=== PATIENT | male | born 1955 | race Hispanic/Latino ===

== ENCOUNTER 2021-10-13 20:46 | Inpatient (IN) | payer MEDICARE, OTHER ==
[~2021-10-13] VITALS: Ht 172.7 cm; Wt 68.5 kg
[2021-10-13 21:41] LABS: BASOPHILS % (AUTO) 1.2 % (0.0-5.0); EOSINOPHILS % (AUTO) 2.4 % (0.0-8.0); LYMPHOCYTES % (AUTO) 19.6 % (21.0-51.0); MEAN CORPUSCULAR HEMOGLOBIN 24.6 pg (27.0-33.0); MEAN CORPUSCULAR VOLUME 81.9 fL (79-99); MONOCYTES % (AUTO) 10.6 % (3.0-13.0); NEUTROPHILS % (AUTO) 65.8 % (40.0-77.0); PLATELET COUNT (AUTO) 302 K/uL (130-400); RED BLOOD CELL COUNT(AUTO) 2.48 MIL/uL (4.50-6.20); RED CELL DISTRIBUTION WIDTH 21.5 % (11.0-15.5); WHITE BLOOD COUNT (AUTO) 7.8 K/uL (4.8-10.8)
[2021-10-13 21:49] LABS: HEMATOCRIT 20.3 % (42-54)
[2021-10-13 21:50] LABS: CREATININE 1.3 mg/dL (0.5-1.5); POTASSIUM 3.5 mmol/L (3.5-5.1)
[2021-10-13 21:55] LABS: ALBUMIN 2.5 g/dL (3.5-5.0); TOTAL PROTEIN, SERUM 7.4 g/dL (6.0-8.3)
[2021-10-13 22:08] LABS: APPEARANCE,URINE CLEAR (CLEAR); BILIRUBIN,URINE NEGATIVE (NEGATIVE); COLOR,URINE YELLOW (YELLOW); GLUCOSE, URINE (UA) 100 mg/dL (NEGATIVE); KETONES,URINE NEGATIVE (NEGATIVE); LEUKOCYTE ESTERASE ,URINE NEGATIVE (NEGATIVE); NITRATE,URINE NEGATIVE (NEGATIVE); OCCULT BLOOD,URINE NEGATIVE (NEGATIVE); PROTEIN,URINE NEGATIVE (NEGATIVE); UROBILINOGEN,URINE 0.2 mg/dL (0.2-1.0)
[2021-10-13] MEDS ORDERED: ACETAMINOPHEN 325 MG TAB PO PRN (22:30)
[2021-10-13] MEDS ORDERED: PANTOPRAZOLE 40 MG/VIAL IVP ONE (22:30)
[2021-10-13] MEDS ORDERED: ZOLPIDEM TARTRATE 5 MG TAB PO PRN (22:30)
[2021-10-13] MEDS ORDERED: ONDANSETRON 4MG INJ IV PRN (22:30)
[2021-10-13 22:43] LABS: RBC,URINE 0-1 /HPF (0-1); WBC,URINE 0-1 /HPF (0-1)
[2021-10-13 22:44] LABS: BACTERIA,URINE None Seen /HPF (None Seen); SQUAMOUS EPITHELIAL CELL,UR Rare /HPF (0-2)
[2021-10-14] MEDS: LACTULOSE 20 GM/30 ML UDCUP PO SCH ×4 (02:17→21:47)
[2021-10-14] MEDS ORDERED: LACT10SO5 PO (02:23)
[2021-10-14] MEDS ORDERED: SIMV-43 PO (02:27)
[2021-10-14] MEDS ORDERED: GLIP5TAB11 PO (02:27)
[2021-10-14] MEDS ORDERED: VITA1TAB22 PO (02:27)
[2021-10-14] MEDS ORDERED: SPIR50TA5 PO (02:27)
[2021-10-14] MEDS ORDERED: LISI10TA24 PO (02:27)
[2021-10-14] MEDS ORDERED: METF-446 PO (02:27)
[2021-10-14] MEDS ORDERED: PANT40TA54 PO (02:27)
[2021-10-14] MEDS ORDERED: FURO40TA5 PO (02:27)
[2021-10-14 06:11] LABS: BASOPHILS % (AUTO) 1.7 % (0.0-5.0); EOSINOPHILS % (AUTO) 5.1 % (0.0-8.0); HEMATOCRIT 23.8 % (42-54); LYMPHOCYTES % (AUTO) 24.2 % (21.0-51.0); MEAN CORPUSCULAR HGB CONC 31.5 g/dL (32.0-36.0); MEAN CORPUSCULAR VOLUME 82.6 fL (79-99); MONOCYTES % (AUTO) 11.6 % (3.0-13.0); NEUTROPHILS % (AUTO) 57.1 % (40.0-77.0); PLATELET COUNT (AUTO) 276 K/uL (130-400); RED BLOOD CELL COUNT(AUTO) 2.88 MIL/uL (4.50-6.20); RED CELL DISTRIBUTION WIDTH 20.1 % (11.0-15.5); WHITE BLOOD COUNT (AUTO) 6.5 K/uL (4.8-10.8)
[2021-10-14 06:24] LABS: HEMOGLOBIN A1C 8.4 % (4.0-6.0)
[2021-10-14 06:25] LABS: CREATININE 1.1 mg/dL (0.5-1.5); MAGNESIUM 1.4 mg/dL (1.80-2.40); PHOSPHORUS 2.7 mg/dL (2.5-4.9); POTASSIUM 3.6 mmol/L (3.5-5.1)
[2021-10-14] MEDS: INSULIN HUMULIN R 100 UNIT/ML 3ML SQ SCH ×4 (07:30→21:51)
[2021-10-14] MEDS ORDERED: PANTOPRAZOLE 40 MG/VIAL IVP SCH (09:00)
[2021-10-14 09:57] LABS: HEMATOCRIT 26.2 % (42-54)
[2021-10-14] MEDS: MAGNESIUM 2GM PREMIX 50ML 50 ML IV SCH (10:08)
[2021-10-14 10:10] LABS: INR 1.1 (0.85-1.15); PROTHROMBIN TIME 11.9 SEC (9.6-11.6)
[2021-10-14 10:11] LABS: PARTIAL THROMBOPLASTIN TIME 26.4 SEC (26.3-35.5)
[2021-10-14] MEDS ORDERED: FOLIC ACID 5 MG/ML VIAL IV SCH (11:30)
[2021-10-14 12:00] VITALS: BP 131/67
[2021-10-14] MEDS ORDERED: COMPOUND IV REFRIGERATED 1 EACH IVSOLN MISC PRN (12:00)
[2021-10-14] MEDS ORDERED: LACTULOSE 20 GM/30 ML UDCUP PO SCH (12:30)
[2021-10-14] MEDS: CEFTRIAXONE 1G VIAL IVP SCH (13:34)
[2021-10-14] MEDS: THIAMINE HCL 100 MG/ML 2ML VIAL IVP SCH (13:34)
[2021-10-14 16:00] VITALS: BP 132/62
[2021-10-14 17:08] LABS: HEMATOCRIT 24.6 % (42-54)
[2021-10-14 20:00] VITALS: BP 136/70
[2021-10-14] MEDS: PANTOPRAZOLE 40 MG/VIAL IVP SCH (21:46)
[2021-10-14 21:51] LABS: HEMATOCRIT 25.1 % (42-54)
[2021-10-14 23:30] VITALS: BP 116/58
[2021-10-15] VITALS (12 sets, daily range): BP systolic 95–139; BP diastolic 53–80
[2021-10-15] MEDS: LACTULOSE 20 GM/30 ML UDCUP PO SCH ×4 (04:11→20:48)
[2021-10-15 05:20] LABS: BASOPHILS % (AUTO) 1.7 % (0.0-5.0); EOSINOPHILS % (AUTO) 4.3 % (0.0-8.0); HEMATOCRIT 26.3 % (42-54); LYMPHOCYTES % (AUTO) 19.2 % (21.0-51.0); MEAN CORPUSCULAR HEMOGLOBIN 25.7 pg (27.0-33.0); MEAN CORPUSCULAR HGB CONC 30.8 g/dL (32.0-36.0); MEAN CORPUSCULAR VOLUME 83.5 fL (79-99); MONOCYTES % (AUTO) 9.4 % (3.0-13.0); NEUTROPHILS % (AUTO) 65.3 % (40.0-77.0); PLATELET COUNT (AUTO) 314 K/uL (130-400); RED BLOOD CELL COUNT(AUTO) 3.15 MIL/uL (4.50-6.20); RED CELL DISTRIBUTION WIDTH 20.4 % (11.0-15.5); WHITE BLOOD COUNT (AUTO) 7.7 K/uL (4.8-10.8)
[2021-10-15 05:43] LABS: ALBUMIN 2.5 g/dL (3.5-5.0); CREATININE 1.3 mg/dL (0.5-1.5); MAGNESIUM 1.7 mg/dL (1.80-2.40); POTASSIUM 3.6 mmol/L (3.5-5.1); TOTAL PROTEIN, SERUM 7.7 g/dL (6.0-8.3)
[2021-10-15] MEDS ORDERED: KCL 20 MEQ ERTAB PO ONE (06:11)
[2021-10-15] MEDS: MAGNESIUM 2GM PREMIX 50ML 50 ML IV SCH ×2 (06:12→08:57)
[2021-10-15] MEDS: INSULIN HUMULIN R 100 UNIT/ML 3ML SQ SCH ×4 (06:22→20:48)
[2021-10-15] MEDS: PANTOPRAZOLE 40 MG/VIAL IVP SCH ×2 (08:56→20:48)
[2021-10-15] MEDS ORDERED: PROPOFOL 10 MG/ML 20ML VIAL IV ONE ×2 (11:45→11:46)
[2021-10-15] MEDS: CEFTRIAXONE 1G VIAL IVP SCH (16:00)
[2021-10-15] MEDS: THIAMINE HCL 100 MG/ML 2ML VIAL IVP SCH (16:00)
[2021-10-15] MEDS: METOCLOPRAMIDE 10 MG/2 ML VIAL IVP SCH (16:07)
[2021-10-16] VITALS (13 sets, daily range): BP systolic 104–133; BP diastolic 54–71
[2021-10-16] MEDS: LACTULOSE 20 GM/30 ML UDCUP PO SCH ×4 (01:00→16:20)
[2021-10-16] MEDS: INSULIN HUMULIN R 100 UNIT/ML 3ML SQ SCH ×4 (06:48→20:36)
[2021-10-16 06:51] LABS: EOSINOPHILS % (AUTO) 5.2 % (0.0-8.0); HEMATOCRIT 24.4 % (42-54); LYMPHOCYTES % (AUTO) 28.4 % (21.0-51.0); MEAN CORPUSCULAR HEMOGLOBIN 25.7 pg (27.0-33.0); MEAN CORPUSCULAR HGB CONC 30.7 g/dL (32.0-36.0); MEAN CORPUSCULAR VOLUME 83.6 fL (79-99); MONOCYTES % (AUTO) 9.5 % (3.0-13.0); NEUTROPHILS % (AUTO) 54.7 % (40.0-77.0); PLATELET COUNT (AUTO) 248 K/uL (130-400); RED BLOOD CELL COUNT(AUTO) 2.92 MIL/uL (4.50-6.20); RED CELL DISTRIBUTION WIDTH 20.1 % (11.0-15.5); WHITE BLOOD COUNT (AUTO) 5.9 K/uL (4.8-10.8)
[2021-10-16 07:10] LABS: ALBUMIN 2.2 g/dL (3.5-5.0); CREATININE 1.1 mg/dL (0.5-1.5); POTASSIUM 3.6 mmol/L (3.5-5.1); TOTAL PROTEIN, SERUM 6.6 g/dL (6.0-8.3)
[2021-10-16] MEDS: METOCLOPRAMIDE 10 MG/2 ML VIAL IVP SCH ×3 (08:45→18:24)
[2021-10-16] MEDS: PANTOPRAZOLE 40 MG/VIAL IVP SCH (08:46)
[2021-10-16] MEDS: THIAMINE HCL 100 MG/ML 2ML VIAL IVP SCH (11:30)
[2021-10-16] MEDS ORDERED: PROPOFOL 10 MG/ML 20ML VIAL IV ONE (11:52)
[2021-10-16] MEDS ORDERED: LIDOCAINE PF 100MG/5ML (2%) SYRINGE 5ML ONE (11:53)
[2021-10-16] MEDS: CEFTRIAXONE 1G VIAL IVP SCH (13:02)
[2021-10-16] MEDS ORDERED: OCTREOTIDE 1,250 MCG /NS 250ML (DRIP) IV SCH ×2 (18:00)
[2021-10-16] MEDS: PANTOPRAZOLE 80 MG/NS 100ML IVP SCH ×2 (19:05)
[2021-10-17] MEDS: PANTOPRAZOLE 80 MG/NS 100ML IVP SCH ×4 (03:24→14:26)
[2021-10-17 04:33] VITALS: BP 126/69
[2021-10-17] MEDS: INSULIN HUMULIN R 100 UNIT/ML 3ML SQ SCH ×4 (07:06→21:06)
[2021-10-17] MEDS: LACTULOSE 20 GM/30 ML UDCUP PO SCH ×3 (07:08→19:06)
[2021-10-17 07:35] LABS: BASOPHILS % (AUTO) 2.3 % (0.0-5.0); EOSINOPHILS % (AUTO) 4.6 % (0.0-8.0); HEMATOCRIT 23.7 % (42-54); MEAN CORPUSCULAR HEMOGLOBIN 25.6 pg (27.0-33.0); MEAN CORPUSCULAR HGB CONC 30.8 g/dL (32.0-36.0); MEAN CORPUSCULAR VOLUME 83.2 fL (79-99); MONOCYTES % (AUTO) 10.6 % (3.0-13.0); NEUTROPHILS % (AUTO) 53.1 % (40.0-77.0); PLATELET COUNT (AUTO) 264 K/uL (130-400); RED BLOOD CELL COUNT(AUTO) 2.85 MIL/uL (4.50-6.20); RED CELL DISTRIBUTION WIDTH 19.8 % (11.0-15.5); WHITE BLOOD COUNT (AUTO) 5.2 K/uL (4.8-10.8)
[2021-10-17] MEDS: METOCLOPRAMIDE 10 MG/2 ML VIAL IVP SCH ×3 (07:52→19:06)
[2021-10-17 07:57] LABS: ALBUMIN 2.2 g/dL (3.5-5.0); CREATININE 1.1 mg/dL (0.5-1.5); POTASSIUM 4.5 mmol/L (3.5-5.1); TOTAL PROTEIN, SERUM 6.9 g/dL (6.0-8.3)
[2021-10-17 08:00] VITALS: BP 149/74
[2021-10-17] MEDS: THIAMINE HCL 100 MG/ML 2ML VIAL IVP SCH (11:30)
[2021-10-17] MEDS: CEFTRIAXONE 1G VIAL IVP SCH (11:39)
[2021-10-17 13:23] VITALS: BP 135/76
[2021-10-17 15:34] LABS: HEMATOCRIT 27.1 % (42-54)
[2021-10-17 17:00] VITALS: BP 106/69
[2021-10-17] MEDS: MAGNESIUM 2GM PREMIX 50ML 50 ML IV SCH (19:07)
[2021-10-17 21:12] VITALS: BP 152/94
[2021-10-17 23:39] LABS: HEMATOCRIT 28.2 % (42-54)
[2021-10-17 23:58] VITALS: BP 130/73
[2021-10-18] MEDS: LACTULOSE 20 GM/30 ML UDCUP PO SCH ×3 (00:54→11:16)
[2021-10-18 04:45] VITALS: BP 98/42
[2021-10-18] MEDS: METOCLOPRAMIDE 10 MG/2 ML VIAL IVP SCH ×2 (06:18→11:16)
[2021-10-18] MEDS: PANTOPRAZOLE 80 MG/NS 100ML IVP SCH ×4 (06:19→10:00)
[2021-10-18] MEDS: INSULIN HUMULIN R 100 UNIT/ML 3ML SQ SCH ×2 (06:23→11:16)
[2021-10-18 06:33] LABS: HEMATOCRIT 22.8 % (42-54)
[2021-10-18 08:00] VITALS: BP 137/72
[2021-10-18] MEDS ORDERED: IRON SUCROSE COMPLEX 100 MG in 0.9%NACL 50ML 50 ML IV SCH (10:30)
[2021-10-18] MEDS ORDERED: IRON SUCROSE COMPLEX 100 MG/5 ML VIAL IVP SCH (10:45)
[2021-10-18] MEDS: THIAMINE HCL 100 MG/ML 2ML VIAL IVP SCH (10:54)
[2021-10-18] MEDS: CEFTRIAXONE 1G VIAL IVP SCH (11:15)
[2021-10-18 12:00] VITALS: BP 117/62
[2021-10-18 13:55] LABS: HEMATOCRIT 25.1 % (42-54)
[2021-10-18] MEDS ORDERED: EPOETIN ALFA-EPBX (NON-ESRD) 10,000 UNIT/ML VIAL SQ SCH (15:30)
[2021-10-18 15:45] LABS: RETICULOCYTE % (AUTO) 1.75 % (0.42-2.23)
[2021-10-18 15:51] LABS: INR 1.19 (0.85-1.15); PROTHROMBIN TIME 12.8 SEC (9.6-11.6)
[2021-10-18 15:53] LABS: PARTIAL THROMBOPLASTIN TIME 32.4 SEC (26.3-35.5)
[2021-10-18 16:09] LABS: THYROID STIMULATING HORMONE 0.13 uIU/mL (0.36-3.74)
[2021-10-18 16:33] LABS: % IRON SATURATION 73.6 % (30-44)
[2021-10-18] MEDS ORDERED: LACTULOSE 20 GM/30 ML UDCUP PO SCH (21:00)
[2021-10-19] MEDS ORDERED: FUROSEMIDE 40 MG TABLET PO SCH (09:00)
[2021-10-19] MEDS ORDERED: SPIRONOLACTONE 25 MG TAB PO SCH (09:00)
== END 2021-10-18 18:30 | disposition left against medical advice (07) | DRG 432 ==
LOC: EDH 20:46 → EDHIP 22:12 → 3DH 10-14 10:43
PROVIDERS: ADMIT Hospitalist; ATTEND Hospitalist
PROC: 30233N1 Transfusion of Nonautologous Red Blood Cells into Peripheral Vein, Percutaneous Approach (ICD-10-PCS; 2021-10-13)
PROC: 0DJ08ZZ Inspection of Upper Intestinal Tract, Via Natural or Artificial Opening Endoscopic (ICD-10-PCS; 2021-10-15)
PROC: 0W3P8ZZ Control Bleeding in Gastrointestinal Tract, Via Natural or Artificial Opening Endoscopic (ICD-10-PCS; principal; 2021-10-16)
DX: K70.30 Alcoholic cirrhosis of liver without ascites (principal); K31.811 Angiodysplasia of stomach and duodenum with bleeding; D62 Acute posthemorrhagic anemia; E87.1 Hypo-osmolality and hyponatremia; K76.6 Portal hypertension; I85.00 Esophageal varices without bleeding; K70.40 Alcoholic hepatic failure without coma; E11.65 Type 2 diabetes mellitus with hyperglycemia; Z53.29 Procedure and treatment not carried out because of patient's decision for other reasons; Z20.822 Contact with and (suspected) exposure to COVID-19; E78.00 Pure hypercholesterolemia, unspecified; E78.5 Hyperlipidemia, unspecified; F17.210 Nicotine dependence, cigarettes, uncomplicated; I10 Essential (primary) hypertension; J44.9 Chronic obstructive pulmonary disease, unspecified; K21.9 Gastro-esophageal reflux disease without esophagitis; M19.90 Unspecified osteoarthritis, unspecified site; E87.8 Other disorders of electrolyte and fluid balance, not elsewhere classified; K31.89 Other diseases of stomach and duodenum
CPT/HCPCS: 36415; 43255; 76700; 80048; 80053; 81001; 82140; 82270; 82728; 82746; 82948; 83036; 83540; 83550; 83735; 84100; 84443; 85014; 85018; 85025; 85045; 85610; 85730; 86850; 86900; 86901; 86923; 87635; C9113; G0378; J0696; J1756; J1815; J2001; J2354; J2405; J2704; J2765; J3411; J3475; J3490; J7050; P9016

== ENCOUNTER → 2023-10-11 | Outpatient (CLI) | payer OTHER ==
[~2023-10-11] MED LIST: ALBUMIN (HUMAN) 25% 200 ML IV ONE; FURO40TA5 PO; GLIP5TAB15 PO; LACT10SO5 PO; LISI10TA24 PO; METF-446 PO; PANT40TA54 PO; SIMV-43 PO; SPIR50TA5 PO; VITA-427 PO
[2023-10-11 08:40] LABS: INR 1.16 (0.85-1.15); PROTHROMBIN TIME 12.4 SEC (9.6-11.6)
[2023-10-11 08:42] LABS: PARTIAL THROMBOPLASTIN TIME 30.3 SEC (26.3-35.5)
[2023-10-11 13:29] LABS: BF EOSINOPHIL 1 %; BF LYMPHOCYTE 16 %; BF MACROPHAGE 15; BF MESOTHELIAL 56 %; BF MONOCYTE 7 %; BF TOTAL CELLS COUNTED 100
[2023-10-11 13:35] LABS: APPEARANCE BODY FLUID SLIGHTLY CLOUDY (CLEAR); COLOR,BODY FLUID YELLOW (LT YELLOW); SPECIMENTYPE,BODY FLUID ASCITES; TOTAL VOLUME,BODY FLUID 6900 mL
[2023-10-11 13:40] LABS: BODY FLUID RBC 904 /cu. mm.; BODY FLUID WBC 556 /cu. mm.
== END | disposition home or self-care (01) ==
LOC: RAH 07:52
PROVIDERS: ATTEND Family Medicine
DX: K70.31 Alcoholic cirrhosis of liver with ascites (principal); R94.5 Abnormal results of liver function studies; D64.9 Anemia, unspecified; H04.123 Dry eye syndrome of bilateral lacrimal glands; E11.3299 Type 2 diabetes mellitus with mild nonproliferative diabetic retinopathy without macular edema, unspecified eye; H35.033 Hypertensive retinopathy, bilateral; H40.013 Open angle with borderline findings, low risk, bilateral; H52.4 Presbyopia; H90.3 Sensorineural hearing loss, bilateral; E11.65 Type 2 diabetes mellitus with hyperglycemia; R60.9 Edema, unspecified; D72.829 Elevated white blood cell count, unspecified; I85.00 Esophageal varices without bleeding; I10 Essential (primary) hypertension; K21.9 Gastro-esophageal reflux disease without esophagitis; K76.82 Hepatic encephalopathy; E78.5 Hyperlipidemia, unspecified; D50.9 Iron deficiency anemia, unspecified; K63.5 Polyp of colon; K76.6 Portal hypertension; I81 Portal vein thrombosis; R76.0 Raised antibody titer; B35.6 Tinea cruris; B35.1 Tinea unguium; Z60.2 Problems related to living alone; Z79.899 Other long term (current) drug therapy
CPT/HCPCS: 49083; 89051; 85610; 85730; 87071; 87205; 36415; P9046; C1729; 96365

== ENCOUNTER → 2023-10-28 | Outpatient (CLI) | payer OTHER ==
[~2023-10-28] MED LIST changes: -ALBUMIN (HUMAN) 25% 200 ML IV ONE
== END | disposition home or self-care (01) ==
LOC: RAH 09:48
PROVIDERS: ATTEND Family Medicine
DX: K70.31 Alcoholic cirrhosis of liver with ascites (principal)
CPT/HCPCS: 49083; C1729

== ENCOUNTER → 2023-11-11 | Outpatient (CLI) | payer OTHER ==
[2023-11-11 14:12] LABS: APPEARANCE BODY FLUID TURBID (CLEAR); SPECIMENTYPE,BODY FLUID ASCITES
[2023-11-11 14:13] LABS: COLOR,BODY FLUID OTHER (LT YELLOW); TOTAL VOLUME,BODY FLUID 3800 mL
[2023-11-11 14:42] LABS: BODY FLUID RBC 772 /cu. mm.; BODY FLUID WBC 87 /cu. mm.
[2023-11-11 19:49] LABS: BF LYMPHOCYTE 28 %; BF MACROPHAGE 61; BF MESOTHELIAL 9 %; BF TOTAL CELLS COUNTED 100
== END | disposition home or self-care (01) ==
LOC: RAH 09:06
PROVIDERS: ATTEND Family Medicine
DX: K70.31 Alcoholic cirrhosis of liver with ascites (principal)
CPT/HCPCS: 49083; 89051; 87086; 87186; 87205; 87071; C1729

== ENCOUNTER → 2023-12-09 | Outpatient (CLI) | payer OTHER ==
[~2023-12-09] MED LIST changes: +ALBUMIN (HUMAN) 25% 200 ML IV ONE
== END | disposition home or self-care (01) ==
LOC: RAH 08:52
PROVIDERS: ATTEND Family Medicine
DX: K70.31 Alcoholic cirrhosis of liver with ascites (principal); K76.6 Portal hypertension; R63.5 Abnormal weight gain; K21.9 Gastro-esophageal reflux disease without esophagitis; I10 Essential (primary) hypertension; E11.9 Type 2 diabetes mellitus without complications; E78.5 Hyperlipidemia, unspecified; Z79.4 Long term (current) use of insulin; Z79.899 Other long term (current) drug therapy
CPT/HCPCS: 49083; P9046; C1729

== ENCOUNTER → 2023-12-23 | Outpatient (CLI) | payer OTHER | END | disposition home or self-care (01) | LOC: RAH 09:06 | PROVIDERS: ATTEND Family Medicine | DX: K70.31 Alcoholic cirrhosis of liver with ascites (principal); I10 Essential (primary) hypertension; E11.9 Type 2 diabetes mellitus without complications; R63.5 Abnormal weight gain; E78.5 Hyperlipidemia, unspecified; K21.9 Gastro-esophageal reflux disease without esophagitis; K76.6 Portal hypertension; Z79.899 Other long term (current) drug therapy | CPT/HCPCS: 49083; P9046; C1729 ==

== ENCOUNTER 2024-01-11 12:20 | Emergency (ER) | payer OTHER ==
[~2024-01-11] VITALS: Ht 167.6 cm; Wt 86.2 kg
[~2024-01-11 12:20] MED LIST changes: -ALBUMIN (HUMAN) 25% 200 ML IV ONE
[2024-01-11 13:28] LABS: BASOPHILS # (AUTO) 0.14 K/uL (0.00-0.20); BASOPHILS % (AUTO) 1.6 % (0.0-5.0); EOSINOPHILS # (AUTO) 0.34 K/uL (0.00-0.70); EOSINOPHILS % (AUTO) 3.9 % (0.0-8.0); LYMPHOCYTES # (AUTO) 1.1 K/uL (1.0-4.8); LYMPHOCYTES % (AUTO) 12.9 % (21.0-51.0); MEAN CORPUSCULAR HEMOGLOBIN 34.1 pg (27.0-33.0); MEAN CORPUSCULAR HGB CONC 32.9 g/dL (32.0-36.0); MEAN CORPUSCULAR VOLUME 103.5 fL (79-99); MONOCYTES # (AUTO) 0.8 K/uL (0.1-1.0); NEUTROPHILS # (AUTO) 6.3 K/uL (1.8-7.7); NEUTROPHILS % (AUTO) 71.5 % (40.0-77.0); PLATELET COUNT (AUTO) 198 K/uL (130-400); RED BLOOD CELL COUNT(AUTO) 3.67 MIL/uL (4.50-6.20); RED CELL DISTRIBUTION WIDTH 15.9 % (11.0-15.5); WHITE BLOOD COUNT (AUTO) 8.8 K/uL (4.8-10.8)
[2024-01-11 13:37] LABS: CREATININE 1.5 mg/dL (0.5-1.3); POTASSIUM 3.6 mmol/L (3.5-5.1)
[2024-01-11 15:06] LABS: INR 1.13 (0.85-1.15); PROTHROMBIN TIME 12.1 SEC (9.6-11.6)
[2024-01-11 15:08] LABS: PARTIAL THROMBOPLASTIN TIME 25.7 SEC (26.3-35.5)
[2024-01-11 15:13] VITALS: BP 107/56; PULSE 56; RESP 18; TEMP 98.4; O2SAT 100
== END 2024-01-11 15:28 | disposition home or self-care (01) ==
LOC: EDH 12:20
DX: R18.8 Other ascites (principal); R06.02 Shortness of breath; E11.9 Type 2 diabetes mellitus without complications; E78.00 Pure hypercholesterolemia, unspecified; I10 Essential (primary) hypertension; Z79.84 Long term (current) use of oral hypoglycemic drugs; Z79.899 Other long term (current) drug therapy
CPT/HCPCS: 36415; 76705; 80048; 85025; 85610; 85730

== ENCOUNTER → 2024-01-17 | Outpatient (CLI) | payer OTHER | END | disposition home or self-care (01) | LOC: RAH 07:41 | PROVIDERS: ATTEND Family Medicine | DX: K70.31 Alcoholic cirrhosis of liver with ascites (principal); I10 Essential (primary) hypertension; E11.319 Type 2 diabetes mellitus with unspecified diabetic retinopathy without macular edema; E78.5 Hyperlipidemia, unspecified; K21.9 Gastro-esophageal reflux disease without esophagitis; R63.5 Abnormal weight gain; K76.6 Portal hypertension; Z79.899 Other long term (current) drug therapy | CPT/HCPCS: 49083; C1729 ==

== ENCOUNTER → 2024-02-16 | Outpatient (CLI) | payer OTHER ==
[~2024-02-16] MED LIST changes: +ALBUMIN HUMAN 25% 200 ML IV ONE; +LACT-441 PO; -LACT10SO5 PO
--- NOTE | 2024-02-16 09:15 | NUR ---
U/S GUIDED PARACENTESIS PROCEDURE PERFORMED BY DR. Ashley SIM. PUNCTURE SITE RLQ AND PATIENT TOLERATED PROCEDURE WELL. TOTAL REMOVED 9.5 LITERS OF CLOUDY, MILO FLUID. ALBUMIN 25% 50 GRAMS IV GIVEN DURING PROCEDURE. END OF PROCEDURE AT 0850. CATHETER REMOVED AND DRESSING APPLIED- NO BLEEDING NOTED. PATIENT DISCHARGED VIA AMBULATORY IN STABLE CONDITION WITH NO C/O PAIN.
--- NOTE | 2024-02-16 10:47 | HMCIMG ---
US ABDOMINAL PARACENTESIS IR HISTORY: Ascites COMPARISON: None TECHNIQUE: Informed consent was obtained. Risks and benefits were explained to the patient. A timeout was performed. Patient was prepped and draped in a sterile fashion. Local anesthetics was given as required. Under ultrasound guidance, ascites fluid was localized. Paracentesis was performed. FINDINGS: 9.5 L of yellowish fluid was aspirated. Less than 2 cc blood loss is noted. Patient tolerated procedure without complication. Patient left the department in good condition. IMPRESSION: 1. Uncomplicated ultrasound guidance paracentesis.
== END | disposition home or self-care (01) ==
LOC: RAH 08:04
PROVIDERS: ATTEND Family Medicine
DX: K70.31 Alcoholic cirrhosis of liver with ascites (principal)
CPT/HCPCS: 49083; P9046; C1729

== ENCOUNTER → 2024-03-02 | Outpatient (CLI) | payer OTHER ==
[2024-03-02 10:12] LABS: INR 1.12 (0.85-1.15)
[2024-03-02 10:13] LABS: PARTIAL THROMBOPLASTIN TIME 26.2 SEC (26.3-35.5)
--- NOTE | 2024-03-02 10:30 | NUR ---
U/S GD PARACENTESIS PROCEDURE PERFORMED BY DR Janet SIM. PUNCTURE SITE RLQ AND PATIENT TOLERATED PROCEDURE WELL. TOTAL REMOVED 9.2 LITERS OF CLOUDY YELLOW FLUID. ALBUMIN 25% 50 GRAMS IV GIVEN DURING PROCEDURE. SPECIMEN SENT TO LAB. END OF PROCEDURE AT 0950. CATHETER REMOVED AND DRESSING APPLIED. NO BLEEDING NOTED. DISCHARGE INSTRUCTIONS GIVEN TO PATIENT AND VERBALIZED UNDERSTANDING. DISCHARGED VIA AMBULATION AT 1030. AAO X3 WITH NO C/O PAIN.
--- NOTE | 2024-03-02 11:07 | HMCIMG ---
US ABDOMINAL PARACENTESIS IR HISTORY: Ascites COMPARISON: None TECHNIQUE: Informed consent was obtained. Risks and benefits were explained to the patient. A timeout was performed. Patient was prepped and draped in a sterile fashion. Local anesthetics was given as required. Under ultrasound guidance, ascites fluid was localized. Paracentesis was performed. FINDINGS: 7 L of yellowish fluid was aspirated. Less than 2 cc blood loss is noted. Patient tolerated procedure without complication. Patient left the department in good condition. IMPRESSION: 1. Uncomplicated ultrasound guidance paracentesis.
== END | disposition home or self-care (01) ==
LOC: RAH 08:40
PROVIDERS: ATTEND Family Medicine
DX: K70.31 Alcoholic cirrhosis of liver with ascites (principal); E78.5 Hyperlipidemia, unspecified; K21.9 Gastro-esophageal reflux disease without esophagitis; I10 Essential (primary) hypertension; D64.9 Anemia, unspecified; L85.3 Xerosis cutis; E11.3299 Type 2 diabetes mellitus with mild nonproliferative diabetic retinopathy without macular edema, unspecified eye; Z79.4 Long term (current) use of insulin; Z79.899 Other long term (current) drug therapy
CPT/HCPCS: 49083; 85610; 85730; 36415; P9046; C1729

== ENCOUNTER → 2024-03-16 | Outpatient (CLI) | payer OTHER ==
--- NOTE | 2024-03-16 11:10 | NUR ---
U/S GD PARACENTESIS TOLERATED PROCEDURE. PERFORMED BY DR Janet SIM. 6.0 LITERS OF YELLOW CLOUDY FLUID REMOVED. PUNCTURE SITE TO LLQ. ALBUMIN 25% 50 GRAMS GIVEN IV. END OF PROCEDURE AT 1000. DRESSING DRY AND INTACT. NO BLEEDING NOTED. DISCHARGE INSTRUCTIONS GIVEN. VERBALIZED UNDERSTANDING. VIKAS PAIN. DISCHARGE VIA AMBULATORY. DENIES PAIN. A&O.
--- NOTE | 2024-03-16 11:40 | HMCIMG ---
US ABDOMINAL PARACENTESIS IR HISTORY: No additional history given. COMPARISON: None TECHNIQUE: Informed consent was obtained. Risks and benefits were explained to the patient. A timeout was performed. Patient was prepped and draped in a sterile fashion. Local anesthetics was given as required. Under ultrasound guidance, ascites fluid was localized. Paracentesis was performed. FINDINGS: 6 L of yellowish fluid was aspirated. Less than 2 cc blood loss is noted. Patient tolerated procedure without complication. Patient left the department in good condition. IMPRESSION: 1. Uncomplicated ultrasound guidance paracentesis.
== END | disposition home or self-care (01) ==
LOC: RAH 08:46
PROVIDERS: ATTEND Family Medicine
DX: K70.31 Alcoholic cirrhosis of liver with ascites (principal); K76.6 Portal hypertension; L85.3 Xerosis cutis; D50.9 Iron deficiency anemia, unspecified; I10 Essential (primary) hypertension; E11.9 Type 2 diabetes mellitus without complications; E78.5 Hyperlipidemia, unspecified; K21.9 Gastro-esophageal reflux disease without esophagitis; Z79.899 Other long term (current) drug therapy
CPT/HCPCS: 49083; P9046; C1729; 96365

== ENCOUNTER → 2024-03-27 | Outpatient (CLI) | payer OTHER ==
[~2024-03-27] MED LIST changes: -ALBUMIN HUMAN 25% 200 ML IV ONE
--- NOTE | 2024-03-27 10:45 | NUR ---
ULTRASOUND GUIDED PARACENTESIS PROCEDURE PERFORMED BY DR. Diallo HOUGH. PUNCTURE SITE LLQ AND PATIENT TOLERATED PROCEDURE WELL. TOTAL REMOVED 3.0 LITERS OF CLOUDY, MILKY YELLOW. END OF PROCEDURE AT 1025. CATHETER REMOVED AND DRESSING APPLIED- NO BLEEDING NOTED. DISCHARGE INSTRUCTIONS GIVEN TO PT. VERBALIZED UNDERSTANDING. DISCHARGE VIA AMBULATORY. ALERT AND ORIENTED WITH NO C/O PAIN.
--- NOTE | 2024-03-27 11:06 | HMCIMG ---
US ABDOMINAL PARACENTESIS IR REASON: ASCITES TECHNIQUE: Paracentesis was performed with ultrasound guidance. The puncture site was selected in the Left lower quadrant and overlying skin prepped and draped in a sterile fashion. 1% Xylocaine infiltration was performed. Catheter was placed in the fluid using trocar technique. 3 L were removed. Fluid sample was submitted for laboratory evaluation. The patient showed no evidence of complication during the procedure. IMPRESSION: 1. Ultrasound-guided paracentesis.
== END ==
LOC: RAH 08:49
PROVIDERS: ATTEND Family Medicine
DX: K70.31 Alcoholic cirrhosis of liver with ascites (principal); I10 Essential (primary) hypertension; E78.5 Hyperlipidemia, unspecified; E11.9 Type 2 diabetes mellitus without complications; Z86.2 Personal history of diseases of the blood and blood-forming organs and certain disorders involving the immune mechanism; Z87.891 Personal history of nicotine dependence; Z79.899 Other long term (current) drug therapy
CPT/HCPCS: 49083; C1729

== ENCOUNTER → 2024-04-13 | Outpatient (CLI) | payer OTHER ==
--- NOTE | 2024-04-13 10:53 | HMCIMG ---
US ABDOMINAL PARACENTESIS IR REASON: ASCITES TECHNIQUE: Paracentesis was performed with ultrasound guidance. The puncture site was selected in the Left lower quadrant and overlying skin prepped and draped in a sterile fashion. 1% Xylocaine infiltration was performed. Catheter was placed in the fluid using trocar technique. 3.7 L were removed. Fluid sample was submitted for laboratory evaluation. The patient showed no evidence of complication during the procedure. IMPRESSION: 1. Ultrasound-guided paracentesis.
--- NOTE | 2024-04-13 11:00 | NUR ---
U/S GD PARACENTESIS PROCEDURE PERFORMED BY DR Diallo HOUGH. PUNCTURE SITE LLQ AND PATIENT TOLERATED PROCEDURE WELL. TOTAL REMOVED 3.7 LITERS OF MILKY CLOUDY YELLOW FLUID. END OF PROCEDURE AT 1030. CATHETER REMOVED AND DRESSING APPLIED. NO BLEEDING NOTED. DISCHARGE INSTRUCTIONS GIVEN TO PATIENT AND VERBALIZED UNDERSTANDING. DISCHARGED VIA AMBULATION AT 1100. AAO X3 WITH NO C/O PAIN.
[2024-04-13 11:06] LABS: INR 1.1 (0.85-1.15); PROTHROMBIN TIME 12.2 SEC (9.6-11.6)
[2024-04-13 11:07] LABS: PARTIAL THROMBOPLASTIN TIME 29.2 SEC (26.3-35.5)
== END ==
LOC: RAH 08:37
PROVIDERS: ATTEND Family Medicine
DX: K70.31 Alcoholic cirrhosis of liver with ascites (principal); R94.5 Abnormal results of liver function studies; K21.9 Gastro-esophageal reflux disease without esophagitis; K76.82 Hepatic encephalopathy; K76.6 Portal hypertension; K72.10 Chronic hepatic failure without coma; E11.9 Type 2 diabetes mellitus without complications; E87.6 Hypokalemia; E78.5 Hyperlipidemia, unspecified; D64.9 Anemia, unspecified; Z79.4 Long term (current) use of insulin; Z79.899 Other long term (current) drug therapy
CPT/HCPCS: 49083; 85610; 85730; 36415; C1729

== ENCOUNTER → 2024-04-27 | Outpatient (CLI) | payer OTHER ==
--- NOTE | 2024-04-27 10:25 | NUR ---
U/S GD PARACENTESIS TOLERATED PROCEDURE. PERFORMED BY DR Diallo HOUGH. 3.8 LITERS OF MILKY YELLOW FLUID REMOVED FROM RLQ. END OF PROCEDURE AT 1005. DRESSING DRY AND INTACT. NO BLEEDING NOTED. DISCHARGE INSTRUCTIONS GIVEN. VERBALIZED UNDERSTANDING. DISCHARGED VIA AMBULATORY. DENIES PAIN. A&O.
--- NOTE | 2024-04-27 10:56 | HMCIMG ---
US ABDOMINAL PARACENTESIS IR REASON: ASCITES TECHNIQUE: Paracentesis was performed with ultrasound guidance. The puncture site was selected in the Right lower quadrant and overlying skin prepped and draped in a sterile fashion. 1% Xylocaine infiltration was performed. Catheter was placed in the fluid using trocar technique. 3.8 L were removed. Fluid sample was submitted for laboratory evaluation. The patient showed no evidence of complication during the procedure. IMPRESSION: 1. Ultrasound-guided paracentesis.
== END | disposition home or self-care (01) ==
LOC: RAH 09:02
PROVIDERS: ATTEND Family Medicine
DX: K70.31 Alcoholic cirrhosis of liver with ascites (principal); I12.0 Hypertensive chronic kidney disease with stage 5 chronic kidney disease or end stage renal disease; E11.22 Type 2 diabetes mellitus with diabetic chronic kidney disease; N18.6 End stage renal disease; E78.5 Hyperlipidemia, unspecified; K21.9 Gastro-esophageal reflux disease without esophagitis; Z86.2 Personal history of diseases of the blood and blood-forming organs and certain disorders involving the immune mechanism
CPT/HCPCS: 49083; C1729

== ENCOUNTER → 2024-05-10 | Outpatient (CLI) | payer OTHER ==
--- NOTE | 2024-05-10 08:20 | NUR ---
U/S GD PARACENTESIS NOT DONE U/S PERFORMED BY Diallo VILLASENOR RDMS. IMAGES REVIEWED BY DR Janet SIM. NOT ENOUGH FLUID TO SAFELY PERFORM PARACENTESIS. PT VERBALIZED UNDERSTANDING. DISCHARGE VIA AMBULATORY. DENIES PAIN. A&O.
--- NOTE | 2024-05-10 09:52 | HMCIMG ---
US ABD LIMITED/ABD WALL REASON: ASCITES. COMPARISON: None TECHNIQUE: Limited abdominal ultrasound images were obtained for paracentesis. FINDINGS: Only trace ascites is seen. Paracentesis was not performed. IMPRESSION: Trace ascites.
== END | disposition home or self-care (01) ==
LOC: RAH 07:50
PROVIDERS: ATTEND Family Medicine
DX: K70.31 Alcoholic cirrhosis of liver with ascites (principal)
CPT/HCPCS: 76705

== ENCOUNTER → 2024-06-08 | Outpatient (CLI) | payer OTHER ==
--- NOTE | 2024-06-08 09:10 | NUR ---
U/S GD PARACENTESIS NOT DONE U/S PERFORM BY Diallo VILLASENOR RDMS. IMAGES REVIEWED BY DR Baldev HARO. NOT ENOUGH FLUID TO PERFORM PROCEDURE SAFELY. PT INFORMED. VERBALIZED UNDERSTANDING. DISCHARGE VIA AMBULATORY. DENIES PAIN. A&O.
--- NOTE | 2024-06-08 12:26 | HMCIMG ---
Ascites SCAN History: Abdominal distention FINDINGS: There is a minimal amount of ascitic fluid. It is not enough for ultrasound-guided paracentesis. IMPRESSION: Minimal ascites, not enough for ultrasound-guided paracentesis.
== END | disposition home or self-care (01) ==
LOC: RAH 08:49
PROVIDERS: ATTEND Family Medicine
DX: R18.8 Other ascites (principal)
CPT/HCPCS: 76705

== ENCOUNTER → 2024-06-22 | Outpatient (CLI) | payer OTHER ==
--- NOTE | 2024-06-22 10:30 | NUR ---
RE: PARACENTESIS IMAGES TAKEN AND REVIEWED BY DR Bryant MENJIVAR. NO FLUID SEEN AND PROCEDURE CANCELLED. PATIENT MADE AWARE OF PROCEDURE OUTCOME AND VERBALIZED UNDERSTANDING. DISCHARGED WITH AMBULATION AT 1030.
--- NOTE | 2024-06-22 11:14 | HMCIMG ---
US ABDOMINAL PARACENTESIS IR REASON: ASCITES. COMPARISON: None TECHNIQUE: Limited abdominal ultrasound study was performed for paracentesis purpose. FINDINGS: No ascites fluid is seen. Therefore, paracentesis was not performed. IMPRESSION: No ascites fluid.
== END | disposition home or self-care (01) ==
LOC: RAH 10:01
PROVIDERS: ATTEND Family Medicine
DX: R18.8 Other ascites (principal); Z53.8 Procedure and treatment not carried out for other reasons
CPT/HCPCS: 49083; C1729

== ENCOUNTER → 2024-08-10 | Outpatient (CLI) | payer OTHER ==
--- NOTE | 2024-08-10 11:00 | NUR ---
U/S GD PARACENTESIS PROCEDURE PERFORMED BY DR Baldev HARO. PUNCTURE SITE LLQ AND PATIENT TOLERATED PROCEDURE WELL. TOTAL REMOVED 3.5 LITERS OF CLOUDY YELLOW FLUID. END OF PROCEDURE AT 1025. CATHETER REMOVED AND DRESSING APPLIED. NO BLEEDING NOTED. DISCHARGE INSTRUCTIONS GIVEN TO PATIENT AND VERBALIZED UNDERSTANDING. DISCHARGED VIA AMBULATION AT 1100. AAO X3 WITH NO C/O PAIN.
[2024-08-10 11:06] LABS: INR 1.09 (0.85-1.15); PROTHROMBIN TIME 11.5 SEC (9.6-11.6)
[2024-08-10 11:08] LABS: PARTIAL THROMBOPLASTIN TIME 27.8 SEC (26.3-35.5)
--- NOTE | 2024-08-10 13:40 | HMCIMG ---
ULTRASOUND GUIDED PARACENTESIS: INDICATION: Ascites TECHNIQUE: Informed consent was obtained. Timeout performed. All elements of maximal sterile barrier technique, including hand hygiene and cutaneous antisepsis were used. Patient was placed supine. Left lower quadrant was prepped and draped in sterile fashion. Local anesthesia was applied. Then, under ultrasound guidance, a 5F centesis needle was advanced through the abdominal wall and into a pocket of fluid in the peritoneum. It yielded 3.5 L of fluid. The catheter was removed and sterile dressing applied. Blood pressure monitoring was performed during the procedure. Complications: None Blood loss: <5 mL. IMPRESSION: Successful ultrasound guided paracentesis.
== END ==
LOC: RAH 09:14
PROVIDERS: ATTEND Family Medicine
DX: K70.31 Alcoholic cirrhosis of liver with ascites (principal); K21.9 Gastro-esophageal reflux disease without esophagitis; E11.9 Type 2 diabetes mellitus without complications; I10 Essential (primary) hypertension; E78.5 Hyperlipidemia, unspecified; Z79.899 Other long term (current) drug therapy; Z87.898 Personal history of other specified conditions; Z86.0100 Personal history of colon polyps, unspecified; Z86.2 Personal history of diseases of the blood and blood-forming organs and certain disorders involving the immune mechanism
CPT/HCPCS: 49083; 85610; 85730; 36415; C1729

== ENCOUNTER 2025-01-01 12:07 | Inpatient (IN) | payer OTHER, MEDICARE ==
[~2025-01-01] VITALS: Ht 172.7 cm; Wt 77.6 kg
[2025-01-01] VITALS (7 sets, daily range): BP systolic 119–130; BP diastolic 61–76; PULSE 69–90; RESP 16–24; TEMP 97.6–98.4; O2SAT 97–100
--- NOTE | 2025-01-01 12:19 | ERN ---
ED Note History of Present Illness Stated Complaint: LT LOWER EXTREMITY REDNESS,SWELLING,AND PAIN Chief Complaint: Lower Extremity Pain/Injury Time Seen by MD: 12:11 Dictation: PATIENT IS A 69-YEAR-OLD MALE COMING IN FROM THE [facility] LOCALLY WITH COMPLAINTS OF ERYTHEMA PAIN SWELLING TO THE LEFT CALF AND LEG FROM THE KNEE DOWN HE HAS HAD FOR 4-5 DAYS. LOW-GRADE FEVER NO CHILLS. STATES HE HAS BEEN ON SOME ANTIBIOTICS HOWEVER CAN NOT RECALL THE NAME. HE WAS SENT HERE BY THE [facility] FOR US TO EVALUATE. Allergies: Coded Allergies: No Known Allergies (Unverified Allergy, Unknown, 10/13/21) Home Meds Reported Medications Vitamin B Complex (Vitamin B Complex) 1 Each Tablet, 1 EACH PO DAILY, TAB 10/14/21 Lisinopril (Lisinopril) 10 Mg Tablet, 10 MG PO DAILY, TAB 10/14/21 Furosemide (Furosemide) 40 Mg Tablet, 40 MG PO DAILY, TAB 10/14/21 Pantoprazole Sodium (Pantoprazole Sodium) 40 Mg Tablet.dr, 40 MG PO DAILY, TAB 10/14/21 Metformin HCl (Metformin HCl) 1,000 Mg Tablet, 1000 MG PO DAILY, TAB 10/14/21 Simvastatin (Simvastatin) 20 Mg Tablet, 20 MG PO HS, TAB 10/14/21 Spironolactone (Spironolactone) 50 Mg Tablet, 50 MG PO DAILY, TAB 10/14/21 Glipizide (Glipizide) 5 Mg Tablet, 5 MG PO DAILY, TAB 10/14/21 Lactulose (Lactulose) 10 Gm/15 Ml Solution, 10 GM PO BID, ML 10/14/21 Past Medical History Past Medical History: Diabetes-Type II, Hypertension, Renal Failure, Other Additional Past Medical Hx: CIRRHOSIS OF LIVER Surgical History: Unknown Family History: Negative RN Note Reviewed/Agreed w/PFSH: Yes Review of System Dictation CONSTITUTIONAL: NEGATIVE EXCEPT FOR HPI HEAD/FACE: NEGATIVE EXCEPT FOR HPI EENT: NEGATIVE EXCEPT FOR HPI RESPIRATORY: NEGATIVE EXCEPT FOR HPI GASTROINTESTINAL/ABDOMINAL: NEGATIVE EXCEPT FOR HPI GENITOURINARY: NEGATIVE EXCEPT FOR HPI MUSCULOSKELETAL: NEGATIVE EXCEPT FOR HPI LEFT LOWER EXTREMITY ERYTHEMA PAIN SWELLING FROM KNEE DOWN INTEGUMENTARY: NEGATIVE EXCEPT FOR HPI NEUROLOGICAL/PSYCH: NEGATIVE EXCEPT FOR HPI HEMATOLOGIC/LYMPHATIC: NEGATIVE EXCEPT FOR HPI ALL SYSTEMS NEGATIVE, EXCEPT NOTED ABOVE. 13 POINT REVIEW OF SYSTEMS ASSESSED AND ALL NEGATIVE EXCEPT FOR ABOVE. Initial Vital Sign VS Vital Signs Date Time Temp Pulse Resp B/P (MAP) Pulse Ox O2 Delivery O2 Flow Rate FiO2 01/01/25 12:10 97.5 72 20 113/60 100 Room Air 01/01/25 13:52 0 21 Physical Exam Dictation VITAL SIGNS REVIEWED GENERAL APPEARANCE: ALERT, ORIENTED X 3, MILD ACUTE DISTRESS, WELL DEVELOPED, NOURISHED. HEAD AND FACE: NON-TRAUMATIC. EYES: PERRL, PINK CONJUNCTIVAS, EYELID NO TRAUMA, ANTERIOR CHAMBER WITH ARCUS SENILIS. EARS: PINNAS INTACT AND NO SIGNS OF TRAUMA OR ERYTHEMA EAR CANALS CLEAR AND NO DISCHARGE TM NO ERYTHEMA NOSE: NO DISCHARGE, NO BLEEDING. OROPHARYNX: MOUTH NORMAL, TONGUE PINK, PHARYNX CLEAR,NO ERYTHEMA, TONSILS NO EXUDATES, NO ABSCESSES NOTED, MUCOUS MEMBRANE MOIST NECK: SUPPLE, NON-TENDER, NO THYROMEGALY, NO MASSES, NO JVD, NO BRUITS BREAST:DEFERRED CHEST:NO TENDERNESS, NO CREPITUS, NO PARADOXICAL MOVEMENT, NO RETRACTIONS LUNGS:CLEAR, WELL-VENTILATED, SYMMETRIC, NO RALES, NO WHEEZING, NO RHONCHI, NO STRIDOR, GOOD BREATH SOUNDS BILATERALLY HEART: REGULAR RATE, REGULAR RHYTHM, NO MURMUR, NO GALLOPS VASCULAR: NO PERIPHERAL EDEMA, ABDOMEN: SOFT, POSITIVE BOWEL SOUNDS, NONDISTENDED, NO GUARDING, NONTENDER, NO REBOUND, NO MASSES NO HEPATOMEGALY, NO SPLENOMEGALY, NO MARCIAL'S SIGN, NO HERNIAS. RECTAL: DEFERRED GENITAL: DEFERRED NEUROLOGICAL: NORMAL SPEECH, MOTOR FUNCTION INTACT, SENSORY FUNCTION INTACT MUSCULOSKELETAL: NECK NONTENDER, FULL RANGE OF MOTION, BACK NONTENDER, FULL RANGE OF MOTION, EXTREMITIES: LEFT LEG WITH THE PAIN SWELLING ERYTHEMA FROM THE KNEE DOWN TO THE FOOT. PULSES ARE PALPABLE. TENDERNESS. SKIN: COLOR PINK, DRY, NO TURGOR, NO RASH, NO LACERATIONS, NO ABRASIONS, NO CONTUSIONS. LYMPHATIC: DEFERRED Results (Laboratory/Radiology) Laboratory/Radiology Laboratory Tests Test 01/01/25 12:00 01/01/25 12:35 Urine Color YELLOW (YELLOW) Urine Appearance CLEAR (CLEAR) Urine pH 5.5 (5.0-8.0) Urine Specific [place] 1.012 (1.001-1.031) Urine Protein NEGATIVE mg/dL (NEGATIVE) Urine Glucose (UA) NEGATIVE mg/dL (NEGATIVE) Urine Ketones NEGATIVE mg/dL (NEGATIVE) Urine Occult Blood NEGATIVE (NEGATIVE) Urine Nitrate NEGATIVE (NEGATIVE) Urine Bilirubin NEGATIVE mg/dL (NEGATIVE) Urine Urobilinogen 0.2 mg/dL (0.2-1.0) Urine Leukocyte Esterase 75 [place]/uL (NEGATIVE) H Urine RBC 0-1 /HPF (0-1) Urine WBC 2-5 /HPF (0-1) H Urine Squamous Epithelial Cells RARE /HPF (0-2) Urine Bacteria None /HPF (None Seen) Urine Hyaline Casts 11-25 /LPF (0-1 /LPF) H White Blood Count 11.9 K/uL (4.8-10.8) H Red Blood Count 3.35 MIL/uL (4.50-6.20) L Hemoglobin 11.4 g/dL (14.0-18.0) L Hematocrit 34.5 % (42-54) L Mean Corpuscular Volume 103.0 fL (79-99) H Mean Corpuscular Hemoglobin 34.0 pg (27.0-33.0) H Mean Corpuscular Hemoglobin Concent 33.0 g/dL (32.0-36.0) Red Cell Distribution Width 17.1 % (11.0-15.5) H Platelet Count 166 K/uL (130-400) Mean Platelet Volume 10.1 fL (7.5-10.5) Immature Granulocyte % (Auto) 0.4 % (0-1) Neutrophils (%) (Auto) 93.7 % (40.0-77.0) H Lymphocytes (%) (Auto) 3.3 % (21.0-51.0) L Monocytes (%) (Auto) 2.3 % (3.0-13.0) L Eosinophils (%) (Auto) 0.1 % (0.0-8.0) Basophils (%) (Auto) 0.2 % (0.0-5.0) Neutrophils # (Auto) 11.2 K/uL (1.8-7.7) H Lymphocytes # (Auto) 0.4 K/uL (1.0-4.8) L Monocytes # (Auto) 0.3 K/uL (0.1-1.0) Eosinophils # (Auto) 0.01 K/uL (0.00-0.70) Basophils # (Auto) 0.02 K/uL (0.00-0.20) Absolute Immature Granulocyte (auto 0.05 K/uL (0-1) Nucleated Red Blood Cells 0.0 % (0.0-0.19) White Cell Morphology Comment See comments Sodium Level 140 mmol/L (136-145) Potassium Level 3.2 mmol/L (3.5-5.1) L Chloride Level 102 mmol/L (101-111) Carbon Dioxide Level 30 mmol/L (21-32) Blood Urea Nitrogen 35 mg/dL (7-18) H Creatinine 1.4 mg/dL (0.5-1.3) H Glomerular Filtration Rate Calc 54 mL/min (>90) Random Glucose 169 mg/dL (70-105) H Lactic Acid Level 2.1 mmol/L (0.8-2.5) Total Calcium 8.6 mg/dL (8.5-10.1) Troponin I High Sensitivity 6 ng/L (4-75) 1325/DVT LEFT LEG DOPPLER STUDY NEGATIVE Labs Reviewed?: Yes EKG: (+) NSR EKG Comment: EKG NORMAL SINUS RHYTHM/HEART RATE 64/AXIS NORMAL/NO ECTOPY ED Course ED Course Orders Procedure Category Date Status Time Cbc With Differential LAB 01/01/25 Complete 12:13 Blood Cult DELORES 01/01/25 In Process 12:13 Urinalysis Profile LAB 01/01/25 Complete 12:13 Troponin I High LAB 01/01/25 Complete Sensitivity 12:13 Lactic Acid LAB 01/01/25 Complete 12:13 Basic Metabolic Panel LAB 01/01/25 Complete 12:13 12 Lead Ekg Tracing- EKG 01/01/25 Complete Technical 12:13 Us Venous Doppler US 01/01/25 Taken Unilateral 12:13 Clindamycin Ivpb PHA 01/01/25 Complete 600mg/50ml (Cleocin 12:13 0.9%Nacl 1000ml (Ns PHA 01/01/25 Complete 1000ml) 12:30 Culture Urine DELORES 01/01/25 In Process 12:38 Potassium Bicarb/Cit PHA 01/01/25 Complete Ac 25meq (K-Lyte Ta 13:00 Edm Admit Bridge Order ADM 01/01/25 Verified 14:02 Current Medications Medications (Trade) Dose Ordered Sig/Azael Route PRN Reason Start Time Stop Time Status Last Admin Dose Admin Clindamycin HCl/ Dextrose 50 ml @ 100 mls/hr ONCE STAT IV 01/01/25 12:13 01/01/25 12:42 DC 01/01/25 12:57 Potassium Bicarbonate (K-Lyte Tablet Eff 25 Meq Tablet.eff) 25 meq ONCE ONCE PO 01/01/25 13:00 01/01/25 13:01 DC 01/01/25 12:57 Sodium Chloride 1,000 ml @ 0 mls/hr ONCE ONCE IV 01/01/25 12:30 01/01/25 12:31 DC 01/01/25 12:57 Vital Signs Date Time Temp Pulse Resp B/P (MAP) Pulse Ox O2 Delivery O2 Flow Rate FiO2 01/01/25 13:52 97.9 70 20 119/76 100 Room Air* 0 21 01/01/25 12:10 97.5 72 20 113/60 100 Room Air 1400/spoke with , reviewed Doppler study labs and interventions for sepsis to include fluids and clindamycin. He agreed to admit patient. HEART Score Response (Comments) Value History: Low suspicion (0) 0 Age: > 65yrs (+2) 2 Risk Factors: 1-2 risk factors (+1) 1 Initial Troponin: Normal limit (0) 0 Total 3 Medical Decision Making MDM MDM: DIFFERENTIAL DIAGNOSIS: DVT/CELLULITIS/OUTPATIENT TREATMENT FAILURE/ELECTROLYTE IMBALANCE/DEHYDRATION/SEPSIS/UNCONTROLLED DIABETES/ACS RATIONALE: TESTS CONSIDERED AND ORDERED SECONDARY TO SHARED DECISION MAKING INCLUDE: LABS, ECG AND RADIOLOGY PREVIOUS OUTSIDE RECORDS REVIEWED: OLD ER VISITS. RISK OF COMPLICATION AND/OR MORBIDITY OR MORTALITY OF PATIENT MANAGEMENT: NONE MEDICATIONS-PER MEDICATION RECONCILIATION NEED FOR HOSPITALIZATION: PATIENT DOES MEET CRITERIA FOR HOSPITALIZATION. ADMITTED FOR SEPSIS MANAGEMENT FLUID RESUSCITATION ANTIBIOTICS AND POSSIBLE ID CONSULTATION PATIENT TREATMENT FAILURE NEED FOR EMERGENCY MAJOR/MINOR SURGERY: NO THERE ARE NO SOCIAL CONCERNS WITH THIS PATIENT. PRESCRIPTION DRUG MANAGEMENT PRESCRIPTIONS WILL INCLUDE SYMPTOMATIC CARE PATIENT'S PRIOR EXTERNAL MEDICAL RECORDS FROM OTHER ER VISITS WERE REVIEWED BY ME INDICATED. PRIOR TESTING AND RESULTS FROM PREVIOUS VISITS WERE REVIEWED. PRIOR TESTS WERE TAKEN INTO ACCOUNT WITH MEDICAL DECISION MAKING AND RESOURCE UTILIZATION, INDEPENDENT HISTORIAN/HISTORIANS WERE USED TO OBTAIN COMPLETE MEDICAL HISTORY. I INDEPENDENTLY INTERPRETED THE TEST THAT WERE PERFORMED, RESULTS WERE REVIEWED BY ME AND CONSIDERED FINDINGS ON RADIOLOGY IF ORDERED. MEDICAL MANAGEMENT AND EXAMINATION INTERPRETATION DISCUSSIONS WERE HAD BY ME WITH OTHER QUALIFIED HEALTHCARE PROFESSIONALS INDICATED FOR THE PATIENT'S CARE. DX & DISP Disposition: Inpatient Decision to Admit Time: 13:13 Departure Impression: Primary Impression: Cellulitis of left lower extremity from knee to ankle Additional Impressions: Stage 3 chronic kidney disease, Uncontrolled diabetes mellitus, Failure of outpatient treatment, Anemia of chronic renal failure, stage 3a, Sepsis Condition: Stable Referrals: ZOHRA REDDY MD (PCP) I have reviewed the case, and I agree with, Diagnosis and Plan ARPAN BELLAMY NP Jan 01, 2025 12:19
[2025-01-01 12:35] LABS: APPEARANCE,URINE CLEAR (CLEAR); GLUCOSE, URINE (UA) NEGATIVE (NEGATIVE); LEUKOCYTE ESTERASE ,URINE 75 Leu/uL (NEGATIVE); NITRATE,URINE NEGATIVE (NEGATIVE); OCCULT BLOOD,URINE NEGATIVE (NEGATIVE)
[2025-01-01 12:38] LABS: ADD UA MICROSCOPIC YES
[2025-01-01 12:42] LABS: SQUAMOUS EPITHELIAL CELL,UR RARE /HPF (0-2)
[2025-01-01 12:44] LABS: IMMATURE GRANULOCYTE ABSOLUTE 0.05 K/uL (0-1); NUCLEATED RED BLOOD CELLS 0.0 % (0.0-0.19); PLATELET COUNT (AUTO) 166 K/uL (130-400); RED BLOOD CELL COUNT(AUTO) 3.35 MIL/uL (4.50-6.20); RED CELL DISTRIBUTION WIDTH 17.1 % (11.0-15.5); WHITE BLOOD COUNT (AUTO) 11.9 K/uL (4.8-10.8)
[2025-01-01 12:49] LABS: CREATININE 1.4 mg/dL (0.5-1.3); GLOMERULAR FILTR. RATE CALC 54.0 mL/min (>90); GLUCOSE,RANDOM 169.0 mg/dL (70-105); SODIUM SERUM 140.0 mmol/L (136-145); UREA NITROGEN, BLOOD 35.0 mg/dL (7-18)
[2025-01-01] MEDS: CLINDAMYCIN IVPB 600MG/50ML 50 ML IV STA (12:57)
[2025-01-01] MEDS: 0.9%NACL 1000ML 1,000 ML IV ONE (12:57)
--- NOTE | 2025-01-01 13:23 | EKG ---
[facility] Test Date: 2025-01-01 Test Time: 12:41:07 Pat Name: EDWAR LOPEZ Department: [facility] Room: 317 Gender: M Line Service Technician: [id number] : 1955 Requested By: ARPAN BELLAMY Order Number: [id number] Reading MD: Sarai Amin Measurements Intervals [place] Rate: 64 P: 11 MT: 156 QRS: 37 QRSD: 92 T: 34 QT: 422 QTc: 435 Interpretive Statements Sinus rhythm No previous ECG available for comparison Electronically Signed On 01-01-2025 16:11:44 CDT by Sarai Amin Please click the below link to view image of tracing.
--- NOTE | 2025-01-01 14:08 | HMCIMG ---
EXAM: US for Deep Venous Thrombosis, left Lower Extremity. CLINICAL HISTORY: Leg Pain and Swelling TECHNIQUE: Real-time ultrasound scan of the veins of the left lower extremity with color Doppler flow, spectral waveform analysis and compression. COMPARISON: None provided. FINDINGS: DEEP VEINS: The common femoral, superficial femoral, and popliteal veins are echolucent and compressible. There is normal color Doppler flow throughout. The visualized calf veins appear patent. SOFT TISSUES: No popliteal fossa cyst or other abnormalities. IMPRESSION: 1. No evidence of deep venous thrombosis in the left lower extremity. /Carlos
[2025-01-01] MEDS ORDERED: VANCOMYCIN PROTOCOL PER PHARMACY IV SCH (14:30)
[2025-01-01] MEDS ORDERED: PHARMACY COMMUNICATION MISC SCH (14:30)
[2025-01-01 14:58] LABS: INR 1.15 (0.85-1.15)
[2025-01-01 15:07] LABS: ASPARTATE AMINOTRANSFERASE 43 U/L (10-37); LACTATE DEHYDROGENASE 366 U/L (81-234); TOTAL PROTEIN, SERUM 6.9 g/dL (6.0-8.3)
--- NOTE | 2025-01-01 15:52 | HMCIMG ---
EXAM: CR right Tibia and fibula, 2 View. CLINICAL HISTORY: non reoslving cellulitis of the LLE, hx of cirrhosis COMPARISON: None provided. FINDINGS: BONES: No acute fracture or aggressive appearing osseous lesion. JOINTS: No dislocation. The joint spaces are normal. SOFT TISSUES: Diffuse soft tissue swelling IMPRESSION: 1. No acute osseous injury. 2. Diffuse soft tissue swelling. /[place]
[2025-01-01] MEDS: VANCOMYCIN 2GM/500 ML BAG 500 ML IV ONE (16:02)
--- NOTE | 2025-01-01 16:36 | NUR ---
DCP: HOME Pt lives alone in his home. Pt uses Food bank when needed, states his children assist him as needed. Is A [place] and gets medical care at local [place] with Dr Dias. Pt states he remains able o complete ADLS, cook and clean on his own. Has a walker, hospital and shower chair at home. No provider or HH. Pt reports last paracentesis was a little over 6 weeks ago, but is here for infection on left leg that has not improved with oral ABX. Discussed possible need for SNF or LTAC, pt denied need and wants to return home at [place]. ER contact is son Torsten Dickinson [phone], who is a derrek at [employer] in [place]. Addendum: 01/01/25 at 1652 by LUCI FRIED Amended: Links added.
[2025-01-01] MEDS ORDERED: INSU3INS3 SQ (16:49)
[2025-01-01] MEDS ORDERED: PROP10TA10 PO (16:49)
[2025-01-01] MEDS ORDERED: HYDR-3421 PO (16:49)
[2025-01-01] MEDS ORDERED: LACT10SO85 PO (16:49)
[2025-01-01] MEDS ORDERED: FURO20TA4 PO (16:49)
--- NOTE | 2025-01-01 16:50 | NUR ---
INFECTIOUS CONSULT DONE
--- NOTE | 2025-01-01 16:52 | NUR ---
NEPHRO CONSULT DR BERG AWARE AND WILL SEE PATIENT
--- NOTE | 2025-01-01 16:53 | HP ---
[facility] HISTORY AND PHYSICAL Date of Service: Jan 01, 2025 Time of Service: 16:46 HISTORY OF PRESENT ILLNESS: Date of service: 01/01/2025, patient was seen in ER 2 PCP: Dr. Dias 69-year-old male with. underlying history of two diabetes mellitus, chronic kidn ey disease stage 3, history of alcoholic liver cirrhosis, history of recurrent ascites requiring paracentesis as outpatient, frailty, who presented to the ER for further evaluation of redness and swelling involving the left lower extremity. States that symptoms have been ongoing for about one week and he has noticed progressive pain and redness involving the left leg. Patient reports having subjective fevers, chills and malaise as outpatient. He was prescribed a course of oral antibiotics with Augmentin and doxycycline which he has been taking for several days with no significant improvement of the redness and swelling. He denies any antibiotic allergy. Patient reports having long-term history of alcoholic liver cirrhosis. he has a history of fluid retention, including tense ascites requiring paracentesis as outpatient. He has been maintained on outpatient diuretic regimen with Lasix and Aldactone. He reports having more abdominal distention recently. Patient is followed by Nephrology at [place] and reports that his baseline creatinine usually runs between 1.4-1.6. On presentation to the hospital, patient was noted to be afebrile with T-max of 97.9 F, heart rate of 71, blood pressure 139/68. [place] [address], hemoglobin of 11.4, MCV of 103, platelet count of [id number]. CMP showed sodium of 140, potassium 3.2, chloride of 102, BUN of 35, creatinine 1.4, blood glucose of 169, lactic acid of 2.1, procalcitonin 1.31, CRP of 135. Venous Doppler of the left lower extremity was negative for DVT. Patient will be admitted for further management of nonresolving progressive left lower extremity cellulitis. Patient will receive broad-spectrum antibiotics, consultation with Infectious Disease will be requested. Patient will be resumed on his diuretic regimen and we will see how patient progresses in the next 48-72 hours. REVIEW OF SYSTEMS CONSTITUTIONAL: subjective fever, chills and malaise NEUROLOGICAL: Denies headache, amaurosis fugax, motor weakness, sensory deficit, vertigo/spinning sensation, gait abnormalities, or tremors. ENT: No hearing loss, otalgia, otorrhea, rhinitis, rhinorrhea, hoarseness, or sore throat. CARDIOVASCULAR: Denies any exertional angina, dyspnea on exertion, orthopnea, paroxysmal nocturnal dyspnea, palpitations, life-threatening arrhythmias, claudication. PULMONARY: Denies any shortness of breath, cough, phlegm/sputum, hemoptysis, pleuritic chest pain. SLEEP: Denies morning headaches, daytime somnolence or napping. Denies difficulty falling asleep, staying asleep, waking from sleep. Denies knowledge of snoring. GASTROINTESTINAL: Denies any type of dysphagia to either liquids or solids. Denies nausea, vomiting, pyrosis, early satiety, abdominal pain, diarrhea, constipation, or changes in stool consistency or caliber. Denies coffee-ground emesis, hematemesis, hematochezia, or melanotic stools. GENITOURINARY: Denies frequency, urgency, nocturia, hematuria or incontinence (Storage/Irritative symptoms.) Low urinary stream, straining to void, urinary intermittency or hesitancy, splitting of the voiding stream, terminal dribbling. ENDOCRINOLOGIC: Denies polyuria, polydipsia, polyphagia or heat/cold intolerances. HEMATOLOGIC: Denies thrombophilia/previous clots, or coagulopathy/bleeding diso rders. ONCOLOGIC: Denies personal history of malignancy. DERMATOLOGIC: progressive swelling of the leg with redness and pain PSYCHIATRIC: Denies any suicidal or homicidal ideation. Denies hallucinations. PAST MEDICAL HISTORY: Type 2 diabetes mellitus, alcoholic liver cirrhosis, chronic kidney disease stage, history of ascites, history of ecchymosis secondary to underlying cirrhosis, hx of umbilical hernia PAST SURGICAL HISTORY: Reports having history of frequent paracentesis previously PAST SOCIAL HISTORY: Denies having history of active smoking or alcohol consumption, used to drink heavily and quit about five years ago, previous smoker as well, denies any illicit drug use FAMILY HISTORY: Denies pertinent family history Allergies: No known drug allergies Home medications: Patient has been taking amoxicillin clavulanic acid for outp atient antibiotic therapy, doxycycline 100 mg twice daily, furosemide 20 mg twice daily, [id number] mg at bedtime, [id number] units every day, lactulose 30 mL3 times a day, miconazole nitrate twice a day Protonix 40 mg daily, propranolol 10 mg 3 times a day, rifaximin 550 mg twice daily, semaglutide once a week, spironolactone 50 mg daily, Coded Allergies: No Known Allergies (Unverified Allergy, Unknown, 10/13/21) PHYSICAL EXAM GENERAL APPEARANCE: The patient is awake, alert, and oriented, in no acute cardiopulmonary distress. NEUROLOGICAL: Cranial nerves II-XII grossly intact. Motor is 5/5 in bilateral upper and lower extremities proximal to distal. No sensory deficits. HEENT: Face is symmetric. Pupils are equal and reactive. Extraocular movements are intact. NECK: Supple. No JVD. No thyromegaly. No submental, submandibular, pre- /postauricular, occipital or supraclavicular lymphadenopathy. CHEST: Normal chest expansion. No Telemetry. LUNGS: Absence of any rales, rhonchi or any wheezing. CARDIOVASCULAR: Regular. S1 and S2 normal. No appreciable rubs, murmurs or gallops. ABDOMEN: Soft, distended, reducible umbilical hernia noted : Deferred. No Rayo. EXTREMITIES: 2 + pitting edema noted of the bilateral lower extremities, left leg and foot noted to have significant erythema SKIN: No skin breakdown. Vital Sign (Last 24 Hours) 01/01/25 16:14 Temp 97.9 Pulse 71 Resp 18 B/P (MAP) 139/68 Pulse Ox 100 O2 Delivery Room Air* O2 Flow Rate 0 FiO2 21 LABS: Laboratory: Test 01/01/25 16:00 01/01/25 14:45 01/01/25 12:37 01/01/25 12:35 Range/Units Lactic Acid Level 2.2 0.8-2.5 mmol/L Total Bilirubin 2.3 H 0.2-1.0 mg/dL Direct Bilirubin 0.9 H 0.0-0.3 mg/dL Aspartate Amino Transf (AST/SGOT) 43 H 10-37 U/L Alanine Aminotransferase (ALT/SGPT) 41 12-78 U/L Alkaline Phosphatase 127 50-136 U/L Ammonia < 10 L 11-32 umol/L Lactate Dehydrogenase 366 H 81-234 U/L C-Reactive Protein, Quantitative 135.60 H 0.5-3.0 mg/L Total Protein 6.9 6.0-8.3 g/dL Albumin 2.0 L 3.5-5.0 g/dL Erythrocyte Sedimentation Rate 42 H 0-20 MM/HR Prothrombin Time 12.0 H 9.6-11.6 SEC Prothromb Time International Ratio 1.15 0.85-1.15 Activated Partial Thromboplast Time 31.0 26.3-35.5 SEC Procalcitonin 1.31 H 0.05-0.5 ng/mL White Blood Count 11.9 H 4.8-10.8 K/uL Red Blood Count 3.35 L 4.50-6.20 MIL/uL Hemoglobin 11.4 L 14.0-18.0 g/dL Hematocrit 34.5 L 42-54 % Mean Corpuscular Volume 103.0 H 79-99 fL Mean Corpuscular Hemoglobin 34.0 H 27.0-33.0 pg Mean Corpuscular Hemoglobin Concent 33.0 32.0-36.0 g/dL Red Cell Distribution Width 17.1 H 11.0-15.5 % Platelet Count 166 130-400 K/uL Mean Platelet Volume 10.1 7.5-10.5 fL Immature Granulocyte % (Auto) 0.4 0-1 % Neutrophils (%) (Auto) 93.7 H 40.0-77.0 % Lymphocytes (%) (Auto) 3.3 L 21.0-51.0 % Monocytes (%) (Auto) 2.3 L 3.0-13.0 % Eosinophils (%) (Auto) 0.1 0.0-8.0 % Basophils (%) (Auto) 0.2 0.0-5.0 % Neutrophils # (Auto) 11.2 H 1.8-7.7 K/uL Lymphocytes # (Auto) 0.4 L 1.0-4.8 K/uL Monocytes # (Auto) 0.3 0.1-1.0 K/uL Eosinophils # (Auto) 0.01 0.00-0.70 K/uL Basophils # (Auto) 0.02 0.00-0.20 K/uL Absolute Immature Granulocyte (auto 0.05 0-1 K/uL Nucleated Red Blood Cells 0.0 0.0-0.19 % White Cell Morphology Comment See comments Sodium Level 140 136-145 mmol/L Potassium Level 3.2 L 3.5-5.1 mmol/L Chloride Level 102 101-111 mmol/L Carbon Dioxide Level 30 21-32 mmol/L Blood Urea Nitrogen 35 H 7-18 mg/dL Creatinine 1.4 H 0.5-1.3 mg/dL Glomerular Filtration Rate Calc 54 >90 mL/min Random Glucose 169 H 70-105 mg/dL Total Calcium 8.6 8.5-10.1 mg/dL Troponin I High Sensitivity 6 4-75 ng/L Test 01/01/25 12:00 Range/Units Urine Color YELLOW YELLOW Urine Appearance CLEAR CLEAR Urine pH 5.5 5.0-8.0 Urine Specific [place] 1.012 1.001-1.031 Urine Protein NEGATIVE NEGATIVE mg/dL Urine Glucose (UA) NEGATIVE NEGATIVE mg/dL Urine Ketones NEGATIVE NEGATIVE mg/dL Urine Occult Blood NEGATIVE NEGATIVE Urine Nitrate NEGATIVE NEGATIVE Urine Bilirubin NEGATIVE NEGATIVE mg/dL Urine Urobilinogen 0.2 0.2-1.0 mg/dL Urine Leukocyte Esterase 75 H NEGATIVE [place]/uL Urine RBC 0-1 0-1 /HPF Urine WBC 2-5 H 0-1 /HPF Urine Squamous Epithelial Cells RARE 0-2 /HPF Urine Bacteria None None Seen /HPF Urine Hyaline Casts 11-25 H 0-1 /LPF /LPF Current Medications Medications (Trade) Dose Ordered Sig/Azael Route PRN Reason Start Time Stop Time Status Last Admin Dose Admin Acetaminophen (TYLenol 325MG TAB) 650 mg Q6H PRN PO MILD PAIN (1-3) 01/01/25 15:00 01/31/25 14:59 Albuterol (DUOneb) 1 udvial Q6H PRN IH SHORTNESS OF BREATH 01/01/25 15:00 01/31/25 14:59 Cefepime HCl (MAXipime 2 gm vial) 2 gm Q24H IVPB 01/01/25 14:30 01/11/25 14:29 01/01/25 15:31 2 GM Clindamycin HCl/ Dextrose 50 ml @ 100 mls/hr ONCE STAT IV 01/01/25 12:13 01/01/25 12:42 DC 01/01/25 12:57 100 MLS/HR Dextrose (D50w) 50 ml AD PRN IV HYPOGLYCEMIA PROTOCOL 01/01/25 17:00 01/31/25 16:59 Famotidine (Pepcid 20mg Tab) 20 mg Q24H PO 01/01/25 21:00 01/31/25 20:59 Furosemide (LASix 20MG TAB) 20 mg BID@09,17 PO 01/01/25 17:00 01/31/25 16:59 Glucagon (Glucagon 1mg Kit) 1 mg AD PRN IM HYPOGLYCEMIA PROTOCOL 01/01/25 17:00 01/31/25 16:59 Insulin Human Regular (humuLIN R 100 UNIT/ML 3ML) INSULIN SLIDING SCAL... ACHS SQ 01/01/25 21:00 01/31/25 20:59 Lactulose (Constulose 20gm/ 30ml Udcup) 20 gm BID PO 01/01/25 21:00 01/31/25 20:59 Ondansetron HCl (zoFRAN 4MG INJ) 4 mg Q6H PRN IVP NAUSEA/VOMITING 01/01/25 15:00 01/31/25 14:59 Pharmacy Profile Note (Pharmacy Communication) 1 each ONCE MISC 01/01/25 14:30 01/01/25 14:30 DC Spironolactone (Aldactone 25mg) 50 mg DAILY PO 01/02/25 09:00 02/01/25 08:59 Vancomycin HCl 250 ml @ 125 mls/hr Q24H IV 01/02/25 15:00 01/12/25 14:59 Vancomycin HCl (Vancomycin Protocol) 1 each AD IV 01/01/25 14:30 01/15/25 14:29 Vitamin B Complex/ Vit C/Folic Acid (Nephrovite Tablet) 1 cap DAILY PO 01/02/25 09:00 02/01/25 08:59 DIAGNOSTICS / RADIOLOGY: SERVICE 1213 REASON: LEFT LOWER CALF PAIN SWELLING ERYTHEMA. ORDERING PHYSICIAN: ARPAN BELLAMY PROCEDURE: VENOUS UNI - US VENOUS DOPPLER UNILATERAL EXAM: US for Deep Venous Thrombosis, left Lower Extremity. CLINICAL HISTORY: Leg Pain and Swelling TECHNIQUE: Real-time ultrasound scan of the veins of the left lower extremity with color Doppler flow, spectral waveform analysis and compression. COMPARISON: None provided. FINDINGS: DEEP VEINS: The common femoral, superficial femoral, and popliteal veins are echolucent and compressible. There is normal color Doppler flow throughout. The visualized calf veins appear patent. SOFT TISSUES: No popliteal fossa cyst or other abnormalities. IMPRESSION: 1. No evidence of deep venous thrombosis in the left lower extremity. /[place] DICTATED BY: NICOLE ZEPEDA MD DATE: 01/01/251506 ELECTRONICALLY SIGNED BY: NICOLE ZEPEDA MD DATE: 01/01/251506 ASSESSMENT: Progressive left lower extremity cellulitis with failure of outpatient oral antibiotics, POA Leukocytosis, POA History of underlying alcoholic liver cirrhosis, meld Na score of 14, POA Hypokalemia, POA Tense ascites, POA Upper extremity ecchymosis and purpura secondary to underlying liver cirrhosis and coagulopathy, POA History of CKD stage 3, POA Hypertension, POA Type 2 diabetes mellitus, POA Debility/frailty, POA PLAN: Patient will be admitted to medical-surgical floor under telemetry monitoring We will start patient on broad-spectrum antibiotics with IV vancomycin/cefepime, LRINEC Score currently at 1, no soft tissue gas noted on X ray of LLE Consultation with Infectious Disease will be requested We will trend lactic acid closely Avoid any IV fluids due to tense ascites and volume overload Renal function will be monitored closely while patient repeats on IV antibiotics We will have Nephrology follow this patient Consultation with IR will be requested for diagnostic and therapeutic paracentesis tomorrow Continue with home dose of Lasix 20 mg b.i.d. and spironolactone 50 mg daily Continue with scheduled dose of lactulose and rifaximin We will Monitor closely for worsening signs of hepatic decompensation and any organ failure, patient with active cellulitis with failure of outpatient antibiotic therapy, will monitor closely for signs of worsening sepsis All labs will be repeated in the morning, potassium will be repleted per protocol Home medications will be updated once available Date of service: 01/01/2025 Prognosis: Guarded Plan of care was discussed with patient bedside, Souleymane Nielsen MD Advanced Care Planning: Which of the following were discussed: Hospice care: Yes __ No _X_ Therapeutic options: Yes _X_ No __ Advance directives: Yes __X No __ Other discussions: Discussed with who?: Patient Voluntary nature of this service was explained to the patient? Yes _x_ No __ Amount of time spent: 20 minutes SOULEYMANE NIELSEN MD Jan 01, 2025 16:53
[2025-01-01] MEDS ORDERED: DEXTROSE 50%-WATER 50 ML DISP.SYRIN IV PRN (17:00)
[2025-01-01] MEDS ORDERED: GLUCAGON 1MG KIT 1 MG ML IM PRN (17:00)
--- NOTE | 2025-01-01 17:45 | NUR ---
RECEIVED FROM ER. ALERT/ORIENTED. LEFT LEG CELLULITIS NOTED, PHOTO TAKEN. LARGE EXTENDED ABDOMEN (ASCITES) NOTED WITH PROTRUDING UMBILICAL HERNIA. DECLINING TO CHANGE OUT OF STREET CLOTHES AND INTO GOWN AT THIS TIME
--- NOTE | 2025-01-01 18:10 | HMCIMG ---
EXAM: US for Deep Venous Thrombosis, right Lower Extremity. CLINICAL HISTORY: Leg Pain and Swelling TECHNIQUE: Real-time ultrasound scan of the veins of the right lower extremity with color Doppler flow, spectral waveform analysis and compression. COMPARISON: None provided. FINDINGS: DEEP VEINS: The common femoral, superficial femoral, and popliteal veins are echolucent and compressible. There is normal color Doppler flow throughout. The visualized calf veins appear patent. SOFT TISSUES: No popliteal fossa cyst or other abnormalities. IMPRESSION: 1. No evidence of deep venous thrombosis in the right lower extremity. /[place]
--- NOTE | 2025-01-01 19:51 | NUR ---
INFORMED CONSENT RECEIVED FOR PARACENTESIS BY IR TOMORROW. PT/INR SCHEDULED FOR AM. ORDER FAXED TO [facility] TO SCHEDULE PROCEDURE
[2025-01-01 20:25] LABS: CREATININE 1.4 mg/dL (0.5-1.3); GLOMERULAR FILTR. RATE CALC 54.0 mL/min (>90); GLUCOSE,RANDOM 217.0 mg/dL (70-105); SODIUM SERUM 141.0 mmol/L (136-145); UREA NITROGEN, BLOOD 34.0 mg/dL (7-18)
[2025-01-01] MEDS ORDERED: LACTULOSE 20 GM/30 ML UDCUP PO SCH (21:00)
[2025-01-01] MEDS: FAMOTIDINE 20MG TAB PO SCH (21:04)
[2025-01-01] MEDS: LACTULOSE 20 GM/30 ML UDCUP PO SCH (21:04)
[2025-01-01] MEDS: RIFAXIMIN 550 MG TABLET PO SCH (21:04)
[2025-01-01] MEDS ORDERED: ALBUMIN HUMAN 25% 100 ML IV SCH (22:00)
[2025-01-01] MEDS: PoTASSium chloRIDE 20MEQ ER 20 MEQ ERTAB PO ONE (22:58)
[2025-01-01] MEDS: ALBUMIN HUMAN 25% 100 ML IV SCH (23:58)
[2025-01-02] VITALS (17 sets, daily range): BP systolic 107–140; BP diastolic 38–91; PULSE 71–95; RESP 15–18; TEMP 97.9–99.1; O2SAT 99–100
[2025-01-02 05:26] LABS: IMMATURE GRANULOCYTE ABSOLUTE 0.07 K/uL (0-1); NUCLEATED RED BLOOD CELLS 0.0 % (0.0-0.19); PLATELET COUNT (AUTO) 131 K/uL (130-400); RED BLOOD CELL COUNT(AUTO) 2.88 MIL/uL (4.50-6.20); RED CELL DISTRIBUTION WIDTH 17.1 % (11.0-15.5); WHITE BLOOD COUNT (AUTO) 10.7 K/uL (4.8-10.8)
[2025-01-02 05:38] LABS: INR 1.23 (0.85-1.15)
[2025-01-02 05:51] LABS: ASPARTATE AMINOTRANSFERASE 19.0 U/L (10-37); CREATININE 1.2 mg/dL (0.5-1.3); GLOMERULAR FILTR. RATE CALC 65.0 mL/min (>90); GLUCOSE,RANDOM 159.0 mg/dL (70-105); SODIUM SERUM 143.0 mmol/L (136-145); TOTAL PROTEIN, SERUM 6.6 g/dL (6.0-8.3); UREA NITROGEN, BLOOD 29.0 mg/dL (7-18)
--- NOTE | 2025-01-02 07:16 | HMCIMG ---
EXAMINATION: ULTRASOUND OF THE ABDOMEN (LIMITED). CLINICAL HISTORY: Ascites survey. COMPARISON: Ascites survey ultrasound dated 07/05/2024. TECHNIQUE: Real-time grayscale ultrasound images of the abdomen. FINDINGS: There is moderate free fluid in all the four quadrants. IMPRESSION: Moderate ascites. /[place]
--- NOTE | 2025-01-02 08:46 | NUR ---
CALL LIGHT ANSWERED CALL LIGHT. BED ALARM ON. NOTED PT IN FLOOR KNEELING DOWN. PT STATES HIS URINAL FELL AND HE GOT UP TO PICK IT UP. PT DENIES FALL. BP: 148/60. A&OX4. NON LABORED BREATHING. DENIES PAIN. ASSISTED PT BACK TO BED. CALL LIGHT TO REACH. BED LOWERED AND LOCKED. BED ALARM ON.
--- NOTE | 2025-01-02 11:00 | NUR ---
post op pt arrived via wheelchair. a&ox4. denies pain. dressing dry and intact.
--- NOTE | 2025-01-02 11:05 | NUR ---
ULTRASOUND GUIDED PARACENTESIS PROCEDURE PERFORMED BY DR. LAYTON SOLORZANO. PUNCTURE SITE RLQ AND PATIENT TOLERATED PROCEDURE WELL. TOTAL REMOVED 4.5 LITERS OF CLOUDY ASCITES FLUID. END OF PROCEDURE AT 1050. CATHETER REMOVED AND DRESSING APPLIED- NO BLEEDING NOTED. REPORT GIVEN TO MINERVA BEE LVN AND PATIENT TRANSPORTED BACK TO ROOM 317 VIA WHEELCHAIR. PATIENT IS AWAKE AND ALERT WITH NO C/O PAIN. SPECIMEN SENT TO LAB.
[2025-01-02] MEDS ORDERED: ALBUMIN HUMAN 25% 100 ML IV ONE (11:30)
[2025-01-02] MEDS: SPIRONOLACTONE 25 MG TAB PO SCH (12:03)
[2025-01-02] MEDS: Vitamin B Complex/Vit C/Folic Acid PO SCH (12:03)
--- NOTE | 2025-01-02 12:53 | HMCIMG ---
US ABDOMINAL PARACENTESIS IR REASON: diagnostic and therapeutic parcentesis, hx of alcoholic liver cirrhosis TECHNIQUE: Paracentesis was performed with ultrasound guidance. The puncture site was selected in the Right lower quadrant and overlying skin prepped and draped in a sterile fashion. 1% Xylocaine infiltration was performed. Catheter was placed in the fluid using trocar technique. 4.5 L were removed. Fluid sample was submitted for laboratory evaluation. The patient showed no evidence of complication during the procedure. Patient tolerated procedure well. IMPRESSION: 1. Ultrasound-guided paracentesis.
[2025-01-02 13:36] LABS: ALBUMIN,BODY FLUID < 0.6 g/dL
--- NOTE | 2025-01-02 13:46 | CONS ---
INFECTIOUS DISEASE CONSULTATION NOTE Date of Service: Jan 02, 2025 Reason for Consultation: Progressive Left leg cellulitis Requesting Physician: Madisyn Nielsen HISTORY OF PRESENT ILLNESS: A 69 year male with past medical history of Type 2 Diabetes, CKD stage 3, Alcoholic liver cirrhosis requiring paracentesis presented to ED for worsening left leg swelling, redness, and pain. Patient had these symptoms for about one week and have progressively worsened. Patient had similar redness and swelling in the right lower extremity which is much improved now. Patient denies fevers and chills. Patient used Augmentin and Doxycycline from his PCP but states his symptoms have not improved. Patient reports working in his yard a couple of weeks ago but doesn't recall any trauma and insect bites. Patient had tense ascites and gets outpatient paracentesis every 6 weeks. Patient also has umbilical hernia and Inguinal-scrotal hernia. REVIEW OF SYSTEMS CONSTITUTIONAL: Denies fever, chills, or fatigue. HEAD/FACE: No signs of trauma. EENT: Denies eye pain, blurred vision, double vision, or light sensitivity. RESPIRATORY: Denies shortness of breath, cough, wheezing CARDIOVASCULAR: Denies chest pain, palpitation, syncope GASTROINTESTINAL/ABDOMINAL: Denies abdominal pain, constipation, diarrhea, nausea or vomiting. Abdominal distension with periumbilical swelling. GENITOURINARY: Denies dysuria or hematuria. MUSCULOSKELETAL: Denies joint pain, tenderness, or trauma. INTEGUMENTARY: Redness and swelling of left leg. Scaling and sloughing of bilateral toe nails. Multiple bruises on bilateral upper extremities NEUROLOGICAL/PSYCH: Denies anxiety, depression, heat or cold intolerance. PAST MEDICAL HISTORY: [ ] Type 2 diabetes mellitus, alcoholic liver cirrhosis, chronic kidney disease stage, history of ascites, history of ecchymosis secondary to underlying cirrho sis, hx of umbilical hernia PAST SURGICAL HISTORY: [ ] Frequent paracentesis previously PAST SOCIAL HISTORY: [ ] Denies having history of active smoking or alcohol consumption, used to drink heavily and quit about five years ago, previous smoker as well, denies any illicit drug use FAMILY HISTORY: [ ] Diabetes mellitus in several family members. Denies other pertinent family history. Coded Allergies: No Known Allergies (Unverified Allergy, Unknown, 10/13/21) PHYSICAL EXAM EYES: Anicteric. Pupils equal and reactive. HENT: No oral thrush seen, moist Oral mucosa NECK: Supple, no JVD or thyromegaly. LUNGS: Good air entry. No rales, no rhonchi. CARDIOVASCULAR: S1, S2 regular. No murmur heard. ABDOMEN: Tense abdominal distension. Reducible umbilical hernia noted. Non tender, bowel sounds present CENTRAL NERVOUS SYSTEM: Awake, alert, oriented x 3. No focal deficits. SKIN: Redness and swelling of left leg. Improving right leg cellulitis. Multiple non blanching ecchymoses and purpura in bilateral upper extremities. LYMPHATICS: No peripheral lymphadenopathy MUSCULOSKELETAL: No joint swelling. EXTREMITIES: No cyanosis or clubbing. 2+ edema of bilateral lower extremities, with significant erythema and tenderness to left leg. Onychomycosis noted in bilateral toe nails. BACK: No deformity, no pressure ulcer. GENITOURINARY: Inguinoscrotal swelling, non reducible. No dysuria or hematuria Vital Sign (Last 24 Hours) 01/01/25 01/02/25 20:06 06:45 O2 Flow Rate 0 FiO2 21 Intake & Output (last 24hrs) 0 01/01/25 01/01/25 01/02/25 15:00 23:00 07:00 Intake Total 400.0 ml Output Total 90 ml Balance 400.0 ml -90 ml LABS: Laboratory: Test 01/02/25 11:41 01/02/25 10:00 01/02/25 05:20 01/01/25 20:00 Range/Units Whole Blood Glucose 185 H 70-110 MG/DL Body Fluid Albumin < 0.6 g/dL White Blood Count 10.7 4.8-10.8 K/uL Red Blood Count 2.88 L 4.50-6.20 MIL/uL Hemoglobin 9.8 L 14.0-18.0 g/dL Hematocrit 29.7 L 42-54 % Mean Corpuscular Volume 103.1 H 79-99 fL Mean Corpuscular Hemoglobin 34.0 H 27.0-33.0 pg Mean Corpuscular Hemoglobin Concent 33.0 32.0-36.0 g/dL Red Cell Distribution Width 17.1 H 11.0-15.5 % Platelet Count 131 130-400 K/uL Mean Platelet Volume 9.2 7.5-10.5 fL Immature Granulocyte % (Auto) 0.7 0-1 % Neutrophils (%) (Auto) 87.7 H 40.0-77.0 % Lymphocytes (%) (Auto) 5.0 L 21.0-51.0 % Monocytes (%) (Auto) 5.8 3.0-13.0 % Eosinophils (%) (Auto) 0.6 0.0-8.0 % Basophils (%) (Auto) 0.2 0.0-5.0 % Neutrophils # (Auto) 9.4 H 1.8-7.7 K/uL Lymphocytes # (Auto) 0.5 L 1.0-4.8 K/uL Monocytes # (Auto) 0.6 0.1-1.0 K/uL Eosinophils # (Auto) 0.06 0.00-0.70 K/uL Basophils # (Auto) 0.02 0.00-0.20 K/uL Absolute Immature Granulocyte (auto 0.07 0-1 K/uL Nucleated Red Blood Cells 0.0 0.0-0.19 % Prothrombin Time 12.8 H 9.6-11.6 SEC Prothromb Time International Ratio 1.23 H 0.85-1.15 Activated Partial Thromboplast Time 31.6 26.3-35.5 SEC Sodium Level 143 136-145 mmol/L Potassium Level 3.7 3.5-5.1 mmol/L Chloride Level 106 101-111 mmol/L Carbon Dioxide Level 29 21-32 mmol/L Blood Urea Nitrogen 29 H 7-18 mg/dL Creatinine 1.2 0.5-1.3 mg/dL Glomerular Filtration Rate Calc 65 >90 mL/min Random Glucose 159 H 70-105 mg/dL Lactic Acid Level 1.4 0.8-2.5 mmol/L Total Calcium 8.6 8.5-10.1 mg/dL Total Bilirubin 2.1 H 0.2-1.0 mg/dL Aspartate Amino Transf (AST/SGOT) 19 10-37 U/L Alanine Aminotransferase (ALT/SGPT) 33 12-78 U/L Alkaline Phosphatase 112 50-136 U/L Total Protein 6.6 6.0-8.3 g/dL Albumin 2.2 L 3.5-5.0 g/dL Total Creatine Kinase 33 21-232 U/L Test 01/01/25 16:00 01/01/25 14:45 01/01/25 12:37 01/01/25 12:35 Range/Units Thyroid Stimulating Hormone (TSH) 0.25 #L 0.36-3.74 uIU/mL Hemoglobin A1c 7.2 H 4.0-6.0 % Estimated Average Glucose (eAG) 160 H 70-126 mg/dL Direct Bilirubin 0.9 H 0.0-0.3 mg/dL Ammonia < 10 L 11-32 umol/L Lactate Dehydrogenase 366 H 81-234 U/L C-Reactive Protein, Quantitative 135.60 H 0.5-3.0 mg/L Erythrocyte Sedimentation Rate 42 H 0-20 MM/HR Procalcitonin 1.31 H 0.05-0.5 ng/mL White Cell Morphology Comment See comments Troponin I High Sensitivity 6 4-75 ng/L Test 01/01/25 12:00 Range/Units Urine Color YELLOW YELLOW Urine Appearance CLEAR CLEAR Urine pH 5.5 5.0-8.0 Urine Specific [place] 1.012 1.001-1.031 Urine Protein NEGATIVE NEGATIVE mg/dL Urine Glucose (UA) NEGATIVE NEGATIVE mg/dL Urine Ketones NEGATIVE NEGATIVE mg/dL Urine Occult Blood NEGATIVE NEGATIVE Urine Nitrate NEGATIVE NEGATIVE Urine Bilirubin NEGATIVE NEGATIVE mg/dL Urine Urobilinogen 0.2 0.2-1.0 mg/dL Urine Leukocyte Esterase 75 H NEGATIVE [place]/uL Urine RBC 0-1 0-1 /HPF Urine WBC 2-5 H 0-1 /HPF Urine Squamous Epithelial Cells RARE 0-2 /HPF Urine Bacteria None None Seen /HPF Urine Hyaline Casts 11-25 H 0-1 /LPF /LPF DIAGNOSTICS / RADIOLOGY: [ ] PATIENT: EDWAR LOPEZ JR MR#: [id number] : 1955 SEX: M AGE: 69 LOCATION: [facility] ORDER 16 STATUS: [facility] REPORT#: [id number] SERVICE 1213 REASON: LEFT LOWER CALF PAIN SWELLING ERYTHEMA. ORDERING PHYSICIAN: ARPAN BELLAMY PROCEDURE: VENOUS UNI - US VENOUS DOPPLER UNILATERAL EXAM: US for Deep Venous Thrombosis, left Lower Extremity. CLINICAL HISTORY: Leg Pain and Swelling TECHNIQUE: Real-time ultrasound scan of the veins of the left lower extremity with color Doppler flow, spectral waveform analysis and compression. COMPARISON: None provided. FINDINGS: DEEP VEINS: The common femoral, superficial femoral, and popliteal veins are echolucent and compressible. There is normal color Doppler flow throughout. The visualized calf veins appear patent. SOFT TISSUES: No popliteal fossa cyst or other abnormalities. IMPRESSION: 1. No evidence of deep venous thrombosis in the left lower extremity. /[place] DICTATED BY: NICOLE ZEPEDA MD DATE: 01/01/251506 ELECTRONICALLY SIGNED BY: NICOLE ZEPEDA MD DATE: 01/01/251506 PATIENT: EDWAR LOPEZ JR MR#: [id number] : 1955 SEX: M AGE: 69 [facility]ATION[facility] ORDER 32 STATUS: ADM IN REPORT#: [id number] SERVICE 29 REASON: non reoslving cellulitis of the LLE, hx of cirrhosis ORDERING PHYSICIAN: MADISYN NIELSEN MD PROCEDURE: TIBFIB LT - TIBIA/FIBULA 2VWS LT EXAM: CR right Tibia and fibula, 2 View. CLINICAL HISTORY: non reoslving cellulitis of the LLE, hx of cirrhosis COMPARISON: None provided. FINDINGS: BONES: No acute fracture or aggressive appearing osseous lesion. JOINTS: No dislocation. The joint spaces are normal. SOFT TISSUES: Diffuse soft tissue swelling IMPRESSION: 1. No acute osseous injury. 2. Diffuse soft tissue swelling. /[place] DICTATED BY: REBECCA WYNN MD DATE: 01/01/251650 ELECTRONICALLY SIGNED BY: REBECCA WYNN MD DATE: 01/01/251650 PATIENT: DEWAR LOPEZ JR MR#: [id number] : 1955 SEX: M AGE: 69 LOCATION: [facility] ORDER 34 [facility]US: [facility] REPORT#: [id number] SERVICE 32 REASON: assess if patient has large volume ascites for paracentesis ORDERING PHYSICIAN: MADISYN NIELSEN MD PROCEDURE: ABD WALL - US ABD LIMITED/ABD WALL EXAMINATION: ULTRASOUND OF THE ABDOMEN (LIMITED). CLINICAL HISTORY: Ascites survey. COMPARISON: Ascites survey ultrasound dated 07/05/2024. TECHNIQUE: Real-time grayscale ultrasound images of the abdomen. FINDINGS: There is moderate free fluid in all the four quadrants. IMPRESSION: Moderate ascites. /[place] DICTATED BY: JEREMY RODRIGUEZ MD DATE: 01/02/25814 ELECTRONICALLY SIGNED BY: JEREMY RODRIGUEZ MD DATE: 01/02/25814 PATIENT: EDWAR LOPEZ JR MR#: [id number] : 1955 SEX: M AGE: 69 LOCATION: [facility] ORDER 41 STATUS: ADM IN REPORT#: [id number] SERVICE 40 REASON: RLE EDEMA, R/O ANY DVT ORDERING PHYSICIAN: MADISYN NIELSEN MD PROCEDURE: VENOUS UNI - US VENOUS DOPPLER UNILATERAL EXAM: US for Deep Venous Thrombosis, right Lower Extremity. CLINICAL HISTORY: Leg Pain and Swelling TECHNIQUE: Real-time ultrasound scan of the veins of the right lower extremity with color Doppler flow, spectral waveform analysis and compression. COMPARISON: None provided. FINDINGS: DEEP VEINS: The common femoral, superficial femoral, and popliteal veins are echolucent and compressible. There is normal color Doppler flow throughout. The visualized calf veins appear patent. SOFT TISSUES: No popliteal fossa cyst or other abnormalities. IMPRESSION: 1. No evidence of deep venous thrombosis in the right lower extremity. /[place] DICTATED BY: REBECCA WYNN MD DATE: 01/01/251908 ELECTRONICALLY SIGNED BY: REBECCA WYNN MD DATE: 01/01/251908 PATIENT: EDWAR LOPEZ JR MR#: [id number] : 1955 SEX: M AGE: 69 LOCATION: [facility] ORDER 99 STATUS: ADM IN REPORT#: [id number] SERVICE 08 REASON: diagnostic and therapeutic parcentesis, hx of alcoholic liver cirrhosis ORDERING PHYSICIAN: MADISYN NIELSEN MD PROCEDURE: PARA ABD - US ABDOMINAL PARACENTESIS IR US ABDOMINAL PARACENTESIS IR REASON: diagnostic and therapeutic parcentesis, hx of alcoholic liver cirrhosis TECHNIQUE: Paracentesis was performed with ultrasound guidance. The puncture site was selected in the Right lower quadrant and overlying skin prepped and draped in a sterile fashion. 1% Xylocaine infiltration was performed. Catheter was placed in the fluid using trocar technique. 4.5 L were removed. Fluid sample was submitted for laboratory evaluation. The patient showed no evidence of complication during the procedure. Patient tolerated procedure well. IMPRESSION: 1. Ultrasound-guided paracentesis. DICTATED BY: LAYTON SOLORZANO MD DATE: 01/02/251249 ELECTRONICALLY SIGNED BY: LAYTON SOLORZANO MD DATE: 01/02/251252 ASSESSMENT: [ ] Progressive left lower extremity cellulitis with failure of outpatient oral antibiotics, POA Leukocytosis, resolving Onychomycosis of bilateral toe nails, POA Alcoholic liver cirrhosis, requiring paracentesis POA Tense ascites, POA Reducible umbilical hernia, POA Inguinoscrotal hernia, POA Upper extremity ecchymosis and purpura secondary to underlying liver cirrhosis and coagulopathy, POA History of CKD stage 3, POA Hypertension, POA Type 2 diabetes mellitus, POA Debility/frailty, POA PLAN: - Continue Vancomycin and Cefepime - Start fluconazole 200 mg PO BID - Continue Rifaximin - Continue Lasix - Continue Albumin, Lactulose, Aldactone - Continue Insulin Lantus and Humulin - Continue PRN pain medication - Continue GI prophylaxis with Famotidine This case was reviewed and discussed with my supervising physician Dr. Wesley and the above assessment and plan was formulated and agreed upon. AMANDA JOYNER MD Jan 02, 2025 13:46
[2025-01-02 14:02] LABS: BODY FLUID WBC 16324 /cu. mm.
[2025-01-02 14:03] LABS: APPEARANCE BODY FLUID TURBID (CLEAR); BODY FLUID RBC 235 /cu. mm.; COLOR,BODY FLUID LT YELLOW (LT YELLOW); SPECIMENTYPE,BODY FLUID ASCITES; TOTAL VOLUME,BODY FLUID 4500 mL
[2025-01-02 14:14] LABS: BF LYMPHOCYTE 4 %; BF MACROPHAGE 4; BF MONOCYTE 6 %; BF NEUTROPHIL 86.0 %; BF TOTAL CELLS COUNTED 100
[2025-01-02] MEDS: VANCOMYCIN 1.25 GM/250 ML BAG 250 ML IV SCH (15:19)
--- NOTE | 2025-01-02 17:41 | CONS ---
INFECTIOUS DISEASE CONSULTATION NOTE Date of Service: Jan 02, 2025 Reason for Consultation: Left lower extremity cellulitis. Requesting Physician: Dr. Nielsen HISTORY OF PRESENT ILLNESS: This is a 69-year-old male patient with medical history of diabetes, hypertension, dyslipidemia and alcoholic liver cirrhosis who presented to the emergency room for evaluation of swelling, redness and pain to the left lower extremity which did not resolved with oral antibiotics. Reported that about 2 to 3 weeks ago he was doing yard work where the grass and weed was very high and he sprained his right ankle for which she was Hospitalized. He does not recall being bitten. A left lower extremity tibia-fibula x-ray was negative for fracture and a venous Doppler was negative for DVT. On examination the left lower extremity is very tender on palpation, swollen and with erythema. The right lower extremity has minimal redness. The WBC on admission was 11.9 but no reports of recent fever. Patient has been started on vancomycin and cefepime. We will add fluconazole 200 mg p.o. daily for onychomycosis to toe nails on bilateral feet. On admission patient was found with a large abdomen and an ultrasound was obtained which showed moderate ascites. Patient underwent a p aracentesis today with 4.5 L removed. We will follow up on the culture results. REVIEW OF SYSTEMS CONSTITUTIONAL: Denies fever, chills, or fatigue. HEAD/FACE: No signs of trauma. EENT: Denies eye pain, blurred vision, double vision, or light sensitivity. RESPIRATORY: Denies shortness of breath, cough, wheezing CARDIOVASCULAR: Denies chest pain, palpitation, syncope GASTROINTESTINAL/ABDOMINAL: Denies abdominal pain, constipation, diarrhea, nausea or vomiting. Abdominal distension. GENITOURINARY: Denies dysuria or hematuria. MUSCULOSKELETAL: Denies joint pain, tenderness, or trauma. INTEGUMENTARY: Pain, redness and swelling to the left leg. NEUROLOGICAL/PSYCH: Denies anxiety, depression, heat or cold intolerance. PAST MEDICAL HISTORY: Diabetes mellitus. Dyslipidemia. Hypertension. Alcoholic liver cirrhosis. Hearing impaired on the left ear. Ascites. PAST SURGICAL HISTORY: Paracentesis. PAST SOCIAL HISTORY: Patient reported he quit smoking and drinking over four years ago. Denied the use of any illicit drug. FAMILY HISTORY: Parents and siblings positive for diabetes mellitus. Coded Allergies: No Known Allergies (Unverified Allergy, Unknown, 10/13/21) PHYSICAL EXAM EYES: Anicteric. Pupils equal and reactive. HENT: No oral thrush seen, moist Oral mucosa. NECK: Supple, no JVD or thyromegaly. LUNGS: Good air entry. No rales, no rhonchi. CARDIOVASCULAR: S1, S2 regular. No murmur heard. ABDOMEN: Large abdomen. Reducible umbilical hernia noted. CENTRAL NERVOUS SYSTEM: Awake, alert, oriented x 3. No focal deficits. SKIN: Redness and swelling of left lower extremity. Erythema to the right lower extremity. LYMPHATICS: No peripheral lymphadenopathy MUSCULOSKELETAL: No joint swelling. EXTREMITIES: No cyanosis or clubbing. 2+ edema, tenderness and erythema of left lower extremity. Onychomycosis to toe nails on bilateral feet. BACK: No deformity, no pressure ulcer. GENITOURINARY: Inguinoscrotal swelling, non reducible. No dysuria or hematuria. Vital Sign (Last 24 Hours) 01/01/25 01/02/25 20:06 06:45 O2 Flow Rate 0 FiO2 21 Intake & Output (last 24hrs) 01/01/25 01/01/25 01/02/25 15:00 23:00 07:00 Intake Total 400.0 ml Output Total 90 ml Balance 400.0 ml -90 ml LABS: Laboratory: Test 01/02/25 15:18 01/02/25 10:00 01/02/25 05:20 01/01/25 20:00 Range/Units Whole Blood Glucose 198 H 70-110 MG/DL Body Fluid Source ASCITES Body Fluid Volume 4500 mL Body Fluid Color LT YELLOW LT YELLOW Body Fluid Supernatant Appearance TURBID H CLEAR Body Fluid WBC 69996 /cu. mm. Body Fluid RBC 235 /cu. mm. Body Fluid Neutrophils 86.0 % Body Fluid Lymphocytes 4 % Body Fluid Monocytes % 6 % Body Fluid Macrophages (%) 4 Body Fluid Albumin < 0.6 g/dL White Blood Count 10.7 4.8-10.8 K/uL Red Blood Count 2.88 L 4.50-6.20 MIL/uL Hemoglobin 9.8 L 14.0-18.0 g/dL Hematocrit 29.7 L 42-54 % Mean Corpuscular Volume 103.1 H 79-99 fL Mean Corpuscular Hemoglobin 34.0 H 27.0-33.0 pg Mean Corpuscular Hemoglobin Concent 33.0 32.0-36.0 g/dL Red Cell Distribution Width 17.1 H 11.0-15.5 % Platelet Count 131 130-400 K/uL Mean Platelet Volume 9.2 7.5-10.5 fL Immature Granulocyte % (Auto) 0.7 0-1 % Neutrophils (%) (Auto) 87.7 H 40.0-77.0 % Lymphocytes (%) (Auto) 5.0 L 21.0-51.0 % Monocytes (%) (Auto) 5.8 3.0-13.0 % Eosinophils (%) (Auto) 0.6 0.0-8.0 % Basophils (%) (Auto) 0.2 0.0-5.0 % Neutrophils # (Auto) 9.4 H 1.8-7.7 K/uL Lymphocytes # (Auto) 0.5 L 1.0-4.8 K/uL Monocytes # (Auto) 0.6 0.1-1.0 K/uL Eosinophils # (Auto) 0.06 0.00-0.70 K/uL Basophils # (Auto) 0.02 0.00-0.20 K/uL Absolute Immature Granulocyte (auto 0.07 0-1 K/uL Nucleated Red Blood Cells 0.0 0.0-0.19 % Prothrombin Time 12.8 H 9.6-11.6 SEC Prothromb Time International Ratio 1.23 H 0.85-1.15 Activated Partial Thromboplast Time 31.6 26.3-35.5 SEC Sodium Level 143 136-145 mmol/L Potassium Level 3.7 3.5-5.1 mmol/L Chloride Level 106 101-111 mmol/L Carbon Dioxide Level 29 21-32 mmol/L Blood Urea Nitrogen 29 H 7-18 mg/dL Creatinine 1.2 0.5-1.3 mg/dL Glomerular Filtration Rate Calc 65 >90 mL/min Random Glucose 159 H 70-105 mg/dL Lactic Acid Level 1.4 0.8-2.5 mmol/L Total Calcium 8.6 8.5-10.1 mg/dL Total Bilirubin 2.1 H 0.2-1.0 mg/dL Aspartate Amino Transf (AST/SGOT) 19 10-37 U/L Alanine Aminotransferase (ALT/SGPT) 33 12-78 U/L Alkaline Phosphatase 112 50-136 U/L Total Protein 6.6 6.0-8.3 g/dL Albumin 2.2 L 3.5-5.0 g/dL Total Creatine Kinase 33 21-232 U/L Test 01/01/25 16:00 01/01/25 14:45 01/01/25 12:37 01/01/25 12:35 Range/Units Thyroid Stimulating Hormone (TSH) 0.25 #L 0.36-3.74 uIU/mL Hemoglobin A1c 7.2 H 4.0-6.0 % Estimated Average Glucose (eAG) 160 H 70-126 mg/dL Direct Bilirubin 0.9 H 0.0-0.3 mg/dL Ammonia < 10 L 11-32 umol/L Lactate Dehydrogenase 366 H 81-234 U/L C-Reactive Protein, Quantitative 135.60 H 0.5-3.0 mg/L Erythrocyte Sedimentation Rate 42 H 0-20 MM/HR Procalcitonin 1.31 H 0.05-0.5 ng/mL White Cell Morphology Comment See comments Troponin I High Sensitivity 6 4-75 ng/L Test 01/01/25 12:00 Range/Units Urine Color YELLOW YELLOW Urine Appearance CLEAR CLEAR Urine pH 5.5 5.0-8.0 Urine Specific [place] 1.012 1.001-1.031 Urine Protein NEGATIVE NEGATIVE mg/dL Urine Glucose (UA) NEGATIVE NEGATIVE mg/dL Urine Ketones NEGATIVE NEGATIVE mg/dL Urine Occult Blood NEGATIVE NEGATIVE Urine Nitrate NEGATIVE NEGATIVE Urine Bilirubin NEGATIVE NEGATIVE mg/dL Urine Urobilinogen 0.2 0.2-1.0 mg/dL Urine Leukocyte Esterase 75 H NEGATIVE [place]/uL Urine RBC 0-1 0-1 /HPF Urine WBC 2-5 H 0-1 /HPF Urine Squamous Epithelial Cells RARE 0-2 /HPF Urine Bacteria None None Seen /HPF Urine Hyaline Casts 11-25 H 0-1 /LPF /LPF DIAGNOSTICS / RADIOLOGY: PATIENT: EDWAR LOPEZ JR MR#: [id number] : 1955 SEX: M AGE: 69 LOCATION: [facility] ORDER 41 STATUS: ADM IN REPORT#: [id number] SERVICE 40 REASON: RLE EDEMA, R/O ANY DVT ORDERING PHYSICIAN: MADISYN NIELSEN MD PROCEDURE: VENOUS UNI - US VENOUS DOPPLER UNILATERAL EXAM: US for Deep Venous Thrombosis, right Lower Extremity. CLINICAL HISTORY: Leg Pain and Swelling TECHNIQUE: Real-time ultrasound scan of the veins of the right lower extremity with color Doppler flow, spectral waveform analysis and compression. COMPARISON: None provided. FINDINGS: DEEP VEINS: The common femoral, superficial femoral, and popliteal veins are echolucent and compressible. There is normal color Doppler flow throughout. The visualized calf veins appear patent. SOFT TISSUES: No popliteal fossa cyst or other abnormalities. IMPRESSION: 1. No evidence of deep venous thrombosis in the right lower extremity. /[place] DICTATED BY: REBECCA WYNN MD DATE: 01/01/251908 ASSESSMENT: Bilateral lower extremities cellulitis. Leukocytosis, resolving. Onychomycosis to toe nails on bilateral feet. Alcoholic liver cirrhosis. Ascites status post paracentesis with 4.5 L removed. Inguinoscrotal hernia, POA Acute on chronic renal failure. Diabetes mellitus. PLAN:S Start fluconazole 200 mg po daily. Continue Vancomycin Continue Cefepime Continue GI prophylaxis. Continue pain management. Continue diuretics diuretics. Continue antidiabetics. Continue Rifaximin Thank you for allowing ID to participate in the care of this patient. This case was reviewed and discussed with my supervising physician Dr. Milton and the above assessment and plan was formulated and agreed upon. ATTESTATION BY PHYSICIAN I have seen and examined the patient. I reviewed the documentation, medical deci ita making, and treatment plan as noted by the mid-level provider above. I agree with the findings and plan of care. REINIER MILTON MD, [facility] Jan 02, 2025 17:41
--- NOTE | 2025-01-02 21:55 | CONS ---
REFERRING PHYSICIAN: Dr. Nielsen REASON FOR CONSULTATION: Renal failure. HISTORY OF PRESENT ILLNESS: A 69-year-old male with a history of known cirrhosis. The patient did have paracentesis as an outpatient. The patient initially presented with pain to the left lower extremity. The patient was noted to have significant cellulitis and started on IV antibiotics. The patient's laboratory values revealed significant renal dysfunction with an elevated BUN and creatinine and he is being seen in consultation for all of the above. PAST MEDICAL HISTORY: Cirrhosis, diabetes mellitus. PAST SURGICAL HISTORY: Paracentesis. SOCIAL HISTORY: He has a previous history of alcohol use. No tobacco use. FAMILY HISTORY: There is no renal disease in the family. ALLERGIES: There are no allergies. MEDICATIONS: All noted. REVIEW OF SYSTEMS: GENERAL: He is feeling weak and tired. HEENT: No change in vision. No change in hearing. CARDIOVASCULAR: No current chest pains or palpitations. PULMONARY: He has chronic shortness of breath. GASTROINTESTINAL: As described above. MUSCULOSKELETAL: As described above. NEUROLOGIC: No history of seizure or focal deficit. PSYCHIATRIC: No history of hallucinations or psychosis. ENDOCRINE: Diabetes mellitus. No history of thyroid disease. PHYSICAL EXAMINATION: VITAL SIGNS: Blood pressure is 123/81, pulse is 98, he is afebrile. GENERAL: Chronically old male, elderly, lying in bed on the medical floor. HEENT: Head is atraumatic. Pupils are equal, round and reactive to light. Oropharynx is without exudate. Nares clear. NECK: There is no JVP. There is no thyromegaly. No mass. CARDIOVASCULAR: Regular. There is no S3 or S4 gallop. LUNGS: Coarse with equal thoracic movement. ABDOMEN: Soft, nondistended, nontender. EXTREMITIES: Reveal no clubbing, no cyanosis. NEUROLOGICAL: He is awake. He is alert. He is oriented. SKIN: The patient has cellulitis of the left lower extremity. LABORATORY DATA: Sodium 143, potassium 3.7, BUN 29, creatinine 1.2, bilirubin 2, hemoglobin 9.8, hematocrit 29. Urinalysis is noted. IMPRESSION: [id number] renal failure. Cellulitis. Cirrhosis. Anemia. PLAN: The patient has been started on the broad-spectrum IV antibiotics. Culture results are pending. The patient does have significant ascites and is scheduled for paracentesis later today. The patient's creatinine is noted. We will continue to monitor his chemistries closely. Blood pressure is under adequate control. The patient does have significant anemia. We will check iron levels for completeness and will follow the patient closely. He remains on the diuretics for volume overload. All labs will be repeated in the morning. The patient with multiple questions, all of which were answered. TID: [id number] RECEIPT: [id number]
--- NOTE | 2025-01-02 22:44 | HMCSR ---
APPROVED REPORT EXAM: Two-dimensional and M-mode echocardiogram with Doppler and color Doppler. INDICATION ICD: Rule out heart failure 2D Dimensions RVDd4.1 cmLVEF(%)59.4 (>50%)LVED Vol(simp.)124.0 mL IVSd0.9 (0.7-1.1cm)FS(%)31 %LVES Vol(simp.)41.0 mL LVDd3.5 (3.8-5.6cm)LA (2D)4.3 (1.6-4.0cm)LVEF(%, simp.)67 % PWd1.0 (0.7-1.1cm)Ao Root(2D)2.9 (2.0-3.7cm)LA ESV INDEX (BP)31.54 mL/m2 LVDs2.4 (2.5-4.0cm)LVOT diam2.5 (1.8-2.4cm) IVC diam1.6 cm Deformation Strain Apical 4-23.7 % Apical 2-21.2 % Apical 3-23.4 % Global Strain-22.8 % M-Mode Dimensions EPSS0.6 cm LA (MM)3.1 (1.6-4.0cm) Ao Root(MM)2.9 (2.0-3.7cm) Aortic Valve AoV Vmax1.5 m/Mateo Peak GR8.9 mmHgLVOT Vmax1.2 m/s AoV VTI0.4 mAo Mean GR5.2 mmHgLVOT VTI0.28 m JUANCHO (VMAX)3.71 cm2AVA (VTI) 3.7 cm2 Mitral Valve MV E Chap035.5 cm/sDECEL Jxcv719 ms MV A Vmax87.1 cm/sP 1/2 T56 ms E/A ratio1.2MVA (PHT)3.9 cm2 TDI E/E' Quvbhf47.1E/E' Snsygif40.4 Medial E' Peak V9.25 cm/sLateral E' Peak V8.97 cm/s Pulmonary Valve PV Vmax1.0 m/sPV VTI0.24 mPV Mean GR2.4 mmHg PV Peak GR3.8 mmHg Tricuspid Valve RAP (EST) 3 mmHgRVSP3.0 mmHg Left Ventricle The left ventricle is normal size. GLS -23.0% There is normal LV segmental wall motion. There is norm al left ventricular wall thickness. The LVEF is > 65%. Indeterminate diastolic dysfunction. Right Ventricle The right ventricle is normal size. The right ventricular systolic function is normal. Atria The left atrium size is normal. The right atrium size is normal. Aortic Valve The aortic valve is normal in structure. No aortic regurgitation is present. There is no aortic valvu lar stenosis. Mitral Valve The mitral valve is normal in structure. There is trace of evidence of significant mitral regurgitati on. There is no mitral valve stenosis. Tricuspid Valve The tricuspid valve is normal in structure. There is no tricuspid valve regurgitation noted. Pulmonic Valve The pulmonary valve is normal in structure. There is no pulmonic valvular regurgitation. Great Vessels The aortic root is normal in size. The IVC is normal in size and collapses >50% with inspiration. Pericardium There is no pericardial effusion. Other Information Quality : Technically difficult study due to body habitus Conclusion The LVEF is > 65%.
[2025-01-03] VITALS (9 sets, daily range): BP systolic 115–132; BP diastolic 61–65; PULSE 71–99; RESP 16–20; TEMP 97.8–98.7; O2SAT 98–100
[2025-01-03 05:29] LABS: % IRON SATURATION 15.7 % (30-44); IRON, SERUM 23.0 mcg/dL (65-175)
[2025-01-03 08:25] LABS: IMMATURE GRANULOCYTE ABSOLUTE 0.05 K/uL (0-1); NUCLEATED RED BLOOD CELLS 0.0 % (0.0-0.19); PLATELET COUNT (AUTO) 108 K/uL (130-400); RED BLOOD CELL COUNT(AUTO) 2.68 MIL/uL (4.50-6.20); RED CELL DISTRIBUTION WIDTH 17.0 % (11.0-15.5); WHITE BLOOD COUNT (AUTO) 7.9 K/uL (4.8-10.8)
[2025-01-03 08:45] LABS: ASPARTATE AMINOTRANSFERASE 25.0 U/L (10-37); CREATININE 1.2 mg/dL (0.5-1.3); GLOMERULAR FILTR. RATE CALC 65.0 mL/min (>90); GLUCOSE,RANDOM 224.0 mg/dL (70-105); SODIUM SERUM 144.0 mmol/L (136-145); TOTAL PROTEIN, SERUM 6.6 g/dL (6.0-8.3); UREA NITROGEN, BLOOD 17.0 mg/dL (7-18)
--- NOTE | 2025-01-03 08:45 | NUR ---
round dr. cortez at bedside. reports pt cleared to go from his standpoint.
--- NOTE | 2025-01-03 11:53 | DS ---
Discharge Summary Hospital Course Summary: The patient is a 69-year-old male with past medical history of type 2 diabetes mellitus, alcoholic liver cirrhosis with recurrent ascites, chronic kidney disease with baseline creatinine of 1.4-1.6, frailty who presented with left lower extremity redness, swelling pain associated with subjective fevers and m alaise for 1 week. Outpatient treatment with Augmentin and doxycycline was ineffective. Bilateral lower extremity venous Doppler was negative for DVT. Initial labs WBC elevated 11.9, anemia with hemoglobin 11.4, hypokalemia potassium 3.2, creatinine 1.4, total bilirubin 2.3, CRP 135, procalcitonin 1.31 and iron studies consistent with iron deficiency/anemia of chronic disease. Pa racentesis was performed, removing 4.5 L [place] [address], neutrophils 83% indicating spontaneous bacterial peritonitis. Six doses of 25% albumin were administered per protocol. Blood cultures were negative, urine culture resulted in mixed skin tessy contamination. The patient remained hemodynamically stable, ambulating independently, tolerating diet. Today the patient is seen and examined at the bedside. Hemodynamically stable. Ambulating independently, tolerating diet. He denies fever, chills, nausea, vomiting, chest pain, palpitations, abdominal pain, burning sensation when urination, numbness/tingling sensations/weakness in upper and lower extremities. He mentions that his left lower extremity pain and swelling has significantly improved. Labs prior to discharge showed WBC 7.9, hemoglobin 9.2, potassium 3.3 [replaced according to the protocol], iron studies consistent with iron deficiency/anemia of chronic disease,1 dose of IV Venofer was ordered per Nephrology recommendations. 2D echo showed preserved LV function with EF 65%. Patient is being discharged home today with prescription of Ceftin 500 mg p.o. b.i.d. for 14 days, fluconazole for onychomycosis 200 mg p.o. daily by ID consult. The patient will be discharged with follow up appointments with Infectious Disease, Nephrology, hepatology, PCP for ongoing ascites management, monitoring for recurrent SBP and iron supplementation. He was instructed to continue low-sodium diet monitor for fever worsening leg swelling or redness, abdominal pain or other concerning symptoms and to seek immediate medical attention if these occur. [employer] Products(s): ID Consult ASSESSMENT: Bilateral lower extremities cellulitis, improved. Spontaneous bacterial peritonitis. Leukocytosis, resolved. Onychomycosis to toe nails on bilateral feet. Alcoholic liver cirrhosis. Ascites status post paracentesis with 4.5 L removed. Inguinoscrotal hernia, POA Acute on chronic renal failure, improved. Diabetes mellitus. PLAN: Continue Vancomycin Continue Cefepime Continue fluconazole p.o. Patient can be discharged on cefepime and fluconazole when ready to discharge. Prescription was written. Nephrology consult IMPRESSION: [id number] renal failure. Cellulitis. Cirrhosis. Anemia. PLAN: The patient has been started on the broad-spectrum IV antibiotics. Culture results are pending. The patient does have significant ascites and is scheduled for paracentesis later today. The patient's creatinine is noted. We will continue to monitor his chemistries closely. Blood pressure is under adequate control. The patient does have significant anemia. We will check iron levels for completeness and will follow the patient closely. He remains on the diuretics for volume overload. All labs will be repeated in the morning. The patient with multiple questions, all of which were answered. Procedure(s): PATIENT: EDAWR LOPEZ JR MR#: [id number] : 1955 SEX: M AGE: 69 LOCATION: [facility] ORDER 2300 STATUS: ADM IN REPORT#: [id number] SERVICE 0800 REASON: diagnostic and therapeutic parcentesis, hx of alcoholic liver cirrhosis ORDERING PHYSICIAN: MADISYN BRUNER MD PROCEDURE: PARA ABD - US ABDOMINAL PARACENTESIS IR US ABDOMINAL PARACENTESIS IR REASON: diagnostic and therapeutic parcentesis, hx of alcoholic liver cirrhosis TECHNIQUE: Paracentesis was performed with ultrasound guidance. The puncture site was selected in the Right lower quadrant and overlying skin prepped and draped in a sterile fashion. 1% Xylocaine infiltration was performed. Catheter was placed in the fluid using trocar technique. 4.5 L were removed. Fluid sample was submitted for laboratory evaluation. The patient showed no evidence of complication during the procedure. Patient tolerated procedure well. IMPRESSION: 1. Ultrasound-guided paracentesis. DICTATED BY: LAYTON SOLORZANO MD DATE: 01/02/25 125 ELECTRONICALLY SIGNED BY: LAYTON SOLORZANO MD DATE: 01/02/25 125 PATIENT: EDWAR LOPEZ JR MR#: [id number] : 1955 SEX: M AGE: 69 LOCATION: [facility] ORDER STATUS: ADM IN REPORT#: [id number] SERVICE 0000 REASON: r/o heart failure, heart clinic to read ORDERING PHYSICIAN: MADISYN BRUNER MD PROCEDURE: ECHO CMP - ECHO 2-D COMPLETE APPROVED REPORT EXAM: Two-dimensional and M-mode echocardiogram with Doppler and color Doppler. INDICATION ICD: Rule out heart failure 2D Dimensions RVDd 4.1 cm LVEF(%) 59.4 (>50%) LVED Vol(simp.) 124.0 mL IVSd 0.9 (0.7-1.1cm) FS(%) 31 % LVES Vol(simp.) 41.0 mL LVDd 3.5 (3.8-5.6cm) LA (2D) 4.3 (1.6-4.0cm) LVEF(%, simp.) 67 % PWd 1.0 (0.7-1.1cm) Ao Root(2D) 2.9 (2.0-3.7cm) LA ESV INDEX (BP) 31.54 mL/m2 LVDs 2.4 (2.5-4.0cm) LVOT diam 2.5 (1.8-2.4cm) IVC diam 1.6 cm Deformation Strain Apical 4 -23.7 % Apical 2 -21.2 % Apical 3 -23.4 % Global Strain -22.8 % M-Mode Dimensions EPSS 0.6 cm LA (MM) 3.1 (1.6-4.0cm) Ao Root(MM) 2.9 (2.0-3.7cm) Aortic Valve AoV Vmax 1.5 m/s Ao Peak GR 8.9 mmHg LVOT Vmax 1.2 m/s AoV VTI 0.4 m Ao Mean GR 5.2 mmHg LVOT VTI 0.28 m JUANCHO (VMAX) 3.71 cm2 JUANCHO (VTI) 3.7 cm2 Mitral Valve MV E Vmax 102.5 cm/s DECEL Time 280 ms MV A Vmax 87.1 cm/s P 1/2 T 56 ms E/A ratio 1.2 MVA (PHT) 3.9 cm2 TDI E/E' Medial 11.1 E/E' Lateral 11.4 Medial E' Peak V 9.25 cm/s Lateral E' Peak V 8.97 cm/s Pulmonary Valve PV Vmax 1.0 m/s PV VTI 0.24 m PV Mean GR 2.4 mmHg PV Peak GR 3.8 mmHg Tricuspid Valve RAP (EST) 3 mmHg RVSP 3.0 mmHg Left Ventricle The left ventricle is normal size. GLS -23.0% There is normal LV segmental wall motion. There is normal left ventricular wall thickness. The LVEF is > 65%. Indeterminate diastolic dysfunction. Right Ventricle The right ventricle is normal size. The right ventricular systolic function is normal. Atria The left atrium size is normal. The right atrium size is normal. Aortic Valve The aortic valve is normal in structure. No aortic regurgitation is present. There is no aortic valvular stenosis. Mitral Valve The mitral valve is normal in structure. There is trace of evidence of significant mitral regurgitation. There is no mitral valve stenosis. Tricuspid Valve The tricuspid valve is normal in structure. There is no tricuspid valve regurgitation noted. Pulmonic Valve The pulmonary valve is normal in structure. There is no pulmonic valvular regurgitation. Great Vessels The aortic root is normal in size. The IVC is normal in size and collapses >50% with inspiration. Pericardium There is no pericardial effusion. Other Information Quality : Technically difficult study due to body habitus Conclusion The LVEF is > 65%. DICTATED BY: CHAPIN VALIENTE MD DATE: 01/02/25 1119 ELECTRONICALLY SIGNED BY: CHAPIN VALIENTE MD DATE: 01/02/25 2993 PATIENT: EDWAR LOPEZ JR MR#: [id number] : 1955 SEX: M AGE: 69 LOCATION: 3C ORDER 164 STATUS: ADM IN REPORT#: [id number] SERVICE 1641 REASON: RLE EDEMA, R/O ANY DVT ORDERING PHYSICIAN: MADISYN BRUNER MD PROCEDURE: VENOUS UNI - US VENOUS DOPPLER UNILATERAL EXAM: US for Deep Venous Thrombosis, right Lower Extremity. CLINICAL HISTORY: Leg Pain and Swelling TECHNIQUE: Real-time ultrasound scan of the veins of the right lower extremity with color Doppler flow, spectral waveform analysis and compression. COMPARISON: None provided. FINDINGS: DEEP VEINS: The common femoral, superficial femoral, and popliteal veins are echolucent and compressible. There is normal color Doppler flow throughout. The visualized calf veins appear patent. SOFT TISSUES: No popliteal fossa cyst or other abnormalities. IMPRESSION: 1. No evidence of deep venous thrombosis in the right lower extremity. /[place] DICTATED BY: REBECCA WYNN MD DATE: 01/01/251908 ELECTRONICALLY SIGNED BY: REBECCA WYNN MD DATE: 01/01/251908 PATIENT: EDWAR LOPEZ JR MR#: [id number] : 1955 SEX: M AGE: 69 LOCATION: [facility] ORDER 34 STATUS: ADM IN [facility] REPORT#: [id number] SERVICE 32 REASON: assess if patient has large volume ascites for paracentesis ORDERING PHYSICIAN: MADISYN BRUNER MD PROCEDURE: ABD WALL - US ABD LIMITED/ABD WALL EXAMINATION: ULTRASOUND OF THE ABDOMEN (LIMITED). CLINICAL HISTORY: Ascites survey. COMPARISON: Ascites survey ultrasound dated 07/05/2024. TECHNIQUE: Real-time grayscale ultrasound images of the abdomen. FINDINGS: There is moderate free fluid in all the four quadrants. IMPRESSION: Moderate ascites. /[place] DICTATED BY: JEREMY RODRIGUEZ MD DATE: 01/02/25814 ELECTRONICALLY SIGNED BY: JEREMY RODRIGUEZ MD DATE: 01/02/25814 PATIENT: EDWAR LOPEZ JR MR#: [id number] : 1955 SEX: M AGE: 69 [facility] STATUS: ADM IN REPORT#: [id number] SERVICE 1430 REASON: non reoslving cellulitis of the LLE, hx of cirrhosis ORDERING PHYSICIAN: MADISYN BRUNER MD PROCEDURE: TIBFIB LT - TIBIA/FIBULA 2VWS LT EXAM: CR right Tibia and fibula, 2 View. CLINICAL HISTORY: non reoslving cellulitis of the LLE, hx of cirrhosis COMPARISON: None provided. FINDINGS: BONES: No acute fracture or aggressive appearing osseous lesion. JOINTS: No dislocation. The joint spaces are normal. SOFT TISSUES: Diffuse soft tissue swelling IMPRESSION: 1. No acute osseous injury. 2. Diffuse soft tissue swelling. /[place] DICTATED BY: REBECCA WYNN MD DATE: 01/01/251650 ELECTRONICALLY SIGNED BY: REBECCA WYNN MD DATE: 01/01/251650 PATIENT: EDWAR LOPEZ JR MR#: [id number] : 1955 SEX: M AGE: 69 LOCATION: [facility] ORDER STATUS: REG ER REPORT#: [id number] SERVICE 1213 REASON: LEFT LOWER CALF PAIN SWELLING ERYTHEMA. ORDERING PHYSICIAN: ARPAN BELLAMY PROCEDURE: VENOUS UNI - US VENOUS DOPPLER UNILATERAL EXAM: US for Deep Venous Thrombosis, left Lower Extremity. CLINICAL HISTORY: Leg Pain and Swelling TECHNIQUE: Real-time ultrasound scan of the veins of the left lower extremity with color Doppler flow, spectral waveform analysis and compression. COMPARISON: None provided. FINDINGS: DEEP VEINS: The common femoral, superficial femoral, and popliteal veins are echolucent and compressible. There is normal color Doppler flow throughout. The visualized calf veins appear patent. SOFT TISSUES: No popliteal fossa cyst or other abnormalities. IMPRESSION: 1. No evidence of deep venous thrombosis in the left lower extremity. /[place] DICTATED BY: NICOLE ZEPEDA MD DATE: 01/01/251506 ELECTRONICALLY SIGNED BY: NICOLE ZEPEDA MD DATE: 01/01/251506 Assessment/Plan: ASSESSMENT: Progressive left lower extremity cellulitis with failure of outpatient oral antibiotics, POA, resolving Leukocytosis, POA , resolved Spontaneous bacterial peritonitis, POA History of underlying alcoholic liver cirrhosis, meld Na score of 14, POA Hypokalemia, POA, resolving Tense ascites, POA s/p paracentesis [4.5L] on 01/02 Upper extremity ecchymosis and purpura secondary to underlying liver cirrhosis a nd coagulopathy, POA Acute on chronic kidney disease, POA resolved History of CKD stage 3, POA Hypertension, POA Type 2 diabetes mellitus, POA Debility/frailty, POA PLAN: ADMISSION DATE : 01/01/2025 DISCHARGE DATE : 01/03/2025 DISPOSITION : Home CONDITION : Stable Inspector Paper Products(s) : , ID consult, Nephrology consult FOLLOW UP APPOINTMENTS : Follow up with PCP within 2-3 days, GI doctor, within 2-3 weeks, Infectious disease consult, within 2 weeks, Nephrology consult, Dr. Cline outpatient PROCEDURES : Paracentesis on 01/02 IMAGING (s) : MICROBIOLOGY : BC- Neg, UC- Contamination, Ascitic fluid gram stain -no organisms ACTIVITY : [place] HOME MEDICATIONS : Continued NEW MEDICATIONS : Ceftin 500mg PO BID FOR 14 Days, Fluconazole 200mg PO, 12 days prescription given by ID consult TEACHING : The patient was instructed to present to the nearest Emergency Department or call 911 should their symptoms return or worsen. Discharge Instructions: Follow up with PCP within 2-3 days Follow up with your GI doctor, within 2-3 weeks Follow up with infectious disease consult, within 2 weeks Follow up with Nephrology consult, Dr. Cline outpatient Take antibiotics Ceftin and fluconazole as prescribed by ID consult Repeat thyroid panel and iron panel outpatient, please coordinate with PCP on this Follow low-sodium diet Avoid alcohol completely Elevate left lower extremity if swelling persists Continue diuretics, lactulose/rifaximin Monitor for symptoms like abdominal pain, distention or tenderness, fever or chills, shortness of breath, confusion excessive sleepiness or bleeding and seek immediate medical attention in such scenario Home Medications: Reported Medications Propranolol HCl (Propranolol HCl) 10 Mg Tablet, 1 TAB PO TID for 30 Days, #60 TAB 0 Refills 01/01/25 Lactulose (Lactulose) 10 Gram/15 Ml Solution, 30 ML PO TID for constipation, #500 ML 0 Refills 01/01/25 Insulin Glargine,Hum.rec.anlog (Lantus Solostar) 100 Unit/Ml (3 Ml) Insuln.pen, 35 UNIT SQ DAILY for 30 Days, #15 ML 0 Refills 01/01/25 Hydroxyzine HCl (Hydroxyzine HCl) 25 Mg Tablet, 25 MG PO HS, TAB 01/01/25 Furosemide (Furosemide) 20 Mg Tablet, 20 MG PO BID, TAB 01/01/25 Pantoprazole Sodium (Pantoprazole Sodium) 40 Mg Tablet.dr, 40 MG PO DAILY, TAB 10/14/21 Spironolactone (Spironolactone) 50 Mg Tablet, 50 MG PO DAILY, TAB 10/14/21 Discontinued Reported Medications Vitamin B Complex (Vitamin B Complex) 1 Each Tablet, 1 EACH PO DAILY, TAB 10/14/21 Lisinopril (Lisinopril) 10 Mg Tablet, 10 MG PO DAILY, TAB 10/14/21 Furosemide (Furosemide) 40 Mg Tablet, 40 MG PO DAILY, TAB 10/14/21 Metformin HCl (Metformin HCl) 1,000 Mg Tablet, 1000 MG PO DAILY, TAB 10/14/21 Simvastatin (Simvastatin) 20 Mg Tablet, 20 MG PO HS, TAB 10/14/21 Glipizide (Glipizide) 5 Mg Tablet, 5 MG PO DAILY, TAB 10/14/21 Lactulose (Lactulose) 10 Gm/15 Ml Solution, 10 GM PO BID, ML 10/14/21 Time spent arranging discharge: 31-60 minutes ATTESTATION BY PHYSICIAN I have seen and examined the patient. I reviewed the documentation, medical decision making, and treatment plan as noted by the resident provider above. I agree with the findings and plan of care. KATHY KING MD, PRIYANKA MD Jan 03, 2025 11:53
[2025-01-03] MEDS ORDERED: PoTASSium chl 10% ELIXIR 20MEQ 20 MEQ/15 ML UDCUP PO PRN (12:00)
[2025-01-03] MEDS ORDERED: COMPOUND IV MISC 1 EACH IVSOLN MISC PRN (12:30)
--- NOTE | 2025-01-03 12:37 | PN ---
INFECTIOUS DISEASE PROGRESS NOTE Date of Service: Jan 03, 2025 SUBJECTIVE: This is a 69-year-old male patient who was seen and examined at bedside in room 317. The cellulitis to bilateral lower extremity has improved. Patient is afebrile this morning, temperature is 98.8 and a WBC of 7.9. The Ascites fluid is positive for Spontaneous bacterial peritonitis. Patient can be discharged on cefepime and fluconazole when ready to discharge. Prescription was written. PHYSICAL EXAM EYES: Anicteric. Pupils equal and reactive. HENT: No oral thrush seen, moist Oral mucosa. NECK: Supple, no JVD or thyromegaly. LUNGS: Good air entry. No rales, no rhonchi. CARDIOVASCULAR: S1, S2 regular. No murmur heard. ABDOMEN: Large abdomen. Reducible umbilical hernia noted. CENTRAL NERVOUS SYSTEM: Awake, alert, oriented x 3. No focal deficits. SKIN: Redness and swelling of left lower extremity. Erythema to the right lower extremity. LYMPHATICS: No peripheral lymphadenopathy MUSCULOSKELETAL: No joint swelling. EXTREMITIES: No cyanosis or clubbing. 1+ edema, tenderness and erythema of left lower extremity. Onychomycosis to toe nails on bilateral feet. BACK: No deformity, no pressure ulcer. GENITOURINARY: Inguinoscrotal swelling, non reducible. No dysuria or hematuria. Vital Sign (Last 12 Hours) 01/03/25 01/03/25 01/03/25 01/03/25 00:52 02:16 04:00 04:19 Temp 98.2 97.9 97.9 Pulse 99 99 92 92 Resp 18 18 20 20 B/P (MAP) 115/61 123/65 123/65 Pulse Ox 98 97 97 O2 Delivery Room Air N/A Room Air Room Air Room Air FiO2 21 01/03/25 01/03/25 01/03/25 01/03/25 06:58 08:00 08:00 08:50 Temp 98.8 98.8 Pulse 94 71 71 Resp 18 16 16 B/P (MAP) 132/61 132/61 Pulse Ox 100 100 100 O2 Delivery N/A Room Air Room Air Room Air Room Air* O2 Flow Rate 0 FiO2 21 21 01/03/25 12:00 Temp 98.4 Pulse 74 Resp 18 B/P (MAP) 128/65 Pulse Ox 98 O2 Delivery Room Air Intake & Output (last 24hrs) 01/02/25 01/02/25 01/03/25 15:00 23:00 07:00 Intake Total 1090.0 ml 240 ml Output Total 900 ml 700 ml Balance 190.0 ml -460 ml LABS: Laboratory: Test 01/03/25 10:58 01/03/25 04:36 01/02/25 10:00 01/02/25 05:20 Range/Units Whole Blood Glucose 154 H 70-110 MG/DL White Blood Count 7.9 # 4.8-10.8 K/uL Red Blood Count 2.68 L 4.50-6.20 MIL/uL Hemoglobin 9.2 L 14.0-18.0 g/dL Hematocrit 28.2 L 42-54 % Mean Corpuscular Volume 105.2 H 79-99 fL Mean Corpuscular Hemoglobin 34.3 H 27.0-33.0 pg Mean Corpuscular Hemoglobin Concent 32.6 32.0-36.0 g/dL Red Cell Distribution Width 17.0 H 11.0-15.5 % Platelet Count 108 L 130-400 K/uL Mean Platelet Volume 10.5 7.5-10.5 fL Immature Granulocyte % (Auto) 0.6 0-1 % Neutrophils (%) (Auto) 80.0 H 40.0-77.0 % Lymphocytes (%) (Auto) 8.9 L 21.0-51.0 % Monocytes (%) (Auto) 7.0 3.0-13.0 % Eosinophils (%) (Auto) 3.2 0.0-8.0 % Basophils (%) (Auto) 0.3 0.0-5.0 % Neutrophils # (Auto) 6.3 1.8-7.7 K/uL Lymphocytes # (Auto) 0.7 L 1.0-4.8 K/uL Monocytes # (Auto) 0.6 0.1-1.0 K/uL Eosinophils # (Auto) 0.25 0.00-0.70 K/uL Basophils # (Auto) 0.02 0.00-0.20 K/uL Absolute Immature Granulocyte (auto 0.05 0-1 K/uL Nucleated Red Blood Cells 0.0 0.0-0.19 % Red Blood Cell Morphology See comments Sodium Level 144 136-145 mmol/L Potassium Level 3.3 L 3.5-5.1 mmol/L Chloride Level 107 101-111 mmol/L Carbon Dioxide Level 31 21-32 mmol/L Blood Urea Nitrogen 17 7-18 mg/dL Creatinine 1.2 0.5-1.3 mg/dL Glomerular Filtration Rate Calc 65 >90 mL/min Random Glucose 224 H 70-105 mg/dL Total Calcium 9.0 8.5-10.1 mg/dL Iron Level 23 #L 65-175 mcg/dL Total Iron Binding Capacity 146 L 250-450 mcg/dL Percent Iron Saturation 15.7 L 30-44 % Total Bilirubin 1.9 H 0.2-1.0 mg/dL Aspartate Amino Transf (AST/SGOT) 25 10-37 U/L Alanine Aminotransferase (ALT/SGPT) 31 12-78 U/L Alkaline Phosphatase 101 50-136 U/L Total Protein 6.6 6.0-8.3 g/dL Albumin 3.1 #L 3.5-5.0 g/dL Free Thyroxine (T4) Direct 0.84 0.76-1.46 ng/dL Free Triiodothyronine (T3) pg/mL 1.74 L 2.18-3.98 pg/mL Body Fluid Source ASCITES Body Fluid Volume 4500 mL Body Fluid Color LT YELLOW LT YELLOW Body Fluid Supernatant Appearance TURBID H CLEAR Body Fluid WBC 70034 /cu. mm. Body Fluid RBC 235 /cu. mm. Body Fluid Neutrophils 86.0 % Body Fluid Lymphocytes 4 % Body Fluid Monocytes % 6 % Body Fluid Macrophages (%) 4 Body Fluid Albumin < 0.6 g/dL Prothrombin Time 12.8 H 9.6-11.6 SEC Prothromb Time International Ratio 1.23 H 0.85-1.15 Activated Partial Thromboplast Time 31.6 26.3-35.5 SEC Lactic Acid Level 1.4 0.8-2.5 mmol/L Test 01/01/25 20:00 01/01/25 16:00 01/01/25 14:45 01/01/25 12:37 Range/Units Total Creatine Kinase 33 21-232 U/L Thyroid Stimulating Hormone (TSH) 0.25 #L 0.36-3.74 uIU/mL Hemoglobin A1c 7.2 H 4.0-6.0 % Estimated Average Glucose (eAG) 160 H 70-126 mg/dL Direct Bilirubin 0.9 H 0.0-0.3 mg/dL Ammonia < 10 L 11-32 umol/L Lactate Dehydrogenase 366 H 81-234 U/L C-Reactive Protein, Quantitative 135.60 H 0.5-3.0 mg/L Erythrocyte Sedimentation Rate 42 H 0-20 MM/HR Procalcitonin 1.31 H 0.05-0.5 ng/mL Test 01/01/25 12:35 Range/Units White Cell Morphology Comment See comments Troponin I High Sensitivity 6 4-75 ng/L ASSESSMENT: Bilateral lower extremities cellulitis, improved. Spontaneous bacterial peritonitis. Leukocytosis, resolved. Onychomycosis to toe nails on bilateral feet. Alcoholic liver cirrhosis. Ascites status post paracentesis with 4.5 L removed. Inguinoscrotal hernia, POA Acute on chronic renal failure, improved. Diabetes mellitus. PLAN:S Continue Vancomycin Continue Cefepime Continue fluconazole p.o. Patient can be discharged on cefepime and fluconazole when ready to discharge. Prescription was written. This case was reviewed and discussed with my supervising physician Dr. Milton and the above assessment and plan was formulated and agreed upon. ATTESTATION BY PHYSICIAN I have seen and examined the patient. I reviewed the documentation, medical decision making, and treatment plan as noted by the mid-level provider above. I agree with the findings and plan of care. REINIER MILTON MD, [facility] Jan 03, 2025 12:37
--- NOTE | 2025-01-03 13:10 | NUR ---
DISCHARGE DC'D IV. NO COMPLICATIONS. PT AWARE TO FOLLOW UP WITH DR. MILTON AT [facility] OFFICE ON 02/21/25 AT 12:00PM. PHONE NUMBER PROVIDED. PT AWARE TO FOLLOW UP WITH DR. BREG AND PCP. NO QUESTIONS AT THIS TIME. PT DENIES PAIN. PT WAITING FOR RIDE HOME.
[2025-01-03] MEDS: PoTASSium chloRIDE 20MEQ ER 20 MEQ ERTAB PO PRN (13:22)
--- NOTE | 2025-01-03 23:19 | PN ---
SUBJECTIVE: A 69-year-old male with a history of cirrhosis, patient with a history of diabetes mellitus, hypertension. Initially presented with nonhealing wound to the leg. The patient started on antibiotics. Workup does reveal significant renal dysfunction with an elevated BUN and creatinine and the patient is being seen as a followup visit for all of the above. The patient did undergo paracentesis yesterday. REVIEW OF SYSTEMS: CONSTITUTIONAL: He is feeling somewhat improved. HEENT: No change in vision. No change in hearing. CARDIOVASCULAR: There is no current chest pain or palpitations. PULMONARY: There is no shortness of breath. GASTROINTESTINAL: He is tolerating a diet. MUSCULOSKELETAL: Described above. PHYSICAL EXAMINATION: VITAL SIGNS: Blood pressure 132/61, pulse 70. He is afebrile. GENERAL: Chronically ill male, older than appearing. HEENT: Atraumatic. Pupils are equal, round and reactive to light. Oropharynx is without exudate. Nares are clear. NECK: There is no JVP. There is no thyromegaly, no mass. CARDIOVASCULAR: Regular. There is no S3 or S4 gallop. LUNGS: Coarse with equal thoracic movement. ABDOMEN: Soft, nondistended, nontender. EXTREMITIES: There is no clubbing, no cyanosis. NEUROLOGICAL: He is awake. He is alert. LABORATORY DATA: Sodium 144, potassium 3.4, BUN 17, creatinine 1.2. Iron levels are noted. Hemoglobin 9.2, hematocrit 28. IMPRESSION: Acute on chronic renal failure. Cellulitis. Cirrhosis. Anemia. PLAN: The patient's creatinine has much improved overnight. The patient remains on the antibiotics as prescribed. The patient does have significant anemia. The patient will be given a dose of Venofer while in the hospital. We will follow closely. The patient's electrolytes have all been aggressively repleted. He is status post paracentesis. Once the patient is discharged, the patient will follow up in the renal clinic. TID: [id number] RECEIPT: [id number]
[2025-01-12] MEDS ORDERED: PROP10TA10 PO (15:02)
== END 2025-01-03 14:00 | disposition home or self-care (01) | DRG 602 ==
LOC: EDH 12:07 → EDHIP 14:26 → 3CH 15:57
PROVIDERS: ADMIT Internal Medicine; ATTEND Internal Medicine
PROC: 0W9G3ZZ Drainage of Peritoneal Cavity, Percutaneous Approach (ICD-10-PCS; principal; 2025-01-02)
DX: L03.116 Cellulitis of left lower limb (principal); K65.2 Spontaneous bacterial peritonitis; N17.9 Acute kidney failure, unspecified; D68.9 Coagulation defect, unspecified; K70.31 Alcoholic cirrhosis of liver with ascites; L03.115 Cellulitis of right lower limb; E87.6 Hypokalemia; I12.9 Hypertensive chronic kidney disease with stage 1 through stage 4 chronic kidney disease, or unspecified chronic kidney disease; N18.31 Chronic kidney disease, stage 3a; E11.65 Type 2 diabetes mellitus with hyperglycemia; K40.90 Unilateral inguinal hernia, without obstruction or gangrene, not specified as recurrent; K42.9 Umbilical hernia without obstruction or gangrene; B35.1 Tinea unguium; D63.1 Anemia in chronic kidney disease; D50.9 Iron deficiency anemia, unspecified; D69.2 Other nonthrombocytopenic purpura; E11.22 Type 2 diabetes mellitus with diabetic chronic kidney disease; E78.5 Hyperlipidemia, unspecified; E87.70 Fluid overload, unspecified; Z79.899 Other long term (current) drug therapy; Z83.3 Family history of diabetes mellitus; Z87.891 Personal history of nicotine dependence
CPT/HCPCS: 36415; 49083; 73590; 76705; 80048; 80053; 80076; 81001; 82042; 82140; 82550; 82948; 83036; 83540; 83550; 83605; 83615; 84145; 84439; 84443; 84481; 84484; 85025; 85610; 85651; 85730; 86140; 87040; 87071; 87086; 87205; 89051; 93005; 93306; 93356; 93971; 96365; 99285; C1729; G0378; J0692; J1756; J1815; J3490; J7030; J7050; P9046; J3373; J3375

== ENCOUNTER 2025-01-10 15:37 | Inpatient (IN) | payer OTHER, MEDICARE ==
[~2025-01-10] VITALS: Ht 172.7 cm; Wt 72.5 kg
[~2025-01-10 15:37] MED LIST changes: +FURO20TA4 PO; -FURO40TA5 PO; -GLIP5TAB15 PO; +HYDR-3421 PO; +INSU3INS3 SQ; -LACT-441 PO; +LACT10SO85 PO; -LISI10TA24 PO; -METF-446 PO; +PROP10TA10 PO; -SIMV-43 PO; -VITA-427 PO
[2025-01-10 17:58] LABS: IMMATURE GRANULOCYTE ABSOLUTE 0.65 K/uL (0-1); NUCLEATED RED BLOOD CELLS 0.0 % (0.0-0.19); PLATELET COUNT (AUTO) 298 K/uL (130-400); RED BLOOD CELL COUNT(AUTO) 2.48 MIL/uL (4.50-6.20); RED CELL DISTRIBUTION WIDTH 16.5 % (11.0-15.5); WHITE BLOOD COUNT (AUTO) 24.5 K/uL (4.8-10.8)
--- NOTE | 2025-01-10 18:01 | ERN ---
General Chief Complaint: Other Problems Stated Complaint: OTHER Time Seen by MD: 15:45 Source: patient History of Present Illness Initial Comments Patient is a 69-year-old male coming in complaining of abnormal labs. Per patient he was seen by his PCP and sent in due to elevated white blood cell count. Patient states that he has a history of lower extremity wounds. Allergies: Coded Allergies: No Known Allergies (Unverified Allergy, Unknown, 10/13/21) Home Meds Reported Medications Propranolol HCl (Propranolol HCl) 10 Mg Tablet, 1 TAB PO TID for 30 Days, #60 TAB 0 Refills 01/01/25 Lactulose (Lactulose) 10 Gram/15 Ml Solution, 30 ML PO TID for constipation, #500 ML 0 Refills 01/01/25 Insulin Glargine,Hum.rec.anlog (Lantus Solostar) 100 Unit/Ml (3 Ml) Insuln.pen, 35 UNIT SQ DAILY for 30 Days, #15 ML 0 Refills 01/01/25 Hydroxyzine HCl (Hydroxyzine HCl) 25 Mg Tablet, 25 MG PO HS, TAB 01/01/25 Furosemide (Furosemide) 20 Mg Tablet, 20 MG PO BID, TAB 01/01/25 Pantoprazole Sodium (Pantoprazole Sodium) 40 Mg Tablet.dr, 40 MG PO DAILY, TAB 10/14/21 Spironolactone (Spironolactone) 50 Mg Tablet, 50 MG PO DAILY, TAB 10/14/21 Past Medical History Past Medical History: Diabetes-Type II, High Cholesterol, Heart Disease, Hypertension, Liver Disease Medical History Other: CIRRHOSIS OF LIVER Past Surgical History: None Family History Family History: Negative ROS Dictation CONSTITUTIONAL: No chills, no fever, no weakness, no diaphoresis, no malaise. HEAD/FACE: No signs of trauma. EENT: No eye pain, no blurred vision, no tearing, no double vision, no ear pain, no ear discharge, no nose pain, no nasal congestion, no throat pain, no throat swelling, no mouth pain. RESPIRATORY: No cough, no orthopnea, no SOB, no stridor, no wheezing. CARDIOVASCULAR: No chest pain, no edema, no palpitations, no syncope. GASTROINTESTINAL/ABDOMINAL: No abdominal pain, no constipation, no diarrhea, no nausea, no vomiting. GENITOURINARY: No abnormal discharge, no dysuria, no frequent urination, no hematuria. No complaints of pain in the genitals. MUSCULOSKELETAL: No back pain, no gout, no joint pain, no joint swelling, no muscle pain, no muscle stiffness, no neck pain. INTEGUMENTARY: No change in color, no change in hair/nails, no dryness, no lesion, no lumps, no rash. NEUROLOGICAL/PSYCH: No anxiety, not depressed, no emotional problem, no headache, no numbness, no pre-existing deficit, no history of seizures, no tremors, no weakness. HEMATOLOGIC/LYMPHATIC: Not anemic, no history of blood clots, no apparent bleeding, no bruising, glands not swollen. All Systems Negative, Except as Noted. Physical Exam Physical Exam Dictation VITAL SIGNS: Reviewed. GENERAL APPEARANCE: Alert, oriented x3, no acute distress, obese. HEAD AND FACE: Non-traumatic. EYES: PERRL, pink conjunctivas, eyelid no trauma, anterior chamber clear. EARS: Pinnas intact and no signs of trauma or erythema. Ear canals clear and no discharge. TMs no erythema. NOSE: No discharge, no bleeding. OROPHARYNX: Mouth normal, teeth no caries, tongue pink. Pharynx clear, no erythema. Tonsils no exudates, no abscesses noted. Mucous membrane moist. NECK: Supple, non-tender, no thyromegaly, no masses, no JVD, no bruits. BREAST: Deferred. CHEST: No tenderness, no crepitus, no paradoxical movement, no retractions. LUNGS: Clear, well-ventilated, symmetric, no rales, no wheezing, no rhonchi, no stridor, good breath sounds bilaterally. HEART: Regular rate, regular rhythm, no murmur, no gallops. VASCULAR: No peripheral edema. ABDOMEN: Soft, positive bowel sounds, nondistended, no guarding, nontender, no rebound, no masses no hepatomegaly, no splenomegaly, no Ramsey's sign, no hernias. RECTAL: Deferred. GENITAL: Deferred. NEUROLOGICAL: Normal speech, gross motor function intact, gross sensory function intact. MUSCULOSKELETAL: Neck nontender, full range of motion, back nontender, full range of motion. EXTREMITIES: Nontender, full range of motion. SKIN: Color pink, dry, no turgor, no rash, no lacerations, no abrasions, no contusions. LYMPHATICS: Deferred. Results Laboratory and Microbiology Lab and Micro Result Laboratory Tests Test 01/10/25 17:44 White Blood Count 24.5 K/uL (4.8-10.8) H Red Blood Count 2.48 MIL/uL (4.50-6.20) L Hemoglobin 8.4 g/dL (14.0-18.0) L Hematocrit 26.0 % (42-54) L Mean Corpuscular Volume 104.8 fL (79-99) H Mean Corpuscular Hemoglobin 33.9 pg (27.0-33.0) H Mean Corpuscular Hemoglobin Concent 32.3 g/dL (32.0-36.0) Red Cell Distribution Width 16.5 % (11.0-15.5) H Platelet Count 298 K/uL (130-400) Mean Platelet Volume 9.8 fL (7.5-10.5) Immature Granulocyte % (Auto) 2.7 % (0-1) H Neutrophils (%) (Auto) 90.6 % (40.0-77.0) H Lymphocytes (%) (Auto) 2.8 % (21.0-51.0) L Monocytes (%) (Auto) 3.1 % (3.0-13.0) Eosinophils (%) (Auto) 0.5 % (0.0-8.0) Basophils (%) (Auto) 0.3 % (0.0-5.0) Neutrophils # (Auto) 22.2 K/uL (1.8-7.7) H Lymphocytes # (Auto) 0.7 K/uL (1.0-4.8) L Monocytes # (Auto) 0.8 K/uL (0.1-1.0) Eosinophils # (Auto) 0.12 K/uL (0.00-0.70) Basophils # (Auto) 0.08 K/uL (0.00-0.20) Absolute Immature Granulocyte (auto 0.65 K/uL (0-1) Nucleated Red Blood Cells 0.0 % (0.0-0.19) White Cell Morphology Comment See comments Sodium Level 130 mmol/L (136-145) L Potassium Level 4.2 mmol/L (3.5-5.1) Chloride Level 94 mmol/L (101-111) L Carbon Dioxide Level 27 mmol/L (21-32) Blood Urea Nitrogen 41 mg/dL (7-18) H Creatinine 1.6 mg/dL (0.5-1.3) H Glomerular Filtration Rate Calc 46 mL/min (>90) Random Glucose 419 mg/dL (70-105) *H Lactic Acid Level 2.0 mmol/L (0.8-2.5) Total Calcium 9.0 mg/dL (8.5-10.1) Total Creatine Kinase 21 U/L (21-232) # Troponin I High Sensitivity 6 ng/L (4-75) Labs Reviewed?: Yes MDM MDM: Differential diagnosis: Sepsis, hyperglycemia, Rationale: Tests considered and ordered secondary to shared decision making include: Previous outside records reviewed: Old ER visits. Risk of complication and/or morbidity or mortality of patient management: None Medications-Per medication reconciliation Need for hospitalization: Patient does not meet criteria for hospitalization. Need for emergency major/minor surgery: No There are no social concerns with this patient. Prescription drug management Prescriptions will include symptomatic care Patient's prior external medical records from other ER visits were reviewed by me as indicated. Prior testing and results from previous visits were reviewed. Prior tests were taken into account with medical decision making and resource utilization, independent historian/historians were used to obtain complete medical history. I independently interpreted the test that were performed, results were reviewed by me and considered findings on radiology if ordered. Medical management and examination interpretation discussions were had by me with other qualified healthcare professionals as indicated for the patient's care. Patient care transitioned to Dr. Muñiz ED Course Orders Procedure Category Date Status Time Cbc With Differential LAB 01/10/25 Complete 15:50 Blood Cult DELORES 01/10/25 In Process 15:50 Urinalysis Profile LAB 01/10/25 Logged 15:50 Culture Urine DELORES 01/10/25 Logged 15:57 Creatine Kinase, Total LAB 01/10/25 Complete 15:57 Troponin I High LAB 01/10/25 Complete Sensitivity 15:57 Lactic Acid LAB 01/10/25 Complete 15:57 Basic Metabolic Panel LAB 01/10/25 Complete 15:57 Arterial Blood Gas + RT 01/10/25 Transmitted 18:43 Chest 1vw RAD 01/10/25 Logged 18:43 Ceftriaxone 1g Vial PHA 01/10/25 In Process (Rocephine 1g Inj) 19:00 Current Medications Medications (Trade) Dose Ordered Sig/Azael Route PRN Reason Start Time Stop Time Status Last Admin Dose Admin Ceftriaxone Sodium (ROCEphine 1G INJ) 1 gm ONCE IVPB 01/10/25 19:00 01/10/25 23:59 Vital Signs Date Time Temp Pulse Resp B/P (MAP) Pulse Ox O2 Delivery O2 Flow Rate FiO2 01/10/25 15:42 98.8 88 18 117/61 97 Room Air* 0 21 01/10/25 15:39 98.8 88 18 117/61 97 Room Air 0 DX & DISP Disposition: Other(Comment) (Patient care transitioned to dr muñiz.) Departure Condition: Stable Referrals: ZOHRA REDDY MD (PCP) ESTELA FINCH MD Jan 10, 2025 18:01
[2025-01-10 18:24] LABS: CREATINE KINASE, TOTAL 21.0 U/L (21-232); CREATININE 1.6 mg/dL (0.5-1.3); GLOMERULAR FILTR. RATE CALC 46.0 mL/min (>90); SODIUM SERUM 130.0 mmol/L (136-145); UREA NITROGEN, BLOOD 41.0 mg/dL (7-18)
[2025-01-10 18:27] LABS: GLUCOSE,RANDOM 419.0 mg/dL (70-105)
--- NOTE | 2025-01-10 19:35 | NUR ---
CALLED AND REVIEWED LABS WITH HUSSEIN MATIAS AWARE
[2025-01-10 19:58] LABS: ABG BASE EXCESS 1.0 mmol/L (-2.0-3.0); ABG HCO3 24.5 mmol/L (21.0-28.0); ABG OXYGEN SATURATION 95.9 % (94.0-98.0); ABG PCO2 35 mmHg (35-48); ABG PH 7.466 (7.350-7.450); CARBON MONOXIDE 0.3 % (0.5-1.5); DEVICE COMMENT RR; PO2, ARTERIAL BG 82.7 mmHg (83.0-108.0); TEMPERATURE, CELSIUS BG 37.0 CELSIUS (35.5-37.0); VENT MODE, BG RA (ROOM AIR)
--- NOTE | 2025-01-10 20:01 | HMCIMG ---
EXAM: CR Chest, 1 View. CLINICAL HISTORY: sepsis COMPARISON: None provided. FINDINGS: LUNGS: The lungs show no infiltrate or other acute finding. PLEURAL SPACES: No evidence of pleural effusion or pneumothorax. MEDIASTINUM: The cardiomediastinal silhouette is within normal limits. BONES: No aggressive appearing osseous lesion seen. IMPRESSION: No acute cardiopulmonary pathology is evident. /[place]
[2025-01-10 21:18] LABS: INR 1.11 (0.85-1.15)
[2025-01-10 21:48] LABS: ADD UA MICROSCOPIC YES; APPEARANCE,URINE CLEAR (CLEAR); GLUCOSE, URINE (UA) >=1000 mg/dL (NEGATIVE); LEUKOCYTE ESTERASE ,URINE NEGATIVE Leu/uL (NEGATIVE); NITRATE,URINE NEGATIVE (NEGATIVE); OCCULT BLOOD,URINE NEGATIVE (NEGATIVE)
[2025-01-10 21:50] LABS: HYALINE CASTS, URINE 0-1 /LPF (0-1 /LPF); OTHER CASTS, URINE 1 /LPF (None Seen); SQUAMOUS EPITHELIAL CELL,UR FEW /HPF (0-2)
--- NOTE | 2025-01-10 22:01 | HP ---
[facility] HISTORY AND PHYSICAL Date of Service: Jan 10, 2025 Time of Service: 22:01 PCP: Larissa Isaacs HISTORY OF PRESENT ILLNESS: This is a 69-year-old male past medical history of diabetes type 2, CKD stage III, alcohol liver cirrhosis with recurrent paracentesis, debility and umbilical hernia presents to the ED for evaluation of abnormal lab results.Patient reports [facility] done and was told his WBC was elevated and was instructed to come to the Ed for evaluation.Patient was recently admitted in this facility on 01/01/2025 for left lower extremity cellulitis and patient received antibiotic treatment and was discharged home on 01/03/2025.Patient states he had Paracentesis done on 01/02/2025 and 4.5 L of fluid was removed.Ascitic fluid WBC 16,324 ,RBC 235 and neutrophils Patient also reports he used to be a heavy cigarette smoker (1pack /day and a heavy alcohol drinker( 6pcks beer/day) x 40 years and quit on both 5 years ago. Seen and examined patient in the ER awake,alert and coherent.Patient is ambulatory using a cane.Patient appears comfortable.Patient denies fever,chills,cough,chest pain,palpitation,shortness of breath,nausea,vomiting,bloody emesis ,bloody stool,diarrhea and abdominal pain.Patient reports he feels fine he denies any symptoms .Primary nurse was at bedside during my evaluation. Latest vital signs temperature 97.5, heart rate 73, blood pressure 133/62 saturation 98% on room air. Labs: WBC 24 with negative left shift of neutrophils 90, hemoglobin 8, hematocrit 26, platelet count 298. Sodium 130, potassium 4.2, chloride 94, CO2 27, BUN 41, creatinine 1.6, GFR 46 glucose 419 lactic acid two total CK 21 troponin six albumin 2.8. ABG result: PH 7.46, CO2 35, PO2 82, bicarb 24, O2 saturation 95 base excess one. Urinalysis is significant with urine glucose above 1000 otherwise unremarkable. Chest x-ray result revealed no acute cardiopulmonary pathology is evident. While in the ER patient received, patient received Rocephin 1 g IV and insulin 15 units. We will admit patient for further medical management REVIEW OF SYSTEMS CONSTITUTIONAL: Denies fevers, chills, or night sweats. No unintentional weight loss reported. NEUROLOGICAL: Denies headache, amaurosis fugax, motor weakness, sensory deficit, vertigo/spinning sensation, gait abnormalities, or tremors. ENT: No hearing loss, otalgia, otorrhea, rhinitis, rhinorrhea, hoarseness, or sore throat. CARDIOVASCULAR: Denies any exertional angina, dyspnea on exertion, orthopnea, paroxysmal nocturnal dyspnea, palpitations, life-threatening arrhythmias, claudication. PULMONARY: Denies any shortness of breath, cough, phlegm/sputum, hemoptysis, pleuritic chest pain. SLEEP: Denies morning headaches, daytime somnolence or napping. Denies difficulty falling asleep, staying asleep, waking from sleep. Denies knowledge of snoring. GASTROINTESTINAL: Denies any type of dysphagia to either liquids or solids. Denies nausea, vomiting, pyrosis, early satiety, abdominal pain, diarrhea, constipation, or changes in stool consistency or caliber. Denies coffee-ground emesis, hematemesis, hematochezia, or melanotic stools. GENITOURINARY: Denies frequency, urgency, nocturia, hematuria or incontinence (Storage/Irritative symptoms.) Low urinary stream, straining to void, urinary intermittency or hesitancy, splitting of the voiding stream, terminal dribbling. ENDOCRINOLOGIC: Denies polyuria, polydipsia, polyphagia or heat/cold intolerances. HEMATOLOGIC: Denies thrombophilia/previous clots, or coagulopathy/bleeding di sorders. ONCOLOGIC: Denies personal history of malignancy. DERMATOLOGIC: Denies rashes or pruritus. PSYCHIATRIC: Denies any suicidal or homicidal ideation. Denies hallucinations. PAST MEDICAL HISTORY: [ diabetes type 2, CKD stage III, alcohol liver cirrhosis with recurrent paracentesis, debility and umbilical hernia ] PAST SURGICAL HISTORY: [Multiple recurrent Paracentesis ] PAST SOCIAL HISTORY: [ Patient lives alone. Patient states he used to be heavy smoker and heavy a lcohol drinker for 40 years and quit five years ago. Patient denies recreational drug use] FAMILY HISTORY: [Noncontributory ] Coded Allergies: No Known Allergies (Unverified Allergy, Unknown, 10/13/21) PHYSICAL EXAM GENERAL APPEARANCE: The patient is awake, alert, and oriented, in no acute cardiopulmonary distress. NEUROLOGICAL: Cranial nerves II-XII grossly intact. Motor is 5/5 in bilateral upper and lower extremities proximal to distal. No sensory deficits. HEENT: Face is symmetric. Pupils are equal and reactive. Extraocular movements are intact. NECK: Supple. No JVD. No thyromegaly. No submental, submandibular, pre- /postauricular, occipital or supraclavicular lymphadenopathy. CHEST: Normal chest expansion. No Telemetry. LUNGS: Absence of any rales, rhonchi or any wheezing. CARDIOVASCULAR: Regular. S1 and S2 normal. No appreciable rubs, murmurs or gallops. ABDOMEN: Soft, nontender and round . There is no rebound, voluntary guarding, or rigidity. : Deferred. No Rayo. EXTREMITIES: Left leg slightly swollen and with erythema recent left leg cellulitis . SKIN: Petechiae to both arms Vital Sign (Last 24 Hours) 01/10/25 21:17 Temp 97.5 Pulse 73 Resp 17 B/P (MAP) 126/50 Pulse Ox 100 O2 Delivery Room Air* O2 Flow Rate 0 FiO2 21 LABS: Laboratory: Test 01/10/25 21:40 01/10/25 19:56 01/10/25 17:44 Range/Units Urine Color YELLOW YELLOW Urine Appearance CLEAR CLEAR Urine pH 6.0 5.0-8.0 Urine Specific [place] 1.009 1.001-1.031 Urine Protein NEGATIVE NEGATIVE mg/dL Urine Glucose (UA) >=1000 H NEGATIVE mg/dL Urine Ketones NEGATIVE NEGATIVE mg/dL Urine Occult Blood NEGATIVE NEGATIVE Urine Nitrate NEGATIVE NEGATIVE Urine Bilirubin NEGATIVE NEGATIVE mg/dL Urine Urobilinogen 0.2 0.2-1.0 mg/dL Urine Leukocyte Esterase NEGATIVE NEGATIVE [place]/uL Urine RBC None 0-1 /HPF Urine WBC 0-1 0-1 /HPF Urine Squamous Epithelial Cells FEW 0-2 /HPF Urine Bacteria RARE None Seen /HPF Urine Hyaline Casts 0-1 0-1 /LPF /LPF Urine Other Casts 1 None Seen /LPF Blood Gas Specimen Type Arterial Arterial Blood pH 7.466 H 7.350-7.450 Arterial Blood Partial Pressure CO2 35 35-48 mmHg Arterial Blood Partial Pressure O2 82.7 L 83.0-108.0 mmHg Arterial Blood HCO3 24.5 21.0-28.0 mmol/L Arterial Blood Oxygen Saturation 95.9 94.0-98.0 % Arterial Blood Base Excess 1.0 -2.0-3.0 mmol/L Hemoglobin (Blood Gas) 9.6 L 13.5-17.5 g/dL Sodium (Blood Gas) 129 L 136-145 MMOL/L Bedside Potassium (Blood Gas) 4.4 3.4-4.5 MMOL/L Bedside Chloride (Blood Gas) 97 L 98-107 MMOL/L Bedside Glucose (Blood Gas) 430 *H 65-95 MG/DL Bedside Ionized Calcium (Blood Gas) 1.20 1.15-1.33 MMOL/L Bedside Lactic Acid (Blood Gas) 1.88 H 0.36-0.75 MMOL/L Blood Gas Temperature 37.0 35.5-37.0 CELSIUS Blood Gas Vent Mode RA ROOM AIR FiO2 21.0 % Blood Gas Specimen Comment RR White Blood Count 24.5 H 4.8-10.8 K/uL Red Blood Count 2.48 L 4.50-6.20 MIL/uL Hemoglobin 8.4 L 14.0-18.0 g/dL Hematocrit 26.0 L 42-54 % Mean Corpuscular Volume 104.8 H 79-99 fL Mean Corpuscular Hemoglobin 33.9 H 27.0-33.0 pg Mean Corpuscular Hemoglobin Concent 32.3 32.0-36.0 g/dL Red Cell Distribution Width 16.5 H 11.0-15.5 % Platelet Count 298 130-400 K/uL Mean Platelet Volume 9.8 7.5-10.5 fL Immature Granulocyte % (Auto) 2.7 H 0-1 % Neutrophils (%) (Auto) 90.6 H 40.0-77.0 % Lymphocytes (%) (Auto) 2.8 L 21.0-51.0 % Monocytes (%) (Auto) 3.1 3.0-13.0 % Eosinophils (%) (Auto) 0.5 0.0-8.0 % Basophils (%) (Auto) 0.3 0.0-5.0 % Neutrophils # (Auto) 22.2 H 1.8-7.7 K/uL Lymphocytes # (Auto) 0.7 L 1.0-4.8 K/uL Monocytes # (Auto) 0.8 0.1-1.0 K/uL Eosinophils # (Auto) 0.12 0.00-0.70 K/uL Basophils # (Auto) 0.08 0.00-0.20 K/uL Absolute Immature Granulocyte (auto 0.65 0-1 K/uL Nucleated Red Blood Cells 0.0 0.0-0.19 % White Cell Morphology Comment See comments Prothrombin Time 11.6 9.6-11.6 SEC Prothromb Time International Ratio 1.11 0.85-1.15 Sodium Level 130 L 136-145 mmol/L Potassium Level 4.2 3.5-5.1 mmol/L Chloride Level 94 L 101-111 mmol/L Carbon Dioxide Level 27 21-32 mmol/L Blood Urea Nitrogen 41 H 7-18 mg/dL Creatinine 1.6 H 0.5-1.3 mg/dL Glomerular Filtration Rate Calc 46 >90 mL/min Random Glucose 419 *H 70-105 mg/dL Hemoglobin A1c 7.9 H 4.0-6.0 % Estimated Average Glucose (eAG) 180 H 70-126 mg/dL Lactic Acid Level 2.0 0.8-2.5 mmol/L Total Calcium 9.0 8.5-10.1 mg/dL Total Creatine Kinase 21 # 21-232 U/L Troponin I High Sensitivity 6 4-75 ng/L Current Medications Medications (Trade) Dose Ordered Sig/Azael Route PRN Reason Start Time Stop Time Status Last Admin Dose Admin Ceftriaxone Sodium (ROCEphine 1G INJ) 1 gm ONCE IVPB 01/10/25 19:00 01/10/25 23:59 DIAGNOSTICS / RADIOLOGY: [ ] ASSESSMENT: Spontaneous bacterial peritonitis 2/2 recurrent paracentesis(ascitic fluid WBC 16,324 on 01/02/2025) POA Alcoholic liver cirrhosis with ascites POA Acute Kidney injury in cirrhosis POA Uncontrolled Diabetes type 2 with hyperglycemia POA Severe Acute leukocytosis POA Acute on chronic anemia POA Recent Left leg cellulitis POA POA Pseudohyponatremia secondary to hyperglycemia POA Protein calorie malnutrition POA Umbilical hernia POA Right inguinal scrotal hernia POA PLAN: We will admit patient in [facility] We will start on consistent carb diet We will start on Albumin IV 25% 100ml IV Q6H x 2doses 1st dose now and rounding MD to re evaluate the next succeeding doses for 2 days We will start on Rocephin 1 g IV daily for empiric coverage We will start on Protonix 40 mg IV daily for GI prophylaxis We will replace electrolytes as needed per protocol We will start on insulin sliding scale q.4 hours with hypoglycemia protocol We will add prn medication for fever,pain,cough , nausea and vomiting We will reconcile home meds once medlist available We will seek Infectious Disease consultation There is a CT abdomen and pelvis with and without contrast ordered pending to be done this time. We will request labs in am Further orders to follow depending on above results Case discussed with attending physician and came up with above treatment and plan of care. ADVANCED CARE PLANNING 1. Which of the following were discussed? Hospice Care - No Therapeutic options - Yes Advance Directives - No Other discussions - 2. Discussed with who? Patient 3. Voluntary nature of this service was explained to the patient? Yes 4. Amount of time spent - ___26 min____ 5. Reviewed by Physician? (if this service was performed by NPP) Yes Patient seen and examined by me. Agree with note by TESTING LEAD SEE ADDITIONAL ORDERS PER CHART DISCUSSED WITH NURSING STAFF GILDARDO KHOURYP Jan 10, 2025 22:01
[2025-01-10 22:24] LABS: ASPARTATE AMINOTRANSFERASE 21.0 U/L (10-37); TOTAL PROTEIN, SERUM 7.0 g/dL (6.0-8.3)
[2025-01-10] MEDS ORDERED: IOHEXOL-350 75 ML VIAL IV ONE (22:46)
[2025-01-11] MEDS ORDERED: DEXTROSE 50%-WATER 50 ML DISP.SYRIN IV PRN
[2025-01-11] MEDS ORDERED: PoTASSium chl 10% ELIXIR 20MEQ 20 MEQ/15 ML UDCUP PO PRN
[2025-01-11] MEDS ORDERED: GLUCAGON 1MG KIT 1 MG ML IM PRN
[2025-01-11] MEDS: ALBUMIN (HUMAN) 25% 100 ML IV SCH (00:25)
--- NOTE | 2025-01-11 00:49 | HMCIMG ---
EXAM: CT Abdomen and Pelvis without and with IV contrast. CLINICAL HISTORY: Cirrhosis. TECHNIQUE: Thin collimated axial CT images of the abdomen and pelvis were obtained, with sagittal and coronal reformatted images also submitted. A CT scan is done according to ALARA (As Low As Reasonably Achievable). CONTRAST: Omnipaque [id number] COMPARISON: None. FINDINGS: Mild right pleural effusion. No focal abnormality within the pancreas, spleen, adrenals, or kidneys. The liver is small with diffuse surface nodularity, suggesting liver cirrhosis. The portal vein is replaced by a portal cavernoma. Multiple dilated tortuous venous collateral vessels in the abdomen and pelvis, predominantly in the right intrahepatic location. An 8 mm gallbladder calculus with no acute cholecystitis. Mild colonic diverticulosis with no acute diverticulitis. There is no obvious bowel wall thickening. Bowel loops are normal in caliber without evidence of obstruction or ileus. The appendix is normal. There is no abnormality within the urinary bladder. Unremarkable reproductive organs. Abdominal and pelvic vessels are patent. Scattered atherosclerotic wall calcifications in the abdominal aorta and its branches No lymphadenopathy. Mild ascites. Large right inguinal hernia containing omental fat and fluid. Small umbilical hernia containing omental fat and fluid. There is no acute osseous abnormality. Multilevel thoracolumbar spondylosis. IMPRESSIONS: Liver cirrhosis. Portal cavernoma with multiple dilated tortuous venous collateral vessels in the abdomen and pelvis. Cholelithiasis with no acute cholecystitis. Mild colonic diverticulosis with no acute diverticulitis. Mild ascites. Right inguinal and umbilical hernias. Mild right pleural effusion. /[place]
[2025-01-11 05:58] LABS: IMMATURE GRANULOCYTE ABSOLUTE 0.35 K/uL (0-1); NUCLEATED RED BLOOD CELLS 0.0 % (0.0-0.19); PLATELET COUNT (AUTO) 329 K/uL (130-400); RED BLOOD CELL COUNT(AUTO) 2.51 MIL/uL (4.50-6.20); RED CELL DISTRIBUTION WIDTH 16.5 % (11.0-15.5); WHITE BLOOD COUNT (AUTO) 24.4 K/uL (4.8-10.8)
[2025-01-11 06:43] LABS: ASPARTATE AMINOTRANSFERASE 27.0 U/L (10-37); CREATININE 1.1 mg/dL (0.5-1.3); GLOMERULAR FILTR. RATE CALC 72.0 mL/min (>90); GLUCOSE,RANDOM 103.0 mg/dL (70-105); SODIUM SERUM 136.0 mmol/L (136-145); TOTAL PROTEIN, SERUM 7.1 g/dL (6.0-8.3); UREA NITROGEN, BLOOD 31.0 mg/dL (7-18)
--- NOTE | 2025-01-11 07:28 | NUR ---
assumed patient care at this time
--- NOTE | 2025-01-11 08:25 | NUR ---
dr diego balderas at bedside with patient
--- NOTE | 2025-01-11 10:39 | NUR ---
DCP:HOME Pt currently lives alone in his home. Pt does use a walker and walking stick to ambulate. Pt denies having home health and provider services. Pt states that he is able to complete ADLs independently. PCP is Dr. Ferny Dias and uses the [facility] for any RX needs. At [place] pt will want to go home and family can assist with transportation. Addendum: 01/11/25 at 1042 by REBECCA STONE SS Amended: Links added.
--- NOTE | 2025-01-11 11:59 | NUR ---
PATIENTS IV WAS INFILTRATED, I DC'D IV WITH CATH STILL INTACT AND APPLIED 2X2 GAUZE WITH COBAN, I APPLIED PAPER TAPE TO PATIENT INSTEAD OF PLASTIC DUE TO HIS SKIN BEING DELICATE AND SENSITIVE TO PLASTIC TAPE, HE DOES HAVE A SKIN TEAR ON HIS LEFT AC UPON ASSESSMENT, PATIENT RESTING IN BED, CALL LIGHT IN REACH
[2025-01-11] MEDS: ZOSYN 3.375GM +NS 50ML IVPB SCH (12:26)
--- NOTE | 2025-01-11 13:54 | CONS ---
INFECTIOUS DISEASE CONSULTATION NOTE Date of Service: Jan 11, 2025 Reason for Consultation: Spontaneous bacterial peritonitis Requesting Physician: GILDARDO KHOURY HISTORY OF PRESENT ILLNESS: This is a 69-year-old male with a past medical history significant for diabetes mellitus type 2, CKD stage III, alcoholic liver cirrhosis, and recurrent paracentesis, who presented to the ER for evaluation of abnormal laboratory results and general weakness. The patient was recently hospitalized from 01/03/2025 to 01/05/2025 for left lower extremity cellulitis, during which he was treated with IV antibiotic and underwent a therapeutic paracentesis with removal of 4 liters of ascitic fluid, which revealed WBC 16,324. Discharged on Ceftin 500 mg p.o. twice daily and fluconazole 200 mg p.o. daily. He admits he did not complete the prescribed antibiotic after discharge. No abdominal pain, cough, chest pain, shortness of breath, or urinary symptoms. No confusion or encephalopathy reported. Currently, he feels well and denies fever, chills, worsening leg pain, redness, or drainage. On examination today, the left lower extremity shows persistent erythema over the distal anterior tibial area. The skin is warm to touch but nontender, with no induration, fluctuance, open wounds, or drainage. Peripheral pulses are palpable and sensation is intact. ID was consulted for evaluation and management of spontaneous bacterial peritonitis and to provide recommendations regarding ongoing antibiotic therapy. REVIEW OF SYSTEMS CONSTITUTIONAL: Denies fever, chills, or fatigue. HEAD/FACE: No signs of trauma. EENT: Denies eye pain, blurred vision, double vision, or light sensitivity. RESPIRATORY: Denies shortness of breath, cough, wheezing CARDIOVASCULAR: Denies chest pain, palpitation, syncope GASTROINTESTINAL/ABDOMINAL: Denies abdominal pain, constipation, diarrhea, nausea or vomiting GENITOURINARY: Denies dysuria or hematuria. MUSCULOSKELETAL: Denies joint pain, tenderness, or trauma. INTEGUMENTARY: Denies rash or itchiness NEUROLOGICAL/PSYCH: Denies anxiety, depression, heat or cold intolerance. PAST MEDICAL HISTORY: DM type 2 CKD stage III ETOH liver cirrhosis with recurrent paracentesis debility and umbilical hernia PAST SURGICAL HISTORY: Multiple recurrent paracentesis PAST SOCIAL HISTORY: lives alone former heavy smoker former heavy ETOH consumption - quit 5 years ago denies illicit drug use FAMILY HISTORY: Noncontributory Coded Allergies: No Known Allergies (Unverified Allergy, Unknown, 10/13/21) PHYSICAL EXAM EYES: Anicteric. Pupils equal and reactive. HENT: No oral thrush seen, moist Oral mucosa NECK: Supple, no JVD or thyromegaly. LUNGS: Good air entry. No rales, no rhonchi. CARDIOVASCULAR: S1, S2 regular. No murmur heard. ABDOMEN: Soft, non tender, bowel sounds present, no organomegaly, distended, umbilical hernia CENTRAL NERVOUS SYSTEM: Awake, alert, oriented x 3. No focal deficits. SKIN: upper extremity bilateral petechiae. LYMPHATICS: No peripheral lymphadenopathy MUSCULOSKELETAL: No joint swelling, erythema or tenderness. EXTREMITIES: Left leg swollen with erythema and recurrent left leg cellulitis BACK: No deformity, no pressure ulcer. GENITOURINARY: No dysuria or hematuria Vital Sign (Last 24 Hours) 01/11/25 11:20 Temp 97.5 Pulse 71 Resp 17 B/P (MAP) 113/48 Pulse Ox 98 O2 Delivery Room Air* O2 Flow Rate 0 FiO2 21 Intake & Output (last 24hrs) 01/10/25 01/10/25 01/11/25 15:00 23:00 07:00 Output Total 550 ml Balance -550 ml LABS: Laboratory: Test 01/11/25 12:24 01/11/25 09:43 01/11/25 05:52 01/10/25 21:40 Range/Units Whole Blood Glucose 122 H 70-110 MG/DL Lactic Acid Level 1.6 0.8-2.5 mmol/L Ammonia 20 11-32 umol/L White Blood Count 24.4 H 4.8-10.8 K/uL Red Blood Count 2.51 L 4.50-6.20 MIL/uL Hemoglobin 8.7 L 14.0-18.0 g/dL Hematocrit 25.6 L 42-54 % Mean Corpuscular Volume 102.0 H 79-99 fL Mean Corpuscular Hemoglobin 34.7 H 27.0-33.0 pg Mean Corpuscular Hemoglobin Concent 34.0 32.0-36.0 g/dL Red Cell Distribution Width 16.5 H 11.0-15.5 % Platelet Count 329 130-400 K/uL Mean Platelet Volume 10.1 7.5-10.5 fL Immature Granulocyte % (Auto) 1.4 H 0-1 % Neutrophils (%) (Auto) 91.8 H 40.0-77.0 % Lymphocytes (%) (Auto) 2.7 L 21.0-51.0 % Monocytes (%) (Auto) 3.2 3.0-13.0 % Eosinophils (%) (Auto) 0.7 0.0-8.0 % Basophils (%) (Auto) 0.2 0.0-5.0 % Neutrophils # (Auto) 22.4 H 1.8-7.7 K/uL Lymphocytes # (Auto) 0.7 L 1.0-4.8 K/uL Monocytes # (Auto) 0.8 0.1-1.0 K/uL Eosinophils # (Auto) 0.17 0.00-0.70 K/uL Basophils # (Auto) 0.06 0.00-0.20 K/uL Absolute Immature Granulocyte (auto 0.35 0-1 K/uL Nucleated Red Blood Cells 0.0 0.0-0.19 % Sodium Level 136 136-145 mmol/L Potassium Level 3.9 3.5-5.1 mmol/L Chloride Level 100 L 101-111 mmol/L Carbon Dioxide Level 29 21-32 mmol/L Blood Urea Nitrogen 31 H 7-18 mg/dL Creatinine 1.1 0.5-1.3 mg/dL Glomerular Filtration Rate Calc 72 >90 mL/min Random Glucose 103 # 70-105 mg/dL Total Calcium 8.8 8.5-10.1 mg/dL Magnesium Level 1.70 L 1.80-2.40 mg/dL Total Bilirubin 0.7 0.2-1.0 mg/dL Direct Bilirubin 0.3 0.0-0.3 mg/dL Aspartate Amino Transf (AST/SGOT) 27 10-37 U/L Alanine Aminotransferase (ALT/SGPT) 31 12-78 U/L Alkaline Phosphatase 136 50-136 U/L Total Protein 7.1 6.0-8.3 g/dL Albumin 3.0 L 3.5-5.0 g/dL Procalcitonin 0.14 0.05-0.5 ng/mL Urine Color YELLOW YELLOW Urine Appearance CLEAR CLEAR Urine pH 6.0 5.0-8.0 Urine Specific [place] 1.009 1.001-1.031 Urine Protein NEGATIVE NEGATIVE mg/dL Urine Glucose (UA) >=1000 H NEGATIVE mg/dL Urine Ketones NEGATIVE NEGATIVE mg/dL Urine Occult Blood NEGATIVE NEGATIVE Urine Nitrate NEGATIVE NEGATIVE Urine Bilirubin NEGATIVE NEGATIVE mg/dL Urine Urobilinogen 0.2 0.2-1.0 mg/dL Urine Leukocyte Esterase NEGATIVE NEGATIVE [place]/uL Urine RBC None 0-1 /HPF Urine WBC 0-1 0-1 /HPF Urine Squamous Epithelial Cells FEW 0-2 /HPF Urine Bacteria RARE None Seen /HPF Urine Hyaline Casts 0-1 0-1 /LPF /LPF Urine Other Casts 1 None Seen /LPF Test 01/10/25 19:56 01/10/25 17:44 Range/Units Blood Gas Specimen Type Arterial Arterial Blood pH 7.466 H 7.350-7.450 Arterial Blood Partial Pressure CO2 35 35-48 mmHg Arterial Blood Partial Pressure O2 82.7 L 83.0-108.0 mmHg Arterial Blood HCO3 24.5 21.0-28.0 mmol/L Arterial Blood Oxygen Saturation 95.9 94.0-98.0 % Arterial Blood Base Excess 1.0 -2.0-3.0 mmol/L Hemoglobin (Blood Gas) 9.6 L 13.5-17.5 g/dL Sodium (Blood Gas) 129 L 136-145 MMOL/L Bedside Potassium (Blood Gas) 4.4 3.4-4.5 MMOL/L Bedside Chloride (Blood Gas) 97 L 98-107 MMOL/L Bedside Glucose (Blood Gas) 430 *H 65-95 MG/DL Bedside Ionized Calcium (Blood Gas) 1.20 1.15-1.33 MMOL/L Bedside Lactic Acid (Blood Gas) 1.88 H 0.36-0.75 MMOL/L Blood Gas Temperature 37.0 35.5-37.0 CELSIUS Blood Gas Vent Mode RA ROOM AIR FiO2 21.0 % Blood Gas Specimen Comment RR White Cell Morphology Comment See comments Prothrombin Time 11.6 9.6-11.6 SEC Prothromb Time International Ratio 1.11 0.85-1.15 Hemoglobin A1c 7.9 H 4.0-6.0 % Estimated Average Glucose (eAG) 180 H 70-126 mg/dL Total Creatine Kinase 21 # 21-232 U/L Troponin I High Sensitivity 6 4-75 ng/L DIAGNOSTICS / RADIOLOGY: [place] [id number] [address] IMAGING REPORT Signed PATIENT: EDWAR LOPEZ JR MR#: [id number] : 1955 SEX: M AGE: 69 LOCATION: [facility] ORDER 44 STATUS: REG ER REPORT#: [id number] SERVICE 42 REASON: sepsis ORDERING PHYSICIAN: ESTELA FINCH MD PROCEDURE: CXR1VW - CHEST 1VW EXAM: CR Chest, 1 View. CLINICAL HISTORY: sepsis COMPARISON: None provided. FINDINGS: LUNGS: The lungs show no infiltrate or other acute finding. PLEURAL SPACES: No evidence of pleural effusion or pneumothorax. MEDIASTINUM: The cardiomediastinal silhouette is within normal limits. BONES: No aggressive appearing osseous lesion seen. IMPRESSION: No acute cardiopulmonary pathology is evident. /[place] DICTATED BY: JACK BERNSTEIN Jr., MD DATE: 01/10/252099 ELECTRONICALLY SIGNED BY: JACK BERNSTEIN Jr., MD DATE: 01/10/252099 [address] [address] IMAGING REPORT Signed PATIENT: EDWAR LOPEZ JR MR#: [id number] : 1955 SEX: M AGE: 69 [facility] STATUS: ADM IN REPORT#: [id number] SERVICE 53 REASON: cirrhosis ORDERING PHYSICIAN: ANTWAN LEARY MD PROCEDURE: ABD PELWWO - CT ABDOMEN/PELVIS W/WO CONTRAS EXAM: CT Abdomen and Pelvis without and with IV contrast. CLINICAL HISTORY: Cirrhosis. TECHNIQUE: Thin collimated axial CT images of the abdomen and pelvis were obtained, with sagittal and coronal reformatted images also submitted. A CT scan is done according to ALARA (As Low As Reasonably Achievable). CONTRAST: Omnipaque 350 COMPARISON: None. FINDINGS: Mild right pleural effusion. No focal abnormality within the pancreas, spleen, adrenals, or kidneys. The liver is small with diffuse surface nodularity, suggesting liver cirrhosis. The portal vein is replaced by a portal cavernoma. Multiple dilated tortuous venous collateral vessels in the abdomen and pelvis, predominantly in the right intrahepatic location. An 8 mm gallbladder calculus with no acute cholecystitis. Mild colonic diverticulosis with no acute diverticulitis. There is no obvious bowel wall thickening. Bowel loops are normal in caliber without evidence of obstruction or ileus. The appendix is normal. There is no abnormality within the urinary bladder. Unremarkable reproductive organs. Abdominal and pelvic vessels are patent. Scattered atherosclerotic wall calcifications in the abdominal aorta and its branches No lymphadenopathy. Mild ascites. Large right inguinal hernia containing omental fat and fluid. Small umbilical hernia containing omental fat and fluid. There is no acute osseous abnormality. Multilevel thoracolumbar spondylosis. IMPRESSIONS: Liver cirrhosis. Portal cavernoma with multiple dilated tortuous venous collateral vessels in the abdomen and pelvis. Cholelithiasis with no acute cholecystitis. Mild colonic diverticulosis with no acute diverticulitis. Mild ascites. Right inguinal and umbilical hernias. Mild right pleural effusion. /[place] DICTATED BY: JACK BERNSTEIN Jr., MD DATE: 01/11/25148 ELECTRONICALLY SIGNED BY: JACK BERNSTEIN Jr., MD DATE: 01/11/25148 ASSESSMENT: Spontaneous bacterial peritonitis 2/2 recurrent paracentesis(ascitic fluid WBC 16,324 on 01/02/2025) POA Alcoholic liver cirrhosis with ascites POA Acute Kidney injury in cirrhosis POA Uncontrolled Diabetes type 2 with hyperglycemia POA Severe Acute leukocytosis POA Acute on chronic anemia POA Recent Left leg cellulitis POA POA Pseudohyponatremia secondary to hyperglycemia POA Protein calorie malnutrition POA Umbilical hernia POA Right inguinal scrotal hernia POA PLAN: Continue Zosyn Monitor labs in the AM Continue medical management per primary team Continue pain medications as needed Blood culture results pending Urine culture results pending ATTESTATION BY PHYSICIAN I have seen and examined the patient. I reviewed the documentation, medical decision making, and treatment plan as noted by the resident physician above. I agree with the findings and plan of care. Jay Wesley MD, GERARDO MD Jan 11, 2025 13:54
--- NOTE | 2025-01-11 15:45 | PN ---
[facility] PROGRESS NOTE Date of Service: Jan 11, 2025 Time of Service: 15:08 SUBJECTIVE: This is a 69-year-old male past medical history of diabetes type 2, CKD stage III, alcohol liver cirrhosis with recurrent paracentesis, debility and umbilical hernia presents to the ED for evaluation of abnormal lab results.Patient reports he [facility] and lab works were done and was told his WBC was elevated and was instructed to come to the Ed for evaluation.Patient was recently admitted in this facility on 01/01/2025 for left lower extremity cellulitis and patient received antibiotic treatment and was discharged home on 01/03/2025.Patient states he had Paracentesis done on 01/02/2025 and 4.5 L of fluid was removed.Ascitic fluid WBC 16,324 ,RBC 235 and neutrophils Patient also reports he used to be a heavy cigarette smoker (1pack /day and a heavy alcohol drinker( 6pcks beer/day) x 40 years and quit on both 5 years ago. Patient denies fever,chills,cough,chest pain,palpitation,shortness of breath,nausea,vomiti ng,bloody emesis ,bloody stool,diarrhea and abdominal pain.Patient reports he feels fine he denies any symptoms .Primary nurse was at bedside during my evaluation. Latest vital signs temperature 97.5, heart rate 73, blood pressure 133/62 saturation 98% on room air. Labs: WBC 24 with negative left shift of neutrophils 90, hemoglobin 8, hematocrit 26, platelet count 298. Sodium 130, potassium 4.2, chloride 94, CO2 27, BUN 41, creatinine 1.6, GFR 46 glucose 419 lactic acid two total CK 21 troponin six albumin 2.8. ABG result: PH 7.46, CO2 35, PO2 82, bicarb 24, O2 saturation 95 base excess one. Urinalysis is significant with urine glucose above 1000 otherwise unremarkable. Chest x-ray result revealed no acute cardiopulmonary pathology is evident. While in the ER patient received, patient received Rocephin 1 g IV and insulin 15 units. We will admit patient for further medical management 01/11/2025: Patient was seen and evaluated bedside in ED 17. Case discussed with RN, no acute overnight events. He is awake alert oriented x3, denies abdominal pain, shortness of breath, chest pain, palpitations. Lab shows white count of 24.4, lactic acid 2.8, procal 0.14. CT abdomen and pelvis showed liver cirrhosis, portal cavernoma with multiple dilated tortuous venous collateral vessels in abdomen and pelvis. Pending paracentesis. Patient received 1st dose of albumin for spontaneous bacterial peritonitis yesterday. Rocephin was stopped, Patient was started on Zosyn and ID was consulted . REVIEW OF SYSTEMS CONSTITUTIONAL: Denies fevers, chills, or night sweats. No unintentional weight loss reported. NEUROLOGICAL: Denies headache, amaurosis fugax, motor weakness, sensory deficit, vertigo/spinning sensation, gait abnormalities, or tremors. ENT: No hearing loss, otalgia, otorrhea, rhinitis, rhinorrhea, hoarseness, or sore throat. CARDIOVASCULAR: Denies any exertional angina, dyspnea on exertion, orthopnea, paroxysmal nocturnal dyspnea, palpitations, life-threatening arrhythmias, claudication. PULMONARY: Denies any shortness of breath, cough, phlegm/sputum, hemoptysis, pleuritic chest pain. SLEEP: Denies morning headaches, daytime somnolence or napping. Denies difficulty falling asleep, staying asleep, waking from sleep. Denies knowledge of snoring. GASTROINTESTINAL: Denies any type of dysphagia to either liquids or solids. Denies nausea, vomiting, pyrosis, early satiety, abdominal pain, diarrhea, constipation, or changes in stool consistency or caliber. Denies coffee-ground emesis, hematemesis, hematochezia, or melanotic stools. GENITOURINARY: Denies frequency, urgency, nocturia, hematuria or incontinence (Storage/Irritative symptoms.) Low urinary stream, straining to void, urinary intermittency or hesitancy, splitting of the voiding stream, terminal dribbling. ENDOCRINOLOGIC: Denies polyuria, polydipsia, polyphagia or heat/cold intolerances. HEMATOLOGIC: Denies thrombophilia/previous clots, or coagulopathy/bleeding disorders. ONCOLOGIC: Denies personal history of malignancy. DERMATOLOGIC: Denies rashes or pruritus. PSYCHIATRIC: Denies any suicidal or homicidal ideation. Denies hallucinations. PHYSICAL EXAM GENERAL APPEARANCE: The patient is awake, alert, and oriented, in no acute cardiopulmonary distress. NEUROLOGICAL: Cranial nerves II-XII grossly intact. Motor is 5/5 in bilateral upper and lower extremities proximal to distal. No sensory deficits. HEENT: Face is symmetric. Pupils are equal and reactive. Extraocular movements are intact. NECK: Supple. No JVD. No thyromegaly. No submental, submandibular, pre- /postauricular, occipital or supraclavicular lymphadenopathy. CHEST: Normal chest expansion. No Telemetry. LUNGS: Absence of any rales, rhonchi or any wheezing. CARDIOVASCULAR: Regular. S1 and S2 normal. No appreciable rubs, murmurs or gallops. ABDOMEN: Soft, nontender and round . There is no rebound, voluntary guarding, or rigidity. : Deferred. No Rayo. EXTREMITIES: Left leg slightly swollen and with erythema recent left leg cellulitis . SKIN: Petechiae to both arms Vital Signs (last 8hr) Date Time Temp Pulse Resp B/P (MAP) Pulse Ox O2 Delivery O2 Flow Rate FiO2 01/11/25 11:20 97.5 71 17 113/48 98 Room Air* 0 21 01/11/25 08:02 98.1 80 12 105/42 100 Room Air* 0 21 LABS: Laboratory: Test 01/11/25 12:24 01/11/25 09:43 01/11/25 05:52 01/10/25 21:40 Range/Units Whole Blood Glucose 122 H 70-110 MG/DL Lactic Acid Level 1.6 0.8-2.5 mmol/L Ammonia 20 11-32 umol/L White Blood Count 24.4 H 4.8-10.8 K/uL Red Blood Count 2.51 L 4.50-6.20 MIL/uL Hemoglobin 8.7 L 14.0-18.0 g/dL Hematocrit 25.6 L 42-54 % Mean Corpuscular Volume 102.0 H 79-99 fL Mean Corpuscular Hemoglobin 34.7 H 27.0-33.0 pg Mean Corpuscular Hemoglobin Concent 34.0 32.0-36.0 g/dL Red Cell Distribution Width 16.5 H 11.0-15.5 % Platelet Count 329 130-400 K/uL Mean Platelet Volume 10.1 7.5-10.5 fL Immature Granulocyte % (Auto) 1.4 H 0-1 % Neutrophils (%) (Auto) 91.8 H 40.0-77.0 % Lymphocytes (%) (Auto) 2.7 L 21.0-51.0 % Monocytes (%) (Auto) 3.2 3.0-13.0 % Eosinophils (%) (Auto) 0.7 0.0-8.0 % Basophils (%) (Auto) 0.2 0.0-5.0 % Neutrophils # (Auto) 22.4 H 1.8-7.7 K/uL Lymphocytes # (Auto) 0.7 L 1.0-4.8 K/uL Monocytes # (Auto) 0.8 0.1-1.0 K/uL Eosinophils # (Auto) 0.17 0.00-0.70 K/uL Basophils # (Auto) 0.06 0.00-0.20 K/uL Absolute Immature Granulocyte (auto 0.35 0-1 K/uL Nucleated Red Blood Cells 0.0 0.0-0.19 % Sodium Level 136 136-145 mmol/L Potassium Level 3.9 3.5-5.1 mmol/L Chloride Level 100 L 101-111 mmol/L Carbon Dioxide Level 29 21-32 mmol/L Blood Urea Nitrogen 31 H 7-18 mg/dL Creatinine 1.1 0.5-1.3 mg/dL Glomerular Filtration Rate Calc 72 >90 mL/min Random Glucose 103 # 70-105 mg/dL Total Calcium 8.8 8.5-10.1 mg/dL Magnesium Level 1.70 L 1.80-2.40 mg/dL Total Bilirubin 0.7 0.2-1.0 mg/dL Direct Bilirubin 0.3 0.0-0.3 mg/dL Aspartate Amino Transf (AST/SGOT) 27 10-37 U/L Alanine Aminotransferase (ALT/SGPT) 31 12-78 U/L Alkaline Phosphatase 136 50-136 U/L Total Protein 7.1 6.0-8.3 g/dL Albumin 3.0 L 3.5-5.0 g/dL Procalcitonin 0.14 0.05-0.5 ng/mL Urine Color YELLOW YELLOW Urine Appearance CLEAR CLEAR Urine pH 6.0 5.0-8.0 Urine Specific [place] 1.009 1.001-1.031 Urine Protein NEGATIVE NEGATIVE mg/dL Urine Glucose (UA) >=1000 H NEGATIVE mg/dL Urine Ketones NEGATIVE NEGATIVE mg/dL Urine Occult Blood NEGATIVE NEGATIVE Urine Nitrate NEGATIVE NEGATIVE Urine Bilirubin NEGATIVE NEGATIVE mg/dL Urine Urobilinogen 0.2 0.2-1.0 mg/dL Urine Leukocyte Esterase NEGATIVE NEGATIVE [place]/uL Urine RBC None 0-1 /HPF Urine WBC 0-1 0-1 /HPF Urine Squamous Epithelial Cells FEW 0-2 /HPF Urine Bacteria RARE None Seen /HPF Urine Hyaline Casts 0-1 0-1 /LPF /LPF Urine Other Casts 1 None Seen /LPF Test 01/10/25 19:56 01/10/25 17:44 Range/Units Blood Gas Specimen Type Arterial Arterial Blood pH 7.466 H 7.350-7.450 Arterial Blood Partial Pressure CO2 35 35-48 mmHg Arterial Blood Partial Pressure O2 82.7 L 83.0-108.0 mmHg Arterial Blood HCO3 24.5 21.0-28.0 mmol/L Arterial Blood Oxygen Saturation 95.9 94.0-98.0 % Arterial Blood Base Excess 1.0 -2.0-3.0 mmol/L Hemoglobin (Blood Gas) 9.6 L 13.5-17.5 g/dL Sodium (Blood Gas) 129 L 136-145 MMOL/L Bedside Potassium (Blood Gas) 4.4 3.4-4.5 MMOL/L Bedside Chloride (Blood Gas) 97 L 98-107 MMOL/L Bedside Glucose (Blood Gas) 430 *H 65-95 MG/DL Bedside Ionized Calcium (Blood Gas) 1.20 1.15-1.33 MMOL/L Bedside Lactic Acid (Blood Gas) 1.88 H 0.36-0.75 MMOL/L Blood Gas Temperature 37.0 35.5-37.0 CELSIUS Blood Gas Vent Mode RA ROOM AIR FiO2 21.0 % Blood Gas Specimen Comment RR White Cell Morphology Comment See comments Prothrombin Time 11.6 9.6-11.6 SEC Prothromb Time International Ratio 1.11 0.85-1.15 Hemoglobin A1c 7.9 H 4.0-6.0 % Estimated Average Glucose (eAG) 180 H 70-126 mg/dL Total Creatine Kinase 21 # 21-232 U/L Troponin I High Sensitivity 6 4-75 ng/L Current Medications Medications (Trade) Dose Ordered Sig/Azael Route PRN Reason Start Time Stop Time Status Last Admin Dose Admin Acetaminophen (TYLenol 325MG TAB) 650 mg Q4H PRN PO MILD PAIN (1-3) 01/11/25 00:00 02/10/25 00:00 Acetaminophen (TYLenol 325MG TAB) 650 mg Q6H PRN PO TEMPERATURE GREATER THAN 101.5 01/11/25 00:00 02/10/25 00:00 Albumin Human 100 ml @ 0 mls/hr Q6H IV 01/11/25 00:00 01/11/25 06:01 DC 01/11/25 06:33 100 MLS/HR Ceftriaxone Sodium 1 gm/ Sodium Chloride 50 ml @ 100 mls/hr Q24H IV 01/11/25 00:00 01/10/25 23:55 DC Ceftriaxone Sodium (ROCEphine 1G INJ) 1 gm ONCE IVPB 01/10/25 19:00 01/10/25 23:46 DC 01/10/25 22:20 1 GM Ceftriaxone Sodium (ROCEphine 1G INJ) 1 gm Q24H IVPB 01/11/25 23:45 01/11/25 10:20 DC Dextrose (D50w) 50 ml AD PRN IV HYPOGLYCEMIA PROTOCOL 01/11/25 00:00 02/10/25 00:00 Glucagon (Glucagon 1mg Kit) 1 mg AD PRN IM HYPOGLYCEMIA PROTOCOL 01/11/25 00:00 02/10/25 00:00 Insulin Human Regular (humuLIN R 100 UNIT/ML 3ML) INSULIN SLIDING SCAL... Q4H SQ 01/11/25 00:00 02/10/25 00:00 Magnesium Sulfate 50 ml @ 0 mls/hr PROTOCOL PRN IV OTHER [SEE ORDER COMMENTS] 01/11/25 00:00 02/10/25 00:00 Ondansetron HCl (zoFRAN 4MG INJ) 4 mg Q6H PRN IV NAUSEA/VOMITING 01/11/25 00:00 02/10/25 00:00 Pantoprazole Sodium (PROTonix 40MG TAB) 40 mg DAILY PO 01/11/25 09:00 02/10/25 08:59 01/11/25 09:35 40 MG Piperacillin Sod/ Tazobactam Sod (Zosyn 3.375gm+NS 50ml) 3.375 gm Q8H IVPB 01/11/25 10:30 01/21/25 10:29 01/11/25 12:26 3.375 GM Potassium Chloride 100 ml @ 100 mls/hr AD PRN IV POTASSIUM PROTOCOL 01/11/25 00:00 02/10/25 00:00 Potassium Chloride (K-Dur/Klor-Con 20meq) 20 meq AD PRN PO POTASSIUM PROTOCOL 01/11/25 00:00 02/10/25 00:00 Potassium Chloride (KCl 10% Elixir 20meq/15ml) 20 meq AD PRN PO POTASSIUM PROTOCOL 01/11/25 00:00 02/10/25 00:00 DIAGNOSTICS / RADIOLOGY: [facility] [address] [id number] IMAGING REPORT Signed PATIENT: EDWAR LOPEZ JR MR#: [id number] : 1955 SEX: M AGE: 69 LOCATION: [facility] ORDER 44 STATUS: REG ER REPORT#: [id number] SERVICE 42 REASON: sepsis ORDERING PHYSICIAN: ESTELA FINCH MD PROCEDURE: CXR1VW - CHEST 1VW EXAM: CR Chest, 1 View. CLINICAL HISTORY: sepsis COMPARISON: None provided. FINDINGS: LUNGS: The lungs show no infiltrate or other acute finding. PLEURAL SPACES: No evidence of pleural effusion or pneumothorax. MEDIASTINUM: The cardiomediastinal silhouette is within normal limits. BONES: No aggressive appearing osseous lesion seen. IMPRESSION: No acute cardiopulmonary pathology is evident. /[place] DICTATED BY: JACK BERNSTEIN Jr., MD DATE: 01/10/252099 ELECTRONICALLY SIGNED BY: JACK BERNSTEIN Jr., MD DATE: 01/10/252099 [facility] [address] [place] [id number] IMAGING REPORT Signed PATIENT: EDWAR LOPEZ JR MR#: [id number] : 1955 SEX: M AGE: 69 LOCATION: [facility] ORDER 53 STATUS: ADM IN REPORT#: [id number] SERVICE 53 REASON: cirrhosis ORDERING PHYSICIAN: ANTWAN LEARY MD PROCEDURE: ABD PELWWO - CT ABDOMEN/PELVIS W/WO CONTRAS EXAM: CT Abdomen and Pelvis without and with IV contrast. CLINICAL HISTORY: Cirrhosis. TECHNIQUE: Thin collimated axial CT images of the abdomen and pelvis were obtained, with sagittal and coronal reformatted images also submitted. A CT scan is done according to ALARA (As Low As Reasonably Achievable). CONTRAST: Omnipaque 350 COMPARISON: None. FINDINGS: Mild right pleural effusion. No focal abnormality within the pancreas, spleen, adrenals, or kidneys. The liver is small with diffuse surface nodularity, suggesting liver cirrhosis. The portal vein is replaced by a portal cavernoma. Multiple dilated tortuous venous collateral vessels in the abdomen and pelvis, predominantly in the right intrahepatic location. An 8 mm gallbladder calculus with no acute cholecystitis. Mild colonic diverticulosis with no acute diverticulitis. There is no obvious bowel wall thickening. Bowel loops are normal in caliber without evidence of obstruction or ileus. The appendix is normal. There is no abnormality within the urinary bladder. Unremarkable reproductive organs. Abdominal and pelvic vessels are patent. Scattered atherosclerotic wall calcifications in the abdominal aorta and its branches No lymphadenopathy. Mild ascites. Large right inguinal hernia containing omental fat and fluid. Small umbilical hernia containing omental fat and fluid. There is no acute osseous abnormality. Multilevel thoracolumbar spondylosis. IMPRESSIONS: Liver cirrhosis. Portal cavernoma with multiple dilated tortuous venous collateral vessels in the abdomen and pelvis. Cholelithiasis with no acute cholecystitis. Mild colonic diverticulosis with no acute diverticulitis. Mild ascites. Right inguinal and umbilical hernias. Mild right pleural effusion. /[place] DICTATED BY: JACK BERNSTEIN Jr., MD DATE: 01/11/25148 ELECTRONICALLY SIGNED BY: JACK BERNSTEIN Jr., MD DATE: 01/11/25148 ASSESSMENT: Spontaneous bacterial peritonitis 2/2 recurrent paracentesis(ascitic fluid WBC 16,324 on 01/02/2025) POA Alcoholic liver cirrhosis with ascites POA Acute Kidney injury in cirrhosis POA Uncontrolled Diabetes type 2 with hyperglycemia POA Severe Acute leukocytosis POA Acute on chronic anemia POA Recent Left leg cellulitis POA Pseudohyponatremia secondary to hyperglycemia POA Protein calorie malnutrition POA Umbilical hernia POA Right inguinal scrotal hernia POA PLAN: Spontaneous bacterial peritonitis 2/2 recurrent paracentesis(ascitic fluid WBC 16,324 on 01/02/2025) POA * Patient is known case of liver cirrhosis with recurrent paracentesis and the recent one done on 01/02/2025 * Cell count from last paracentesis shows WBC count 17076, neutrophils 86, RBC 235 * On presentation CBC showed white count of 24.5, started on Rocephin 1 g IV on 01/10/2025 * Received 1st dose of albumin for prophylaxis of spontaneous bacterial peritonitis. * IV Rocephin was stopped, started on IV Zosyn 3.375 g day 1 on 01/11/2025. * On board, we will follow up with the recommendations. Alcoholic liver cirrhosis with ascites POA * Patient is known case of alcoholic liver cirrhosis with MELD score 10. * Patient had therapeutic paracentesis on 01/02/2025, cell count showed WBC 11251, neutrophils 86, RBC 235 * Patient was discharged on oral antibiotics. * We will reconcile home meds once medlist available Severe Acute leukocytosis POA * Patient came to ED for evaluation of increased white count which was recommended by his PCP * On arrival CBC showed white count of 24.5 * Continue IV antibiotics, we will trend WBC. Recent Left leg cellulitis POA * Patient was admitted to this facility for lower extremity cellulitis on 01/01/2025 * He was discharged home on Ceftin 500 mg p.o. twice daily fluconazole 200 mg p.o. daily * Patient admitted that he did not complete the prescribed antibiotics after discharge * New IV Zosyn 3.375 g day 1next * ID on board we will follow up with the recommendations Protonix 40 mg IV daily for GI prophylaxis We will replace electrolytes as needed per protocol We will start on insulin sliding scale q.4 hours with hypoglycemia protocol We will add prn medication for fever,pain,cough , nausea and vomiting ATTESTATION BY PHYSICIAN I have seen and examined the patient. I reviewed the documentation, medical decision making, and treatment plan as noted by the resident physician above. I agree with the findings and plan of care. KATHY KING MD, ADIL SHAH QUADRI MD Jan 11, 2025 15:45
--- NOTE | 2025-01-11 17:00 | CONS ---
GASTROENTEROLOGY CONSULTATION NOTE Date of Consultation: Jan 11, 2025 Time of Consultation: 16:55 History of Present Illness: 69-year-old with past medical history of chronic kidney disease stage III, alcoholic liver cirrhosis and recurrent paracentesis presents to the emergency room for evaluation of abnormal labs and generalized weakness. We are consulted due to concern for spontaneous bacterial peritonitis due to recurrent paracentesis. Patient seen and examined at bedside. Patient is awake alert and oriented x 3. He reports last EtOH intake was 5 years ago. Abdomen is rounded and distended. Per RN, patient is scheduled to undergo paracentesis on Tuesday. Patient denies any fever chills nausea or vomiting, hematochezia/melena. Review of Systems: CONSTITUTIONAL: No malaise or change in sensation of wellbeing. ENMT: No rhinorrhea, otorrhea, sinus pain, ear ache. CARDIOVASCULAR: No angina, palpitations, orthopnea or paroxysmal dyspnea. RESPIRATORY: No SOB. GASTROINTESTINAL: No abdominal pain, nausea, vomiting, diarrhea, hematemesis, melena or change in the patient's habitual bowel movements consistency/number. GENITOURINARY: No dysuria, hematuria or change in bladder continence. MUSCULOSKELETAL: No new muscle pain or decrease in muscular strength. No new joint swelling, redness or tenderness. SKIN: No new rash. Past Medical History: [ ] Past Surgical History: [ ] Past Social History: [ ] Family History: [ ] Coded Allergies: No Known Allergies (Unverified Allergy, Unknown, 10/13/21) Physical Exam: GEN: Awake, alert, oriented in person, time and place, and in no acute distress. HEENT: No sinus tenderness. Tympanic membranes were not examined. No rhinorrhea. Oral pharyngeal mucosa is pink, moist and within normal limits. Neck is supple with no cervical lymphadenopathy, thyromegaly or JVD. CHEST: Inspection, palpation and percussion of the chest were unremarkable. Lung auscultation revealed normal breath sounds bilaterally. CARDIAC: PMI is within normal limits. Heart sounds are regular. Normal S1, S2. No gallop or murmur. ABD: Soft, non-tender and not distended. No peritoneal signs on palpation. No organomegaly. Normal bowel sounds. EXT: No cyanosis or clubbing. No edema. SKIN: Intact. No rashes. JOINTS: No evidence of synovitis or acute arthritis. NEURO: Alert and oriented to name, place and person. Cranial nerve examination is unremarkable. No focal motor deficits. Normal speech. Gait is normal. Strength is normal. Vital Sign (Last 24 Hours) 01/11/25 16:52 Temp 98.2 Pulse 71 Resp 12 B/P (MAP) 117/52 Pulse Ox 100 O2 Delivery Room Air* O2 Flow Rate 0 FiO2 21 Intake & Output (last 24hrs) 01/10/25 01/10/25 01/11/25 15:00 23:00 07:00 Output Total 550 ml Balance -550 ml Laboratory: [ ] Laboratory: Test 01/11/25 16:49 01/11/25 09:43 01/11/25 05:52 01/10/25 21:40 Range/Units Whole Blood Glucose 136 H 70-110 MG/DL Lactic Acid Level 1.6 0.8-2.5 mmol/L Ammonia 20 11-32 umol/L White Blood Count 24.4 H 4.8-10.8 K/uL Red Blood Count 2.51 L 4.50-6.20 MIL/uL Hemoglobin 8.7 L 14.0-18.0 g/dL Hematocrit 25.6 L 42-54 % Mean Corpuscular Volume 102.0 H 79-99 fL Mean Corpuscular Hemoglobin 34.7 H 27.0-33.0 pg Mean Corpuscular Hemoglobin Concent 34.0 32.0-36.0 g/dL Red Cell Distribution Width 16.5 H 11.0-15.5 % Platelet Count 329 130-400 K/uL Mean Platelet Volume 10.1 7.5-10.5 fL Immature Granulocyte % (Auto) 1.4 H 0-1 % Neutrophils (%) (Auto) 91.8 H 40.0-77.0 % Lymphocytes (%) (Auto) 2.7 L 21.0-51.0 % Monocytes (%) (Auto) 3.2 3.0-13.0 % Eosinophils (%) (Auto) 0.7 0.0-8.0 % Basophils (%) (Auto) 0.2 0.0-5.0 % Neutrophils # (Auto) 22.4 H 1.8-7.7 K/uL Lymphocytes # (Auto) 0.7 L 1.0-4.8 K/uL Monocytes # (Auto) 0.8 0.1-1.0 K/uL Eosinophils # (Auto) 0.17 0.00-0.70 K/uL Basophils # (Auto) 0.06 0.00-0.20 K/uL Absolute Immature Granulocyte (auto 0.35 0-1 K/uL Nucleated Red Blood Cells 0.0 0.0-0.19 % Sodium Level 136 136-145 mmol/L Potassium Level 3.9 3.5-5.1 mmol/L Chloride Level 100 L 101-111 mmol/L Carbon Dioxide Level 29 21-32 mmol/L Blood Urea Nitrogen 31 H 7-18 mg/dL Creatinine 1.1 0.5-1.3 mg/dL Glomerular Filtration Rate Calc 72 >90 mL/min Random Glucose 103 # 70-105 mg/dL Total Calcium 8.8 8.5-10.1 mg/dL Magnesium Level 1.70 L 1.80-2.40 mg/dL Total Bilirubin 0.7 0.2-1.0 mg/dL Direct Bilirubin 0.3 0.0-0.3 mg/dL Aspartate Amino Transf (AST/SGOT) 27 10-37 U/L Alanine Aminotransferase (ALT/SGPT) 31 12-78 U/L Alkaline Phosphatase 136 50-136 U/L Total Protein 7.1 6.0-8.3 g/dL Albumin 3.0 L 3.5-5.0 g/dL Procalcitonin 0.14 0.05-0.5 ng/mL Urine Color YELLOW YELLOW Urine Appearance CLEAR CLEAR Urine pH 6.0 5.0-8.0 Urine Specific [place] 1.009 1.001-1.031 Urine Protein NEGATIVE NEGATIVE mg/dL Urine Glucose (UA) >=1000 H NEGATIVE mg/dL Urine Ketones NEGATIVE NEGATIVE mg/dL Urine Occult Blood NEGATIVE NEGATIVE Urine Nitrate NEGATIVE NEGATIVE Urine Bilirubin NEGATIVE NEGATIVE mg/dL Urine Urobilinogen 0.2 0.2-1.0 mg/dL Urine Leukocyte Esterase NEGATIVE NEGATIVE [place]/uL Urine RBC None 0-1 /HPF Urine WBC 0-1 0-1 /HPF Urine Squamous Epithelial Cells FEW 0-2 /HPF Urine Bacteria RARE None Seen /HPF Urine Hyaline Casts 0-1 0-1 /LPF /LPF Urine Other Casts 1 None Seen /LPF Test 01/10/25 19:56 01/10/25 17:44 Range/Units Blood Gas Specimen Type Arterial Arterial Blood pH 7.466 H 7.350-7.450 Arterial Blood Partial Pressure CO2 35 35-48 mmHg Arterial Blood Partial Pressure O2 82.7 L 83.0-108.0 mmHg Arterial Blood HCO3 24.5 21.0-28.0 mmol/L Arterial Blood Oxygen Saturation 95.9 94.0-98.0 % Arterial Blood Base Excess 1.0 -2.0-3.0 mmol/L Hemoglobin (Blood Gas) 9.6 L 13.5-17.5 g/dL Sodium (Blood Gas) 129 L 136-145 MMOL/L Bedside Potassium (Blood Gas) 4.4 3.4-4.5 MMOL/L Bedside Chloride (Blood Gas) 97 L 98-107 MMOL/L Bedside Glucose (Blood Gas) 430 *H 65-95 MG/DL Bedside Ionized Calcium (Blood Gas) 1.20 1.15-1.33 MMOL/L Bedside Lactic Acid (Blood Gas) 1.88 H 0.36-0.75 MMOL/L Blood Gas Temperature 37.0 35.5-37.0 CELSIUS Blood Gas Vent Mode RA ROOM AIR FiO2 21.0 % Blood Gas Specimen Comment RR White Cell Morphology Comment See comments Prothrombin Time 11.6 9.6-11.6 SEC Prothromb Time International Ratio 1.11 0.85-1.15 Hemoglobin A1c 7.9 H 4.0-6.0 % Estimated Average Glucose (eAG) 180 H 70-126 mg/dL Total Creatine Kinase 21 # 21-232 U/L Troponin I High Sensitivity 6 4-75 ng/L Current Medications Medications (Trade) Dose Ordered Sig/Azael Route PRN Reason Start Time Stop Time Status Last Admin Dose Admin Acetaminophen (TYLenol 325MG TAB) 650 mg Q4H PRN PO MILD PAIN (1-3) 01/11/25 00:00 02/10/25 00:00 Acetaminophen (TYLenol 325MG TAB) 650 mg Q6H PRN PO TEMPERATURE GREATER THAN 101.5 01/11/25 00:00 02/10/25 00:00 Albumin Human 100 ml @ 0 mls/hr Q6H IV 01/11/25 00:00 01/11/25 06:01 DC 01/11/25 06:33 100 MLS/HR Ceftriaxone Sodium 1 gm/ Sodium Chloride 50 ml @ 100 mls/hr Q24H IV 01/11/25 00:00 01/10/25 23:55 DC Ceftriaxone Sodium (ROCEphine 1G INJ) 1 gm ONCE IVPB 01/10/25 19:00 01/10/25 23:46 DC 01/10/25 22:20 1 GM Ceftriaxone Sodium (ROCEphine 1G INJ) 1 gm Q24H IVPB 01/11/25 23:45 01/11/25 10:20 DC Dextrose (D50w) 50 ml AD PRN IV HYPOGLYCEMIA PROTOCOL 01/11/25 00:00 02/10/25 00:00 Glucagon (Glucagon 1mg Kit) 1 mg AD PRN IM HYPOGLYCEMIA PROTOCOL 01/11/25 00:00 02/10/25 00:00 Insulin Human Regular (humuLIN R 100 UNIT/ML 3ML) INSULIN SLIDING SCAL... Q4H SQ 01/11/25 00:00 02/10/25 00:00 Magnesium Sulfate 50 ml @ 0 mls/hr PROTOCOL PRN IV OTHER [SEE ORDER COMMENTS] 01/11/25 00:00 02/10/25 00:00 Ondansetron HCl (zoFRAN 4MG INJ) 4 mg Q6H PRN IV NAUSEA/VOMITING 01/11/25 00:00 02/10/25 00:00 Pantoprazole Sodium (PROTonix 40MG TAB) 40 mg DAILY PO 01/11/25 09:00 02/10/25 08:59 01/11/25 09:35 40 MG Piperacillin Sod/ Tazobactam Sod (Zosyn 3.375gm+NS 50ml) 3.375 gm Q8H IVPB 01/11/25 10:30 01/21/25 10:29 01/11/25 12:26 3.375 GM Potassium Chloride 100 ml @ 100 mls/hr AD PRN IV POTASSIUM PROTOCOL 01/11/25 00:00 02/10/25 00:00 Potassium Chloride (K-Dur/Klor-Con 20meq) 20 meq AD PRN PO POTASSIUM PROTOCOL 01/11/25 00:00 02/10/25 00:00 Potassium Chloride (KCl 10% Elixir 20meq/15ml) 20 meq AD PRN PO POTASSIUM PROTOCOL 01/11/25 00:00 02/10/25 00:00 Diagnostics / Radiology: [COPY/PASTE HERE IF NO REPORTS PLEASE DELETE SECTION] Assessment: Liver cirrhosis Ascites Concern for spontaneous bacterial peritonitis Leukocytosis Plan: Recommend therapeutic paracentesis. If more than 5 liters are removed, please give albumin 50 g IV Send ascites fluid for cell count with differential, albumin, total protein, cultures,and cytology Ceftriaxone 1 g IV q 24 hours for infection prophylaxis Will continue to monitor closely CLAUDIO ESTEBANP Jan 11, 2025 17:00
--- NOTE | 2025-01-11 21:55 | CONS ---
REFERRING PHYSICIAN: Dr. Mukherjee. REASON FOR CONSULTATION: Renal failure. HISTORY OF PRESENT ILLNESS: A 69-year-old male with a history of diabetes mellitus and hypertension. He has a history of known cirrhosis. The patient with previous paracentesis. The patient was just recently admitted to the hospital with cellulitis and was found to have significant renal dysfunction. The patient presents to the hospital with complaints of increasing abdominal pain. In the Emergency Room, the patient was found to have significant leukocytosis and started on antibiotics. The patient with ascites and is scheduled for paracentesis. He has had domrn-sp-yuhaytc renal failure in the hospital and he is being seen in consultation for all the above. PAST MEDICAL HISTORY: Diabetes mellitus, hypertension, cirrhosis. PAST SURGICAL HISTORY: Paracentesis. SOCIAL HISTORY: He has a history of alcohol use. FAMILY HISTORY: No renal disease in the family. ALLERGIES: There are no allergies. MEDICATIONS: Noted. REVIEW OF SYSTEMS: GENERAL: The patient is feeling weak and tired. HEENT: No change in vision. No change in hearing. CARDIOVASCULAR: There are no current chest pains or palpitations. PULMONARY: He has got chronic shortness of breath. GASTROINTESTINAL: As described above. MUSCULOSKELETAL: Complains of weakness. NEUROLOGIC: No seizures or focal deficits. PSYCHIATRIC: No history of hallucinations or psychosis. ENDOCRINE: Diabetes mellitus. No history of thyroid disease. HEME: History of anemia. No history of malignancy. PHYSICAL EXAMINATION: VITAL SIGNS: Blood pressure is 105/42, pulse 80, he is afebrile. GENERAL: Chronically ill male, elderly, laying in bed on the medical floor. HEENT: Head is atraumatic. Pupils are equal, round, and reactive to light. Oropharynx without exudate. Nares are clear. NECK: There is no JVP. There is no thyromegaly. No masses. CARDIOVASCULAR: Regular. There is no S3 or S4 gallop. LUNGS: Coarse with equal thoracic movement. ABDOMEN: Soft. He does have ascites. EXTREMITIES: Reveal no clubbing, no cyanosis. NEUROLOGICAL: He is awake. He is alert. He is oriented. SKIN: Reveals no rashes or nodules. BACK: There is no CVA tenderness. No back deformities. LABORATORY DATA: CT scan reveals cirrhosis with the ascites. Sodium is 136, BUN 31, creatinine 1.1. Hemoglobin 8.7, hematocrit 25, white cell count is 24,000. Urinalysis revealed glucose in the urine. IMPRESSION: * Crdaa-es-urrggbj renal failure. * Peritonitis. * Cirrhosis. * Anemia. * Hypertension. PLAN: The patient does present with significant renal dysfunction. Workup is consistent with peritonitis and he remains on the antibiotics. The patient is scheduled for the paracentesis. He does have underlying renal dysfunction. Creatinine is noted. We will continue to monitor chemistries closely. Electrolytes have all been aggressively repleted. The patient does have significant anemia. We will check iron levels for completeness. We will continue to follow closely. All labs will be repeated in the morning. TID: [id number] RECEIPT: [id number]
[2025-01-12] VITALS (11 sets, daily range): BP systolic 103–145; BP diastolic 53–72; PULSE 78–107; RESP 16–18; TEMP 97.6–98.8; O2SAT 96–100
--- NOTE | 2025-01-12 00:54 | NUR ---
REPORT GIVEN TO WILFRED AGUILERA
[2025-01-12 05:18] LABS: IMMATURE GRANULOCYTE ABSOLUTE 0.21 K/uL (0-1); NUCLEATED RED BLOOD CELLS 0.0 % (0.0-0.19); PLATELET COUNT (AUTO) 347 K/uL (130-400); RED BLOOD CELL COUNT(AUTO) 2.55 MIL/uL (4.50-6.20); RED CELL DISTRIBUTION WIDTH 16.9 % (11.0-15.5); WHITE BLOOD COUNT (AUTO) 14.1 K/uL (4.8-10.8)
[2025-01-12 05:39] LABS: % IRON SATURATION 12.0 % (30-44); IRON, SERUM 26.0 mcg/dL (65-175)
[2025-01-12 05:52] LABS: CREATININE 1.0 mg/dL (0.5-1.3); GLOMERULAR FILTR. RATE CALC 81.0 mL/min (>90); GLUCOSE,RANDOM 87.0 mg/dL (70-105); PHOSPHORUS 2.6 mg/dL (2.5-4.9); SODIUM SERUM 144.0 mmol/L (136-145); UREA NITROGEN, BLOOD 22.0 mg/dL (7-18)
--- NOTE | 2025-01-12 10:20 | PN ---
NEPHROLOGY PROGRESS NOTE Date/Time Patient Seen: Jan 12, 2025 SUBJECTIVE: This is 69-year-old male with a history of diabetes mellitus and hypertension. He has a history of known cirrhosis. The patient with previous paracentesis. The patient was just recently admitted to the hospital with cellulitis and was found to have significant renal dysfunction. The patient presents to the hospital with complaints of increasing abdominal pain. In the Emergency Room, the patient was found to have significant leukocytosis and started on antibiotics. The patient with ascites and is scheduled for paracentesis. He has had euzdi-gp-vnalopy renal failure in the hospital and he is being seen in consultation for all the above. The patient does present with significant renal dysfunction. Workup is consistent with peritonitis and he remains on the antibiotics. The patient is scheduled for the paracentesis on Tuesday He does have underlying renal dysfunction. Creatinine is noted. Blood pressure is under adequate control. Hemoglobin was noted We will continue to monitor chemistries closely. REVIEW OF SYSTEMS: GENERAL: Negative for any nausea, vomiting, fevers, chills, or weight loss. NEUROLOGIC: Negative for any blurry vision, blind spots, double vision, facial asymmetry, dysphagia, dysarthria, hemiparesis, hemisensory deficits, vertigo, ataxia. HEENT: Negative for any head trauma, neck trauma, neck stiffness, photophobia, phonophobia, sinusitis, rhinitis. CARDIAC: Negative for any chest pain, dyspnea on exertion, paroxysmal nocturnal dyspnea, peripheral edema. PULMONARY: Negative for any shortness of breath, wheezing, COPD, or TB exposure. GASTROINTESTINAL: Negative for any abdominal pain, nausea, vomiting, bright red blood per rectum, melena. GENITOURINARY: Negative for any dysuria, hematuria, incontinence. INTEGUMENTARY: Negative for any rashes, cuts, insect bites. RHEUMATOLOGIC: Negative for any joint pains, photosensitive rashes, history of vasculitis or kidney problems. HEMATOLOGIC: Negative for any abnormal bruising, frequent infections or bleeding. Vital Signs (last 8hr) Date Time Temp Pulse Resp B/P (MAP) Pulse Ox O2 Delivery O2 Flow Rate FiO2 01/12/25 07:26 98.4 87 18 112/58 99 Room Air 01/12/25 03:48 98.2 87 16 126/67 100 Room Air PHYSICAL EXAM: GENERAL: Alert and oriented x 3. No acute distress. Well-nourished. EYES: EOMI. Anicteric. HENT: Moist mucous membranes. No scleral icterus. No cervical lymphadenopathy. LUNGS: Clear to auscultation bilaterally. No accessory muscle use. CARDIOVASCULAR: Regular rate and rhythm. No murmur. No JVD. ABDOMEN: Soft, non-tender and non-distended. No palpable masses. EXTREMITIES: No edema. Non-tender. SKIN: No rashes or lesions. Warm. NEUROLOGIC: No focal neurological deficits. CN II-XII grossly intact, but not individually tested. PSYCHIATRIC: Cooperative. Appropriate mood and affect. Current Medications Medications (Trade) Dose Ordered Sig/Azael Route PRN Reason Start Time Stop Time Status Last Admin Dose Admin Acetaminophen (TYLenol 325MG TAB) 650 mg Q4H PRN PO MILD PAIN (1-3) 01/11/25 00:00 02/10/25 00:00 Acetaminophen (TYLenol 325MG TAB) 650 mg Q6H PRN PO TEMPERATURE GREATER THAN 101.5 01/11/25 00:00 02/10/25 00:00 Albumin Human 100 ml @ 0 mls/hr Q6H IV 01/11/25 00:00 01/11/25 06:01 DC 01/11/25 06:33 100 MLS/HR Ceftriaxone Sodium 1 gm/ Sodium Chloride 50 ml @ 100 mls/hr Q24H IV 01/11/25 00:00 01/10/25 23:55 DC Ceftriaxone Sodium (ROCEphine 1G INJ) 1 gm ONCE IVPB 01/10/25 19:00 01/10/25 23:46 DC 01/10/25 22:20 1 GM Ceftriaxone Sodium (ROCEphine 1G INJ) 1 gm Q24H IVPB 01/11/25 23:45 01/11/25 10:20 DC Dextrose (D50w) 50 ml AD PRN IV HYPOGLYCEMIA PROTOCOL 01/11/25 00:00 02/10/25 00:00 Glucagon (Glucagon 1mg Kit) 1 mg AD PRN IM HYPOGLYCEMIA PROTOCOL 01/11/25 00:00 02/10/25 00:00 Insulin Human Regular (humuLIN R 100 UNIT/ML 3ML) INSULIN SLIDING SCAL... Q4H SQ 01/11/25 00:00 02/10/25 00:00 Magnesium Sulfate 50 ml @ 0 mls/hr PROTOCOL PRN IV OTHER [SEE ORDER COMMENTS] 01/11/25 00:00 02/10/25 00:00 Ondansetron HCl (zoFRAN 4MG INJ) 4 mg Q6H PRN IV NAUSEA/VOMITING 01/11/25 00:00 02/10/25 00:00 Pantoprazole Sodium (PROTonix 40MG TAB) 40 mg DAILY PO 01/11/25 09:00 02/10/25 08:59 01/12/25 10:10 40 MG Piperacillin Sod/ Tazobactam Sod (Zosyn 3.375gm+NS 50ml) 3.375 gm Q8H IVPB 01/11/25 10:30 01/21/25 10:29 01/12/25 10:10 3.375 GM Potassium Chloride 100 ml @ 100 mls/hr AD PRN IV POTASSIUM PROTOCOL 01/11/25 00:00 02/10/25 00:00 Potassium Chloride (K-Dur/Klor-Con 20meq) 20 meq AD PRN PO POTASSIUM PROTOCOL 01/11/25 00:00 02/10/25 00:00 Potassium Chloride (KCl 10% Elixir 20meq/15ml) 20 meq AD PRN PO POTASSIUM PROTOCOL 01/11/25 00:00 02/10/25 00:00 LABORATORY: [ ] Hematology Labs: Test 01/12/25 05:05 01/10/25 17:44 Range/Units White Blood Count 14.1 #H 4.8-10.8 K/uL Red Blood Count 2.55 L 4.50-6.20 MIL/uL Hemoglobin 8.7 L 14.0-18.0 g/dL Hematocrit 25.7 L 42-54 % Mean Corpuscular Volume 100.8 H 79-99 fL Mean Corpuscular Hemoglobin 34.1 H 27.0-33.0 pg Mean Corpuscular Hemoglobin Concent 33.9 32.0-36.0 g/dL Red Cell Distribution Width 16.9 H 11.0-15.5 % Platelet Count 347 130-400 K/uL Mean Platelet Volume 9.7 7.5-10.5 fL Immature Granulocyte % (Auto) 1.5 H 0-1 % Neutrophils (%) (Auto) 83.6 H 40.0-77.0 % Lymphocytes (%) (Auto) 8.0 L 21.0-51.0 % Monocytes (%) (Auto) 4.9 3.0-13.0 % Eosinophils (%) (Auto) 1.4 0.0-8.0 % Basophils (%) (Auto) 0.6 0.0-5.0 % Neutrophils # (Auto) 11.8 H 1.8-7.7 K/uL Lymphocytes # (Auto) 1.1 1.0-4.8 K/uL Monocytes # (Auto) 0.7 0.1-1.0 K/uL Eosinophils # (Auto) 0.20 0.00-0.70 K/uL Basophils # (Auto) 0.08 0.00-0.20 K/uL Absolute Immature Granulocyte (auto 0.21 0-1 K/uL Nucleated Red Blood Cells 0.0 0.0-0.19 % White Cell Morphology Comment See comments Chemistry Labs: Test 01/12/25 05:05 01/12/25 03:52 01/11/25 09:43 01/11/25 05:52 Range/Units Sodium Level 144 136-145 mmol/L Potassium Level 3.9 3.5-5.1 mmol/L Chloride Level 105 101-111 mmol/L Carbon Dioxide Level 27 21-32 mmol/L Blood Urea Nitrogen 22 H 7-18 mg/dL Creatinine 1.0 0.5-1.3 mg/dL Glomerular Filtration Rate Calc 81 >90 mL/min Random Glucose 87 70-105 mg/dL Total Calcium 8.9 8.5-10.1 mg/dL Phosphorus Level 2.6 2.5-4.9 mg/dL Iron Level 26 L 65-175 mcg/dL Total Iron Binding Capacity 216 L 250-450 mcg/dL Percent Iron Saturation 12.0 L 30-44 % Whole Blood Glucose 100 70-110 MG/DL Lactic Acid Level 1.6 0.8-2.5 mmol/L Ammonia 20 11-32 umol/L Magnesium Level 1.70 L 1.80-2.40 mg/dL Total Bilirubin 0.7 0.2-1.0 mg/dL Direct Bilirubin 0.3 0.0-0.3 mg/dL Aspartate Amino Transf (AST/SGOT) 27 10-37 U/L Alanine Aminotransferase (ALT/SGPT) 31 12-78 U/L Alkaline Phosphatase 136 50-136 U/L Total Protein 7.1 6.0-8.3 g/dL Albumin 3.0 L 3.5-5.0 g/dL Procalcitonin 0.14 0.05-0.5 ng/mL Test 01/10/25 17:44 Range/Units Hemoglobin A1c 7.9 H 4.0-6.0 % Estimated Average Glucose (eAG) 180 H 70-126 mg/dL Total Creatine Kinase 21 # 21-232 U/L Troponin I High Sensitivity 6 4-75 ng/L Coagulation Labs: Test 01/10/25 17:44 Range/Units Prothrombin Time 11.6 9.6-11.6 SEC Prothromb Time International Ratio 1.11 0.85-1.15 DIAGNOSTICS / RADIOLOGY: [place] [id number] [address] IMAGING REPORT Signed PATIENT: EDWAR LOPEZ JR MR#: [id number] : 1955 SEX: M AGE: 69 LOCATION: [facility] ORDER 53 STATUS: ADM IN REPORT#: [id number] SERVICE 53 REASON: cirrhosis ORDERING PHYSICIAN: ANTWAN LEARY MD PROCEDURE: ABD PELWWO - CT ABDOMEN/PELVIS W/WO CONTRAS EXAM: CT Abdomen and Pelvis without and with IV contrast. CLINICAL HISTORY: Cirrhosis. TECHNIQUE: Thin collimated axial CT images of the abdomen and pelvis were obtained, with sagittal and coronal reformatted images also submitted. A CT scan is done according to ALARA (As Low As Reasonably Achievable). CONTRAST: Omnipaque 350 COMPARISON: None. FINDINGS: Mild right pleural effusion. No focal abnormality within the pancreas, spleen, adrenals, or kidneys. The liver is small with diffuse surface nodularity, suggesting liver cirrhosis. The portal vein is replaced by a portal cavernoma. Multiple dilated tortuous venous collateral vessels in the abdomen and pelvis, predominantly in the right intrahepatic location. An 8 mm gallbladder calculus with no acute cholecystitis. Mild colonic diverticulosis with no acute diverticulitis. There is no obvious bowel wall thickening. Bowel loops are normal in caliber without evidence of obstruction or ileus. The appendix is normal. There is no abnormality within the urinary bladder. Unremarkable reproductive organs. Abdominal and pelvic vessels are patent. Scattered atherosclerotic wall calcifications in the abdominal aorta and its branches No lymphadenopathy. Mild ascites. Large right inguinal hernia containing omental fat and fluid. Small umbilical hernia containing omental fat and fluid. There is no acute osseous abnormality. Multilevel thoracolumbar spondylosis. IMPRESSIONS: Liver cirrhosis. Portal cavernoma with multiple dilated tortuous venous collateral vessels in the abdomen and pelvis. Cholelithiasis with no acute cholecystitis. Mild colonic diverticulosis with no acute diverticulitis. Mild ascites. Right inguinal and umbilical hernias. Mild right pleural effusion. /[place] DICTATED BY: JACK BERNSTEIN Jr., MD DATE: 01/11/25148 ELECTRONICALLY SIGNED BY: JACK BERNSTEIN Jr., MD DATE: 01/11/25148 PATIENT: EDWAR LOPEZ JR MR#: [id number] : 1955 SEX: M AGE: 69 LOCATION: ED ORDER 44 STATUS: [facility] REPORT#: [id number] SERVICE 42 REASON: sepsis ORDERING PHYSICIAN: ESTELA FINCH MD PROCEDURE: CXR1VW - CHEST 1VW EXAM: CR Chest, 1 View. CLINICAL HISTORY: sepsis COMPARISON: None provided. FINDINGS: LUNGS: The lungs show no infiltrate or other acute finding. PLEURAL SPACES: No evidence of pleural effusion or pneumothorax. MEDIASTINUM: The cardiomediastinal silhouette is within normal limits. BONES: No aggressive appearing osseous lesion seen. IMPRESSION: No acute cardiopulmonary pathology is evident. /[place] DICTATED BY: JACK BERNSTEIN Jr., MD DATE: 01/10/252099 ELECTRONICALLY SIGNED BY: JACK BERNSTEIN Jr., MD DATE: 01/10/252099 ASSESSMENT: Qkojr-iu-ymjgzob renal failure Anemia Spontaneous bacterial peritonitis 2/2 recurrent paracentesis Alcoholic liver cirrhosis Uncontrolled diabetes mellitus type 2 Leukocytosis Hypertension Recent history of left leg cellulitis PLAN: Labs, diagnostic, radiologic exams reviewed and interpreted by myself and supervising physician. We have reviewed external records in detail Venofer 300 mg IV daily x 3 doses. Require close monitoring of renal function and electrolytes Order CBC, CMP, and electrolytes in am Continue with antibiotics BiPAP as necessary, for respiratory distress Monitor blood pressure adjust medication doses as needed Avoid hypotensive episodes May use Dilaudid 0.5 mg IV every 6 hours as needed for severe pain Monitor blood sugars Strict intake, output, and daily weight should be monitored Please renally adjust medications Avoid nephrotoxic and nonsteroidal drugs Avoid contrast if possible Will continue to monitor renal function, anemia, electrolytes Treatment plan discussed with patient Questions were answered We have discussed with the other team physicians in detail about the care plan We will continue to monitor the patient closely ATTESTATION BY PHYSICIAN I have seen and examined the patient. I reviewed the documentation, medical decision making, and treatment plan as noted by the mid-level provider above. I agree with the findings and plan of care. GIANNA MAC MD, [facility] Jan 12, 2025 10:20
--- NOTE | 2025-01-12 12:07 | PN ---
[facility] PROGRESS NOTE Date of Service: Jan 12, 2025 Time of Service: 12:07 SUBJECTIVE: This is a 69-year-old male past medical history of diabetes type 2, CKD stage III, alcohol liver cirrhosis with recurrent paracentesis, debility and umbilical hernia presents to the ED for evaluation of abnormal lab results.Patient reports he went to see his PCP at the In and lab works were done and was told his WBC was elevated and was instructed to come to the Ed for evaluation.Patient was recently admitted in this facility on 01/01/2025 for left lower extremity cellulitis and patient received antibiotic treatment and was discharged home on 01/03/2025.Patient states he had Paracentesis done on 01/02/2025 and 4.5 L of fluid was removed.Ascitic fluid WBC 16,324 ,RBC 235 and neutrophils Patient also reports he used to be a heavy cigarette smoker (1pack /day and a heavy alcohol drinker( 6pcks beer/day) x 40 years and quit on both 5 years ago. Patient denies fever,chills,cough,chest pain,palpitation,shortness of breath,nausea,vomiti ng,bloody emesis ,bloody stool,diarrhea and abdominal pain.Patient reports he feels fine he denies any symptoms .Primary nurse was at bedside during my evaluation. Latest vital signs temperature 97.5, heart rate 73, blood pressure 133/62 saturation 98% on room air. Labs: WBC 24 with negative left shift of neutrophils 90, hemoglobin 8, hematocrit 26, platelet count 298. Sodium 130, potassium 4.2, chloride 94, CO2 27, BUN 41, creatinine 1.6, GFR 46 glucose 419 lactic acid two total CK 21 troponin six albumin 2.8. ABG result: PH 7.46, CO2 35, PO2 82, bicarb 24, O2 saturation 95 base excess one. Urinalysis is significant with urine glucose above 1000 otherwise unremarkable. Chest x-ray result revealed no acute cardiopulmonary pathology is evident. While in the ER patient received, patient received Rocephin 1 g IV and insulin 15 units. We will admit patient for further medical management 01/11/2025: Patient was seen and evaluated bedside in ED 17. Case discussed with RN, no acute overnight events. He is awake alert oriented x3, denies abdominal pain, shortness of breath, chest pain, palpitations. Lab shows white count of 24.4, lactic acid 2.8, procal 0.14. CT abdomen and pelvis showed liver cirrhosis, portal cavernoma with multiple dilated tortuous venous collateral vessels in abdomen and pelvis. Pending paracentesis. Patient received 1st dose of albumin for spontaneous bacterial peritonitis yesterday. Rocephin was stopped, Patient was started on Zosyn and ID was consulted . 01/12/2025: Patient was seen and evaluated bedside in room 204. Patient is awake alert oriented x3, denies abdominal pain, shortness of breath, confusion. White count has trended down to 14.1, ammonia 20, iron 26,% saturation 12. Patient will receive Venofer 300 mg IV today, lactulose 20 mg b.i.d. has been started. Patient is scheduled for therapeutic paracentesis by IR on Tuesday. Continue IV antibiotics, venofer, lactulose, insulin sliding scale. REVIEW OF SYSTEMS CONSTITUTIONAL: Denies fevers, chills, or night sweats. No unintentional weight loss reported. NEUROLOGICAL: Denies headache, amaurosis fugax, motor weakness, sensory deficit, vertigo/spinning sensation, gait abnormalities, or tremors. ENT: No hearing loss, otalgia, otorrhea, rhinitis, rhinorrhea, hoarseness, or sore throat. CARDIOVASCULAR: Denies any exertional angina, dyspnea on exertion, orthopnea, paroxysmal nocturnal dyspnea, palpitations, life-threatening arrhythmias, claudication. PULMONARY: Denies any shortness of breath, cough, phlegm/sputum, hemoptysis, pleuritic chest pain. SLEEP: Denies morning headaches, daytime somnolence or napping. Denies difficulty falling asleep, staying asleep, waking from sleep. Denies knowledge of snoring. GASTROINTESTINAL: Denies any type of dysphagia to either liquids or solids. Denies nausea, vomiting, pyrosis, early satiety, abdominal pain, diarrhea, constipation, or changes in stool consistency or caliber. Denies coffee-ground emesis, hematemesis, hematochezia, or melanotic stools. GENITOURINARY: Denies frequency, urgency, nocturia, hematuria or incontinence (Storage/Irritative symptoms.) Low urinary stream, straining to void, urinary intermittency or hesitancy, splitting of the voiding stream, terminal dribbling. ENDOCRINOLOGIC: Denies polyuria, polydipsia, polyphagia or heat/cold intolerances. HEMATOLOGIC: Denies thrombophilia/previous clots, or coagulopathy/bleeding disorders. ONCOLOGIC: Denies personal history of malignancy. DERMATOLOGIC: Denies rashes or pruritus. PSYCHIATRIC: Denies any suicidal or homicidal ideation. Denies hallucinations. PHYSICAL EXAM GENERAL APPEARANCE: The patient is awake, alert, and oriented, in no acute cardiopulmonary distress. NEUROLOGICAL: Cranial nerves II-XII grossly intact. Motor is 5/5 in bilateral upper and lower extremities proximal to distal. No sensory deficits. HEENT: Face is symmetric. Pupils are equal and reactive. Extraocular movements are intact. NECK: Supple. No JVD. No thyromegaly. No submental, submandibular, pre- /postauricular, occipital or supraclavicular lymphadenopathy. CHEST: Normal chest expansion. No Telemetry. LUNGS: Absence of any rales, rhonchi or any wheezing. CARDIOVASCULAR: Regular. S1 and S2 normal. No appreciable rubs, murmurs or gallops. ABDOMEN: Soft, nontender and round . There is no rebound, voluntary guarding, or rigidity. : Deferred. No Rayo. EXTREMITIES: Left leg slightly swollen and with erythema recent left leg cellulitis . SKIN: Petechiae to both arms Vital Signs (last 8hr) Date Time Temp Pulse Resp B/P (MAP) Pulse Ox O2 Delivery O2 Flow Rate FiO2 01/12/25 11:00 98.2 90 16 118/65 99 Room Air 01/12/25 07:26 98.4 87 18 112/58 99 Room Air LABS: Laboratory: Test 01/12/25 11:06 01/12/25 05:05 01/11/25 09:43 01/11/25 05:52 Range/Units Whole Blood Glucose 164 #H 70-110 MG/DL White Blood Count 14.1 #H 4.8-10.8 K/uL Red Blood Count 2.55 L 4.50-6.20 MIL/uL Hemoglobin 8.7 L 14.0-18.0 g/dL Hematocrit 25.7 L 42-54 % Mean Corpuscular Volume 100.8 H 79-99 fL Mean Corpuscular Hemoglobin 34.1 H 27.0-33.0 pg Mean Corpuscular Hemoglobin Concent 33.9 32.0-36.0 g/dL Red Cell Distribution Width 16.9 H 11.0-15.5 % Platelet Count 347 130-400 K/uL Mean Platelet Volume 9.7 7.5-10.5 fL Immature Granulocyte % (Auto) 1.5 H 0-1 % Neutrophils (%) (Auto) 83.6 H 40.0-77.0 % Lymphocytes (%) (Auto) 8.0 L 21.0-51.0 % Monocytes (%) (Auto) 4.9 3.0-13.0 % Eosinophils (%) (Auto) 1.4 0.0-8.0 % Basophils (%) (Auto) 0.6 0.0-5.0 % Neutrophils # (Auto) 11.8 H 1.8-7.7 K/uL Lymphocytes # (Auto) 1.1 1.0-4.8 K/uL Monocytes # (Auto) 0.7 0.1-1.0 K/uL Eosinophils # (Auto) 0.20 0.00-0.70 K/uL Basophils # (Auto) 0.08 0.00-0.20 K/uL Absolute Immature Granulocyte (auto 0.21 0-1 K/uL Nucleated Red Blood Cells 0.0 0.0-0.19 % Sodium Level 144 136-145 mmol/L Potassium Level 3.9 3.5-5.1 mmol/L Chloride Level 105 101-111 mmol/L Carbon Dioxide Level 27 21-32 mmol/L Blood Urea Nitrogen 22 H 7-18 mg/dL Creatinine 1.0 0.5-1.3 mg/dL Glomerular Filtration Rate Calc 81 >90 mL/min Random Glucose 87 70-105 mg/dL Total Calcium 8.9 8.5-10.1 mg/dL Phosphorus Level 2.6 2.5-4.9 mg/dL Iron Level 26 L 65-175 mcg/dL Total Iron Binding Capacity 216 L 250-450 mcg/dL Percent Iron Saturation 12.0 L 30-44 % Lactic Acid Level 1.6 0.8-2.5 mmol/L Ammonia 20 11-32 umol/L Magnesium Level 1.70 L 1.80-2.40 mg/dL Total Bilirubin 0.7 0.2-1.0 mg/dL Direct Bilirubin 0.3 0.0-0.3 mg/dL Aspartate Amino Transf (AST/SGOT) 27 10-37 U/L Alanine Aminotransferase (ALT/SGPT) 31 12-78 U/L Alkaline Phosphatase 136 50-136 U/L Total Protein 7.1 6.0-8.3 g/dL Albumin 3.0 L 3.5-5.0 g/dL Procalcitonin 0.14 0.05-0.5 ng/mL Test 01/10/25 21:40 01/10/25 19:56 01/10/25 17:44 Range/Units Urine Color YELLOW YELLOW Urine Appearance CLEAR CLEAR Urine pH 6.0 5.0-8.0 Urine Specific [place] 1.009 1.001-1.031 Urine Protein NEGATIVE NEGATIVE mg/dL Urine Glucose (UA) >=1000 H NEGATIVE mg/dL Urine Ketones NEGATIVE NEGATIVE mg/dL Urine Occult Blood NEGATIVE NEGATIVE Urine Nitrate NEGATIVE NEGATIVE Urine Bilirubin NEGATIVE NEGATIVE mg/dL Urine Urobilinogen 0.2 0.2-1.0 mg/dL Urine Leukocyte Esterase NEGATIVE NEGATIVE [place]/uL Urine RBC None 0-1 /HPF Urine WBC 0-1 0-1 /HPF Urine Squamous Epithelial Cells FEW 0-2 /HPF Urine Bacteria RARE None Seen /HPF Urine Hyaline Casts 0-1 0-1 /LPF /LPF Urine Other Casts 1 None Seen /LPF Blood Gas Specimen Type Arterial Arterial Blood pH 7.466 H 7.350-7.450 Arterial Blood Partial Pressure CO2 35 35-48 mmHg Arterial Blood Partial Pressure O2 82.7 L 83.0-108.0 mmHg Arterial Blood HCO3 24.5 21.0-28.0 mmol/L Arterial Blood Oxygen Saturation 95.9 94.0-98.0 % Arterial Blood Base Excess 1.0 -2.0-3.0 mmol/L Hemoglobin (Blood Gas) 9.6 L 13.5-17.5 g/dL Sodium (Blood Gas) 129 L 136-145 MMOL/L Bedside Potassium (Blood Gas) 4.4 3.4-4.5 MMOL/L Bedside Chloride (Blood Gas) 97 L 98-107 MMOL/L Bedside Glucose (Blood Gas) 430 *H 65-95 MG/DL Bedside Ionized Calcium (Blood Gas) 1.20 1.15-1.33 MMOL/L Bedside Lactic Acid (Blood Gas) 1.88 H 0.36-0.75 MMOL/L Blood Gas Temperature 37.0 35.5-37.0 CELSIUS Blood Gas Vent Mode RA ROOM AIR FiO2 21.0 % Blood Gas Specimen Comment RR White Cell Morphology Comment See comments Prothrombin Time 11.6 9.6-11.6 SEC Prothromb Time International Ratio 1.11 0.85-1.15 Hemoglobin A1c 7.9 H 4.0-6.0 % Estimated Average Glucose (eAG) 180 H 70-126 mg/dL Total Creatine Kinase 21 # 21-232 U/L Troponin I High Sensitivity 6 4-75 ng/L Current Medications Medications (Trade) Dose Ordered Sig/Azael Route PRN Reason Start Time Stop Time Status Last Admin Dose Admin Acetaminophen (TYLenol 325MG TAB) 650 mg Q4H PRN PO MILD PAIN (1-3) 01/11/25 00:00 02/10/25 00:00 Acetaminophen (TYLenol 325MG TAB) 650 mg Q6H PRN PO TEMPERATURE GREATER THAN 101.5 01/11/25 00:00 02/10/25 00:00 Albumin Human 100 ml @ 0 mls/hr Q6H IV 01/11/25 00:00 01/11/25 06:01 DC 01/11/25 06:33 100 MLS/HR Ceftriaxone Sodium 1 gm/ Sodium Chloride 50 ml @ 100 mls/hr Q24H IV 01/11/25 00:00 01/10/25 23:55 DC Ceftriaxone Sodium (ROCEphine 1G INJ) 1 gm ONCE IVPB 01/10/25 19:00 01/10/25 23:46 DC 01/10/25 22:20 1 GM Ceftriaxone Sodium (ROCEphine 1G INJ) 1 gm Q24H IVPB 01/11/25 23:45 01/11/25 10:20 DC Dextrose (D50w) 50 ml AD PRN IV HYPOGLYCEMIA PROTOCOL 01/11/25 00:00 02/10/25 00:00 Glucagon (Glucagon 1mg Kit) 1 mg AD PRN IM HYPOGLYCEMIA PROTOCOL 01/11/25 00:00 02/10/25 00:00 Insulin Human Regular (humuLIN R 100 UNIT/ML 3ML) INSULIN SLIDING SCAL... Q4H SQ 01/11/25 00:00 02/10/25 00:00 Magnesium Sulfate 50 ml @ 0 mls/hr PROTOCOL PRN IV OTHER [SEE ORDER COMMENTS] 01/11/25 00:00 02/10/25 00:00 Ondansetron HCl (zoFRAN 4MG INJ) 4 mg Q6H PRN IV NAUSEA/VOMITING 01/11/25 00:00 02/10/25 00:00 Pantoprazole Sodium (PROTonix 40MG TAB) 40 mg DAILY PO 01/11/25 09:00 02/10/25 08:59 01/12/25 10:10 40 MG Piperacillin Sod/ Tazobactam Sod (Zosyn 3.375gm+NS 50ml) 3.375 gm Q8H IVPB 01/11/25 10:30 01/21/25 10:29 01/12/25 10:10 3.375 GM Potassium Chloride 100 ml @ 100 mls/hr AD PRN IV POTASSIUM PROTOCOL 01/11/25 00:00 02/10/25 00:00 Potassium Chloride (K-Dur/Klor-Con 20meq) 20 meq AD PRN PO POTASSIUM PROTOCOL 01/11/25 00:00 02/10/25 00:00 Potassium Chloride (KCl 10% Elixir 20meq/15ml) 20 meq AD PRN PO POTASSIUM PROTOCOL 01/11/25 00:00 02/10/25 00:00 DIAGNOSTICS / RADIOLOGY: [ ] ASSESSMENT: Spontaneous bacterial peritonitis 2/2 recurrent paracentesis(ascitic fluid WBC 16,324 on 01/02/2025) POA Alcoholic liver cirrhosis with ascites POA Acute Kidney injury in cirrhosis POA Uncontrolled Diabetes type 2 with hyperglycemia POA Severe Acute leukocytosis POA Acute on chronic anemia POA Recent Left leg cellulitis POA Pseudohyponatremia secondary to hyperglycemia POA Protein calorie malnutrition POA Umbilical hernia POA Right inguinal scrotal hernia POA PLAN: Spontaneous bacterial peritonitis 2/2 recurrent paracentesis(ascitic fluid WBC 16,324 on 01/02/2025) POA * Patient is known case of liver cirrhosis with recurrent paracentesis and the recent one done on 01/02/2025 * Cell count from last paracentesis shows WBC count 79852, neutrophils 86, RBC 235 * On presentation CBC showed white count of 24.5, trended down to 14.1 On 01/12/2025 * Received 1st dose of albumin for prophylaxis of spontaneous bacterial peritonitis on 01/10/2025 * 2nd dose of albumin for SBP prophylaxis given on 01/12/2025 * Continue IV Zosyn 3.75 g day 2 * GI On board, we will follow up with the recommendations. Alcoholic liver cirrhosis with ascites POA * Patient is known case of alcoholic liver cirrhosis with MELD score 10. * Patient had therapeutic paracentesis on 01/02/2025, cell count showed WBC 96261, neutrophils 86, RBC 235 * Patient was discharged on oral antibiotics. * We will reconcile home meds once medlist available Severe Acute leukocytosis POA * Patient came to ED for evaluation of increased white count which was recommended by his PCP * On arrival CBC showed white count of 24.5 * White Count trended down to 14.1 On 01/12/2025 * Continue IV antibiotics, we will trend WBC. Recent Left leg cellulitis POA * Patient was admitted to this facility for lower extremity cellulitis on 01/01/2025 * He was discharged home on Ceftin 500 mg p.o. twice daily fluconazole 200 mg p.o. daily * Patient admitted that he did not complete the prescribed antibiotics after discharge * New IV Zosyn 3.375 g day 2 * ID on board we will follow up with the recommendations Protonix 40 mg IV daily for GI prophylaxis We will replace electrolytes as needed per protocol We will start on insulin sliding scale q.4 hours with hypoglycemia protocol We will add prn medication for fever,pain,cough , nausea and vomiting ATTESTATION BY PHYSICIAN I have seen and examined the patient. I reviewed the documentation, medical decision making, and treatment plan as noted by the resident physician above. I agree with the findings and plan of care. KATHY KING MD, ADIL SHAH QUADRI MD Jan 12, 2025 12:07
[2025-01-12] MEDS ORDERED: LACTULOSE 20 GM/30 ML UDCUP PO PRN (13:30)
[2025-01-12] MEDS: IRON SUCROSE COMPLEX 300 MG+/NS 250ML IV SCH (13:50)
[2025-01-12] MEDS ORDERED: COMPOUND IV MISC 1 EACH IVSOLN MISC PRN (14:00)
[2025-01-12] MEDS ORDERED: COMPOUND IV REFRIGERATED 1 EACH IVSOLN MISC PRN (14:00)
[2025-01-12] MEDS ORDERED: LACTULOSE 20 GM/30 ML UDCUP PO SCH (14:00)
[2025-01-12] MEDS ORDERED: CEFU500T67 PO (15:02)
[2025-01-12] MEDS ORDERED: FLUC150T48 PO (15:02)
[2025-01-12] MEDS: ALBUMIN HUMAN 25% 100 ML IV ONE ×2 (16:30→20:04)
[2025-01-12] MEDS: PROPRANOLOL HCL 10 MG TAB PO SCH (21:36)
[2025-01-13] VITALS (8 sets, daily range): BP systolic 94–117; BP diastolic 42–58; PULSE 77–98; RESP 16–22; TEMP 98.3–99; O2SAT 94–95
[2025-01-13 03:56] LABS: NUCLEATED RED BLOOD CELLS 0.0 % (0.0-0.19); PLATELET COUNT (AUTO) 345.0 K/uL (130-400); RED BLOOD CELL COUNT(AUTO) 2.39 MIL/uL (4.50-6.20); RED CELL DISTRIBUTION WIDTH 16.6 % (11.0-15.5); WHITE BLOOD COUNT (AUTO) 9.3 K/uL (4.8-10.8)
--- NOTE | 2025-01-13 04:04 | PN ---
INFECTIOUS DISEASE FOLLOWUP NOTE DATE OF SERVICE: 01/11/2025 SUBJECTIVE: The patient was seen and examined at bedside today. The patient has no fever, no chills. No nausea or vomiting. No abdominal pain. No dysuria or urinary frequency. There are no rashes or itchiness. No palpitations or orthopnea. No swelling. Appetite is good. No bleeding tendency. PHYSICAL EXAMINATION: VITAL SIGNS: Temperature today 98.7. EYES: No icterus. Pupils equal and reactive. HENT: No oral thrush seen. Moist oral mucosa. NECK: Supple. No JVD or thyromegaly. LUNGS: Good air entry. No rales. No rhonchi. CARDIOVASCULAR: S1 and S2, regular. No murmur heard. ABDOMEN: Soft, nontender. Bowel sounds present. CENTRAL NERVOUS SYSTEM: Awake, alert, oriented x 3. No focal deficits. SKIN: No rashes. LYMPHATIC: No peripheral lymphadenopathy. EXTREMITIES: There is cellulitis. The patient's left leg is better. LABORATORY DATA: WBC count 24.4, hemoglobin 8.7, platelets 329. ASSESSMENT: A 69-year-old male presenting with abnormal lab. CURRENT PROBLEMS: 1. Spontaneous bacterial peritonitis. 2. Alcoholic liver cirrhosis. 3. Ascites. 4. Diabetes mellitus. 5. . PLAN: 1. Continue present antibiotic regimen. 2. The patient will need . 3. Continue nutritional support. 4. Continue GI prophylaxis. 5. Continue . 6. Monitor renal function. 7. The patient will be followed up closely. TID: [id number] RECEIPT: [id number]
[2025-01-13 04:18] LABS: ASPARTATE AMINOTRANSFERASE 25.0 U/L (10-37); CREATININE 1.0 mg/dL (0.5-1.3); GLOMERULAR FILTR. RATE CALC 81.0 mL/min (>90); GLUCOSE,RANDOM 107.0 mg/dL (70-105); SODIUM SERUM 140.0 mmol/L (136-145); TOTAL PROTEIN, SERUM 6.6 g/dL (6.0-8.3); UREA NITROGEN, BLOOD 18.0 mg/dL (7-18)
[2025-01-13] MEDS: PoTASSium chloRIDE 20MEQ ER 20 MEQ ERTAB PO PRN (05:42)
[2025-01-13] MEDS: SPIRONOLACTONE 25 MG TAB PO SCH (08:26)
[2025-01-13] MEDS: MAGNESIUM 2GM PREMIX 50ML 50 ML IV PRN (08:28)
--- NOTE | 2025-01-13 09:46 | PN ---
NEPHROLOGY PROGRESS NOTE Date/Time Patient Seen: Jan 13, 2025 SUBJECTIVE: This is 69-year-old male with a history of diabetes mellitus and hypertension. He has a history of known cirrhosis. The patient with previous paracentesis. The patient was just recently admitted to the hospital with cellulitis and was found to have significant renal dysfunction. The patient presents to the hospital with complaints of increasing abdominal pain. In the Emergency Room, the patient was found to have significant leukocytosis and started on antibiotics. The patient with ascites and is scheduled for paracentesis. He has had [id number] renal failure in the hospital and he is being seen in consultation for all the above. The patient does present with significant renal dysfunction. Workup is consistent with peritonitis and he remains on the antibiotics. The patient is scheduled for the paracentesis on tomorrow He does have underlying renal dysfunction. Blood pressure is under adequate control. Hemoglobin was noted, continues on IV iron Renal function and electrolytes are stable We will continue to monitor chemistries closely. REVIEW OF SYSTEMS: GENERAL: Negative for any nausea, vomiting, fevers, chills, or weight loss. NEUROLOGIC: Negative for any blurry vision, blind spots, double vision, facial asymmetry, dysphagia, dysarthria, hemiparesis, hemisensory deficits, vertigo, ataxia. HEENT: Negative for any head trauma, neck trauma, neck stiffness, photophobia, phonophobia, sinusitis, rhinitis. CARDIAC: Negative for any chest pain, dyspnea on exertion, paroxysmal nocturnal dyspnea, peripheral edema. PULMONARY: Negative for any shortness of breath, wheezing, COPD, or TB exposure. GASTROINTESTINAL: Negative for any abdominal pain, nausea, vomiting, bright red blood per rectum, melena. GENITOURINARY: Negative for any dysuria, hematuria, incontinence. INTEGUMENTARY: Negative for any rashes, cuts, insect bites. RHEUMATOLOGIC: Negative for any joint pains, photosensitive rashes, history of vasculitis or kidney problems. HEMATOLOGIC: Negative for any abnormal bruising, frequent infections or bleeding. Vital Signs (last 8hr) Date Time Temp Pulse Resp B/P (MAP) Pulse Ox O2 Delivery O2 Flow Rate FiO2 01/13/25 07:24 98.8 89 18 107/58 94 Room Air 01/13/25 03:21 98.2 86 18 102/51 97 Room Air PHYSICAL EXAM: GENERAL: Alert and oriented x 3. No acute distress. Well-nourished. EYES: EOMI. Anicteric. HENT: Moist mucous membranes. No scleral icterus. No cervical lymphadenopathy. LUNGS: Clear to auscultation bilaterally. No accessory muscle use. CARDIOVASCULAR: Regular rate and rhythm. No murmur. No JVD. ABDOMEN: Soft, non-tender and non-distended. No palpable masses. EXTREMITIES: No edema. Non-tender. SKIN: No rashes or lesions. Warm. NEUROLOGIC: No focal neurological deficits. CN II-XII grossly intact, but not individually tested. PSYCHIATRIC: Cooperative. Appropriate mood and affect. Current Medications Medications (Trade) Dose Ordered Sig/Azael Route PRN Reason Start Time Stop Time Status Last Admin Dose Admin Acetaminophen (TYLenol 325MG TAB) 650 mg Q4H PRN PO MILD PAIN (1-3) 01/11/25 00:00 02/10/25 00:00 Acetaminophen (TYLenol 325MG TAB) 650 mg Q6H PRN PO TEMPERATURE GREATER THAN 101.5 01/11/25 00:00 02/10/25 00:00 Albumin Human 100 ml @ 0 mls/hr Q6H IV 01/11/25 00:00 01/11/25 06:01 DC 01/11/25 06:33 100 MLS/HR Ceftriaxone Sodium 1 gm/ Sodium Chloride 50 ml @ 100 mls/hr Q24H IV 01/11/25 00:00 01/10/25 23:55 DC Ceftriaxone Sodium (ROCEphine 1G INJ) 1 gm ONCE IVPB 01/10/25 19:00 01/10/25 23:46 DC 01/10/25 22:20 1 GM Ceftriaxone Sodium (ROCEphine 1G INJ) 1 gm Q24H IVPB 01/11/25 23:45 01/11/25 10:20 DC Dextrose (D50w) 50 ml AD PRN IV HYPOGLYCEMIA PROTOCOL 01/11/25 00:00 02/10/25 00:00 Glucagon (Glucagon 1mg Kit) 1 mg AD PRN IM HYPOGLYCEMIA PROTOCOL 01/11/25 00:00 02/10/25 00:00 Insulin Human Regular (humuLIN R 100 UNIT/ML 3ML) INSULIN SLIDING SCAL... Q4H SQ 01/11/25 00:00 02/10/25 00:00 Magnesium Sulfate 50 ml @ 0 mls/hr PROTOCOL PRN IV OTHER [SEE ORDER COMMENTS] 01/11/25 00:00 02/10/25 00:00 Ondansetron HCl (zoFRAN 4MG INJ) 4 mg Q6H PRN IV NAUSEA/VOMITING 01/11/25 00:00 02/10/25 00:00 Pantoprazole Sodium (PROTonix 40MG TAB) 40 mg DAILY PO 01/11/25 09:00 02/10/25 08:59 01/12/25 10:10 40 MG Piperacillin Sod/ Tazobactam Sod (Zosyn 3.375gm+NS 50ml) 3.375 gm Q8H IVPB 01/11/25 10:30 01/21/25 10:29 01/12/25 10:10 3.375 GM Potassium Chloride 100 ml @ 100 mls/hr AD PRN IV POTASSIUM PROTOCOL 01/11/25 00:00 02/10/25 00:00 Potassium Chloride (K-Dur/Klor-Con 20meq) 20 meq AD PRN PO POTASSIUM PROTOCOL 01/11/25 00:00 02/10/25 00:00 Potassium Chloride (KCl 10% Elixir 20meq/15ml) 20 meq AD PRN PO POTASSIUM PROTOCOL 01/11/25 00:00 02/10/25 00:00 LABORATORY: [ ] Hematology Labs: Test 01/13/25 03:35 01/12/25 05:05 Range/Units White Blood Count 9.3 # 4.8-10.8 K/uL Red Blood Count 2.39 L 4.50-6.20 MIL/uL Hemoglobin 8.0 L 14.0-18.0 g/dL Hematocrit 24.4 L 42-54 % Mean Corpuscular Volume 102.1 H 79-99 fL Mean Corpuscular Hemoglobin 33.5 H 27.0-33.0 pg Mean Corpuscular Hemoglobin Concent 32.8 32.0-36.0 g/dL Red Cell Distribution Width 16.6 H 11.0-15.5 % Platelet Count 345 130-400 K/uL Mean Platelet Volume 9.5 7.5-10.5 fL Nucleated Red Blood Cells 0.0 0.0-0.19 % Immature Granulocyte % (Auto) 1.5 H 0-1 % Neutrophils (%) (Auto) 83.6 H 40.0-77.0 % Lymphocytes (%) (Auto) 8.0 L 21.0-51.0 % Monocytes (%) (Auto) 4.9 3.0-13.0 % Eosinophils (%) (Auto) 1.4 0.0-8.0 % Basophils (%) (Auto) 0.6 0.0-5.0 % Neutrophils # (Auto) 11.8 H 1.8-7.7 K/uL Lymphocytes # (Auto) 1.1 1.0-4.8 K/uL Monocytes # (Auto) 0.7 0.1-1.0 K/uL Eosinophils # (Auto) 0.20 0.00-0.70 K/uL Basophils # (Auto) 0.08 0.00-0.20 K/uL Absolute Immature Granulocyte (auto 0.21 0-1 K/uL Chemistry Labs: Test 01/13/25 04:24 01/13/25 03:35 01/13/25 00:11 01/12/25 05:05 Range/Units Whole Blood Glucose 100 70-110 MG/DL Sodium Level 140 136-145 mmol/L Potassium Level 3.6 3.5-5.1 mmol/L Chloride Level 105 101-111 mmol/L Carbon Dioxide Level 30 21-32 mmol/L Blood Urea Nitrogen 18 7-18 mg/dL Creatinine 1.0 0.5-1.3 mg/dL Glomerular Filtration Rate Calc 81 >90 mL/min Random Glucose 107 H 70-105 mg/dL Total Calcium 8.4 L 8.5-10.1 mg/dL Magnesium Level 1.50 L 1.80-2.40 mg/dL Total Bilirubin 1.0 0.2-1.0 mg/dL Aspartate Amino Transf (AST/SGOT) 25 10-37 U/L Alanine Aminotransferase (ALT/SGPT) 27 12-78 U/L Alkaline Phosphatase 102 50-136 U/L Total Protein 6.6 6.0-8.3 g/dL Albumin 2.9 L 3.5-5.0 g/dL Bedside Glucose Comment Notified Nurse Phosphorus Level 2.6 2.5-4.9 mg/dL Iron Level 26 L 65-175 mcg/dL Total Iron Binding Capacity 216 L 250-450 mcg/dL Percent Iron Saturation 12.0 L 30-44 % DIAGNOSTICS / RADIOLOGY: [facility] [address] [address] IMAGING REPORT Signed PATIENT: EDWAR LOPEZ JR MR#: [id number] : 1955 SEX: M AGE: 69 LOCATION: [facility] ORDER 53 STATUS: ADM IN REPORT#: [id number] SERVICE 53 REASON: cirrhosis ORDERING PHYSICIAN: ANTWAN LEARY MD PROCEDURE: ABD PELWWO - CT ABDOMEN/PELVIS W/WO CONTRAS EXAM: CT Abdomen and Pelvis without and with IV contrast. CLINICAL HISTORY: Cirrhosis. TECHNIQUE: Thin collimated axial CT images of the abdomen and pelvis were obtained, with sagittal and coronal reformatted images also submitted. A CT scan is done according to ALARA (As Low As Reasonably Achievable). CONTRAST: Omnipaque 350 COMPARISON: None. FINDINGS: Mild right pleural effusion. No focal abnormality within the pancreas, spleen, adrenals, or kidneys. The liver is small with diffuse surface nodularity, suggesting liver cirrhosis. The portal vein is replaced by a portal cavernoma. Multiple dilated tortuous venous collateral vessels in the abdomen and pelvis, predominantly in the right intrahepatic location. An 8 mm gallbladder calculus with no acute cholecystitis. Mild colonic diverticulosis with no acute diverticulitis. There is no obvious bowel wall thickening. Bowel loops are normal in caliber without evidence of obstruction or ileus. The appendix is normal. There is no abnormality within the urinary bladder. Unremarkable reproductive organs. Abdominal and pelvic vessels are patent. Scattered atherosclerotic wall calcifications in the abdominal aorta and its branches No lymphadenopathy. Mild ascites. Large right inguinal hernia containing omental fat and fluid. Small umbilical hernia containing omental fat and fluid. There is no acute osseous abnormality. Multilevel thoracolumbar spondylosis. IMPRESSIONS: Liver cirrhosis. Portal cavernoma with multiple dilated tortuous venous collateral vessels in the abdomen and pelvis. Cholelithiasis with no acute cholecystitis. Mild colonic diverticulosis with no acute diverticulitis. Mild ascites. Right inguinal and umbilical hernias. Mild right pleural effusion. /[place] DICTATED BY: JACK BERNSTEIN Jr., MD DATE: 01/11/25148 ELECTRONICALLY SIGNED BY: JACK BERNSTEIN Jr., MD DATE: 01/11/25148 PATIENT: EDWAR LOPEZ JR MR#: [id number] : 1955 SEX: M AGE: 69 LOCATION: [facility] ORDER 44 STATUS: REG ER REPORT#: [id number] SERVICE 42 REASON: sepsis ORDERING PHYSICIAN: ESTELA FINHC MD PROCEDURE: CXR1VW - CHEST 1VW EXAM: CR Chest, 1 View. CLINICAL HISTORY: sepsis COMPARISON: None provided. FINDINGS: LUNGS: The lungs show no infiltrate or other acute finding. PLEURAL SPACES: No evidence of pleural effusion or pneumothorax. MEDIASTINUM: The cardiomediastinal silhouette is within normal limits. BONES: No aggressive appearing osseous lesion seen. IMPRESSION: No acute cardiopulmonary pathology is evident. /[place] DICTATED BY: JACK BERNSTEIN Jr., MD DATE: 01/10/252099 ELECTRONICALLY SIGNED BY: JACK BERNSTEIN Jr., MD DATE: 01/10/252099 ASSESSMENT: Vawro-gf-ebdtmua renal failure Anemia Spontaneous bacterial peritonitis 2/2 recurrent paracentesis Ascites Alcoholic liver cirrhosis Uncontrolled diabetes mellitus type 2 Leukocytosis Hypertension Recent history of left leg cellulitis PLAN: Labs, diagnostic, radiologic exams reviewed and interpreted by myself and supervising physician. We have reviewed external records in detail Potassium magnesium replacement has been ordered Continue with IV iron Draw labs in pediatric tubes Require close monitoring of renal function and electrolytes Order CBC, CMP, and electrolytes in am Continue with antibiotics BiPAP as necessary, for respiratory distress Monitor blood pressure adjust medication doses as needed Avoid hypotensive episodes May use Dilaudid 0.5 mg IV every 6 hours as needed for severe pain Monitor blood sugars Strict intake, output, and daily weight should be monitored Please renally adjust medications Avoid nephrotoxic and nonsteroidal drugs Avoid contrast if possible Will continue to monitor renal function, anemia, electrolytes Treatment plan discussed with patient Questions were answered We have discussed with the other team physicians in detail about the care plan We will continue to monitor the patient closely ATTESTATION BY PHYSICIAN I have seen and examined the patient. I reviewed the documentation, medical decision making, and treatment plan as noted by the mid-level provider above. I agree with the findings and plan of care. GIANNA MAC MD, [facility] Jan 13, 2025 09:45
--- NOTE | 2025-01-13 15:25 | PN ---
[facility] PROGRESS NOTE Date of Service: Jan 13, 2025 Time of Service: 15:25 SUBJECTIVE: This is a 69-year-old male past medical history of diabetes type 2, CKD stage III, alcohol liver cirrhosis with recurrent paracentesis, debility and umbilical hernia presents to the ED for evaluation of abnormal lab results.Patient reports he went to see [facility] P[facility] and lab works were done and was told his WBC was elevated and was instructed to come to the Ed for evaluation.Patient was recently admitted in this facility on 01/01/2025 for left lower extremity cellulitis and patient received antibiotic treatment and was discharged home on 01/03/2025.Patient states he had Paracentesis done on 01/02/2025 and 4.5 L of fluid was removed.Ascitic fluid WBC 16,324 ,RBC 235 and neutrophils Patient also reports he used to be a heavy cigarette smoker (1pack /day and a heavy alcohol drinker( 6pcks beer/day) x 40 years and quit on both 5 years ago. Patient denies fever,chills,cough,chest pain,palpitation,shortness of breath,nausea,vomiti ng,bloody emesis ,bloody stool,diarrhea and abdominal pain.Patient reports he feels fine he denies any symptoms .Primary nurse was at bedside during my evaluation. Latest vital signs temperature 97.5, heart rate 73, blood pressure 133/62 saturation 98% on room air. Labs: WBC 24 with negative left shift of neutrophils 90, hemoglobin 8, hematocrit 26, platelet count 298. Sodium 130, potassium 4.2, chloride 94, CO2 27, BUN 41, creatinine 1.6, GFR 46 glucose 419 lactic acid two total CK 21 troponin six albumin 2.8. ABG result: PH 7.46, CO2 35, PO2 82, bicarb 24, O2 saturation 95 base excess one. Urinalysis is significant with urine glucose above 1000 otherwise unremarkable. Chest x-ray result revealed no acute cardiopulmonary pathology is evident. While in the ER patient received, patient received Rocephin 1 g IV and insulin 15 units. We will admit patient for further medical management 01/11/2025: Patient was seen and evaluated bedside in ED 17. Case discussed with RN, no acute overnight events. He is awake alert oriented x3, denies abdominal pain, shortness of breath, chest pain, palpitations. Lab shows white count of 24.4, lactic acid 2.8, procal 0.14. CT abdomen and pelvis showed liver cirrhosis, portal cavernoma with multiple dilated tortuous venous collateral vessels in abdomen and pelvis. Pending paracentesis. Patient received 1st dose of albumin for spontaneous bacterial peritonitis yesterday. Rocephin was stopped, Patient was started on Zosyn and ID was consulted . 01/12/2025: Patient was seen and evaluated bedside in room 204. Patient is awake alert oriented x3, denies abdominal pain, shortness of breath, confusion. White count has trended down to 14.1, ammonia 20, iron 26,% saturation 12. Patient will receive Venofer 300 mg IV today, lactulose 20 mg b.i.d. has been started. Patient is scheduled for therapeutic paracentesis by IR on Tuesday. Continue IV antibiotics, venofer, lactulose, insulin sliding scale. 01/13/2025: Patient was seen and evaluated bedside in room 204. Patient is awake alert oriented x3, denies abdominal pain, shortness of breath, confusion. White count has trended down to 9.3, and his ammonia 20, iron 26,% saturation 12. Patient received 2 bags of 300 mg IV Venofer since yesterday. Patient is awaiting therapeutic paracentesis by IR on Tuesday. Continue IV antibiotics, lactulose, insulin sliding scale. REVIEW OF SYSTEMS CONSTITUTIONAL: Denies fevers, chills, or night sweats. No unintentional weight loss reported. NEUROLOGICAL: Denies headache, amaurosis fugax, motor weakness, sensory deficit, vertigo/spinning sensation, gait abnormalities, or tremors. ENT: No hearing loss, otalgia, otorrhea, rhinitis, rhinorrhea, hoarseness, or sore throat. CARDIOVASCULAR: Denies any exertional angina, dyspnea on exertion, orthopnea, paroxysmal nocturnal dyspnea, palpitations, life-threatening arrhythmias, claudication. PULMONARY: Denies any shortness of breath, cough, phlegm/sputum, hemoptysis, pleuritic chest pain. SLEEP: Denies morning headaches, daytime somnolence or napping. Denies difficulty falling asleep, staying asleep, waking from sleep. Denies knowledge of snoring. GASTROINTESTINAL: Denies any type of dysphagia to either liquids or solids. Denies nausea, vomiting, pyrosis, early satiety, abdominal pain, diarrhea, constipation, or changes in stool consistency or caliber. Denies coffee-ground emesis, hematemesis, hematochezia, or melanotic stools. GENITOURINARY: Denies frequency, urgency, nocturia, hematuria or incontinence (Storage/Irritative symptoms.) Low urinary stream, straining to void, urinary intermittency or hesitancy, splitting of the voiding stream, terminal dribbling. ENDOCRINOLOGIC: Denies polyuria, polydipsia, polyphagia or heat/cold intolerances. HEMATOLOGIC: Denies thrombophilia/previous clots, or coagulopathy/bleeding disorders. ONCOLOGIC: Denies personal history of malignancy. DERMATOLOGIC: Denies rashes or pruritus. PSYCHIATRIC: Denies any suicidal or homicidal ideation. Denies hallucinations. PHYSICAL EXAM GENERAL APPEARANCE: The patient is awake, alert, and oriented, in no acute cardiopulmonary distress. NEUROLOGICAL: Cranial nerves II-XII grossly intact. Motor is 5/5 in bilateral upper and lower extremities proximal to distal. No sensory deficits. HEENT: Face is symmetric. Pupils are equal and reactive. Extraocular movements are intact. NECK: Supple. No JVD. No thyromegaly. No submental, submandibular, pre- /postauricular, occipital or supraclavicular lymphadenopathy. CHEST: Normal chest expansion. No Telemetry. LUNGS: Absence of any rales, rhonchi or any wheezing. CARDIOVASCULAR: Regular. S1 and S2 normal. No appreciable rubs, murmurs or gallops. ABDOMEN: Soft, nontender and round . There is no rebound, voluntary guarding, or rigidity. : Deferred. No Rayo. EXTREMITIES: Left leg slightly swollen and with erythema recent left leg cellulitis . SKIN: Petechiae to both arms Vital Signs (last 8hr) Date Time Temp Pulse Resp B/P (MAP) Pulse Ox O2 Delivery O2 Flow Rate FiO2 01/13/25 12:17 98.4 86 16 94/42 100 Room Air LABS: Laboratory: Test 01/13/25 11:23 01/13/25 03:35 01/13/25 00:11 01/12/25 05:05 Range/Units Whole Blood Glucose 217 #H 70-110 MG/DL White Blood Count 9.3 # 4.8-10.8 K/uL Red Blood Count 2.39 L 4.50-6.20 MIL/uL Hemoglobin 8.0 L 14.0-18.0 g/dL Hematocrit 24.4 L 42-54 % Mean Corpuscular Volume 102.1 H 79-99 fL Mean Corpuscular Hemoglobin 33.5 H 27.0-33.0 pg Mean Corpuscular Hemoglobin Concent 32.8 32.0-36.0 g/dL Red Cell Distribution Width 16.6 H 11.0-15.5 % Platelet Count 345 130-400 K/uL Mean Platelet Volume 9.5 7.5-10.5 fL Nucleated Red Blood Cells 0.0 0.0-0.19 % Sodium Level 140 136-145 mmol/L Potassium Level 3.6 3.5-5.1 mmol/L Chloride Level 105 101-111 mmol/L Carbon Dioxide Level 30 21-32 mmol/L Blood Urea Nitrogen 18 7-18 mg/dL Creatinine 1.0 0.5-1.3 mg/dL Glomerular Filtration Rate Calc 81 >90 mL/min Random Glucose 107 H 70-105 mg/dL Total Calcium 8.4 L 8.5-10.1 mg/dL Magnesium Level 1.50 L 1.80-2.40 mg/dL Total Bilirubin 1.0 0.2-1.0 mg/dL Aspartate Amino Transf (AST/SGOT) 25 10-37 U/L Alanine Aminotransferase (ALT/SGPT) 27 12-78 U/L Alkaline Phosphatase 102 50-136 U/L Total Protein 6.6 6.0-8.3 g/dL Albumin 2.9 L 3.5-5.0 g/dL Bedside Glucose Comment Notified Nurse Immature Granulocyte % (Auto) 1.5 H 0-1 % Neutrophils (%) (Auto) 83.6 H 40.0-77.0 % Lymphocytes (%) (Auto) 8.0 L 21.0-51.0 % Monocytes (%) (Auto) 4.9 3.0-13.0 % Eosinophils (%) (Auto) 1.4 0.0-8.0 % Basophils (%) (Auto) 0.6 0.0-5.0 % Neutrophils # (Auto) 11.8 H 1.8-7.7 K/uL Lymphocytes # (Auto) 1.1 1.0-4.8 K/uL Monocytes # (Auto) 0.7 0.1-1.0 K/uL Eosinophils # (Auto) 0.20 0.00-0.70 K/uL Basophils # (Auto) 0.08 0.00-0.20 K/uL Absolute Immature Granulocyte (auto 0.21 0-1 K/uL Phosphorus Level 2.6 2.5-4.9 mg/dL Iron Level 26 L 65-175 mcg/dL Total Iron Binding Capacity 216 L 250-450 mcg/dL Percent Iron Saturation 12.0 L 30-44 % Current Medications Medications (Trade) Dose Ordered Sig/Azael Route PRN Reason Start Time Stop Time Status Last Admin Dose Admin Acetaminophen (TYLenol 325MG TAB) 650 mg Q4H PRN PO MILD PAIN (1-3) 01/11/25 00:00 02/10/25 00:00 Acetaminophen (TYLenol 325MG TAB) 650 mg Q6H PRN PO TEMPERATURE GREATER THAN 101.5 01/11/25 00:00 02/10/25 00:00 Albumin Human 100 ml @ 0 mls/hr Q6H IV 01/11/25 00:00 01/11/25 06:01 DC 01/11/25 06:33 100 MLS/HR Ceftriaxone Sodium 1 gm/ Sodium Chloride 50 ml @ 100 mls/hr Q24H IV 01/11/25 00:00 01/10/25 23:55 DC Ceftriaxone Sodium (ROCEphine 1G INJ) 1 gm ONCE IVPB 01/10/25 19:00 01/10/25 23:46 DC 01/10/25 22:20 1 GM Ceftriaxone Sodium (ROCEphine 1G INJ) 1 gm Q24H IVPB 01/11/25 23:45 01/11/25 10:20 DC Dextrose (D50w) 50 ml AD PRN IV HYPOGLYCEMIA PROTOCOL 01/11/25 00:00 02/10/25 00:00 Furosemide (LASix 40MG TAB) 40 mg BID PO 01/12/25 21:00 02/11/25 20:59 01/13/25 08:25 40 MG Glucagon (Glucagon 1mg Kit) 1 mg AD PRN IM HYPOGLYCEMIA PROTOCOL 01/11/25 00:00 02/10/25 00:00 Insulin Human Regular (humuLIN R 100 UNIT/ML 3ML) INSULIN SLIDING SCAL... Q4H SQ 01/11/25 00:00 02/10/25 00:00 01/13/25 13:13 3 UNIT Iron Sucrose (VenoFER) 300 mg Q24H IVP 01/12/25 13:30 01/12/25 13:29 DC Iron Sucrose 300 mg/Sodium Chloride 250 ml @ 83 mls/hr Q24H IV 01/12/25 14:00 01/13/25 17:01 01/13/25 13:11 83 MLS/HR Lactulose (Constulose 20gm/ 30ml Udcup) 20 gm BID PRN PO CONSTIPATION 01/12/25 13:30 02/11/25 13:29 Lactulose (Constulose 20gm/ 30ml Udcup) 20 gm TID PO 01/12/25 14:00 01/12/25 13:23 DC Magnesium Sulfate 50 ml @ 0 mls/hr PROTOCOL PRN IV OTHER [SEE ORDER COMMENTS] 01/11/25 00:00 02/10/25 00:00 01/13/25 08:28 25 MLS/HR Ondansetron HCl (zoFRAN 4MG INJ) 4 mg Q6H PRN IV NAUSEA/VOMITING 01/11/25 00:00 02/10/25 00:00 Pantoprazole Sodium (PROTonix 40MG TAB) 40 mg DAILY PO 01/11/25 09:00 02/10/25 08:59 01/13/25 08:25 40 MG Piperacillin Sod/ Tazobactam Sod (Zosyn 3.375gm+NS 50ml) 3.375 gm Q8H IVPB 01/11/25 10:30 01/21/25 10:29 01/13/25 10:50 3.375 GM Potassium Chloride 100 ml @ 100 mls/hr AD PRN IV POTASSIUM PROTOCOL 01/11/25 00:00 02/10/25 00:00 Potassium Chloride (K-Dur/Klor-Con 20meq) 20 meq AD PRN PO POTASSIUM PROTOCOL 01/11/25 00:00 02/10/25 00:00 01/13/25 08:26 20 MEQ Potassium Chloride (KCl 10% Elixir 20meq/15ml) 20 meq AD PRN PO POTASSIUM PROTOCOL 01/11/25 00:00 02/10/25 00:00 Propranolol HCl (Inderal) 10 mg TID PO 01/12/25 21:00 02/11/25 20:59 01/13/25 08:25 10 MG Spironolactone (Aldactone 25mg) 50 mg DAILY PO 01/13/25 09:00 02/12/25 08:59 01/13/25 08:26 50 MG DIAGNOSTICS / RADIOLOGY: [ ] ASSESSMENT: Spontaneous bacterial peritonitis 2/2 recurrent paracentesis(ascitic fluid WBC 16,324 on 01/02/2025) POA Alcoholic liver cirrhosis with ascites POA Acute Kidney injury in cirrhosis POA Uncontrolled Diabetes type 2 with hyperglycemia POA Severe Acute leukocytosis POA Acute on chronic anemia POA Recent Left leg cellulitis POA Pseudohyponatremia secondary to hyperglycemia, resolved Protein calorie malnutrition, poa Umbilical hernia POA Right inguinal scrotal hernia POA PLAN: Spontaneous bacterial peritonitis 2/2 recurrent paracentesis(ascitic fluid WBC 16,324 on 01/02/2025) POA * Patient is known case of liver cirrhosis with recurrent paracentesis and the recent one done on 01/02/2025 * Cell count from last paracentesis shows WBC count 69937, neutrophils 86, RBC 235 * On presentation CBC showed white count of 24.5, trended down to 14.1 On 01/12/2025 * Received 1st dose of albumin for prophylaxis of spontaneous bacterial peritonitis on 01/10/2025 * 2nd dose of albumin for SBP prophylaxis given on 01/12/2025 * Continue IV Zosyn 3.75 g day 3 * GI On board, we will follow up with the recommendations. Alcoholic liver cirrhosis with ascites POA * Patient is known case of alcoholic liver cirrhosis with MELD score 10. * Patient had therapeutic paracentesis on 01/02/2025, cell count showed WBC 74238, neutrophils 86, RBC 235 * Patient was discharged on oral antibiotics, however presented back on 01/10 as his PCP prompted due to elevated WBC * Patient awaiting therapeutic paracentesis by Interventional Radiology on 01/14/2025 * Repeat PT INR and CBC tomorrow Severe Acute leukocytosis POA * Patient came to ED for evaluation of increased white count which was recommended by his PCP * On arrival CBC showed white count of 24.5 * White Count trended down to 9.3 On 01/13/2025 * Continue IV antibiotics, we will trend WBC. Recent Left leg cellulitis POA * Patient was admitted to this facility for lower extremity cellulitis on 01/01/2025 * He was discharged home on Ceftin 500 mg p.o. twice daily fluconazole 200 mg p.o. daily * Patient admitted that he did not complete the prescribed antibiotics after discharge * New IV Zosyn 3.375 g day 3 * ID on board we will follow up with the recommendations Protonix 40 mg IV daily for GI prophylaxis We will replace electrolytes as needed per protocol We will start on insulin sliding scale q.4 hours with hypoglycemia protocol We will add prn medication for fever,pain,cough , nausea and vomiting ATTESTATION BY PHYSICIAN I have seen and examined the patient. I reviewed the documentation, medical decision making, and treatment plan as noted by the resident physician above. I agree with the findings and plan of care. KATHY KING MD, HARSHAVARDHA MD Jan 13, 2025 15:25
--- NOTE | 2025-01-14 01:57 | PN ---
INFECTIOUS DISEASE FOLLOWUP NOTE SUBJECTIVE: The patient was seen and examined at bedside today. The patient has no fever and no chills. No nausea. No vomiting. Abdominal pain is better. No depression. No suicidal ideation. ____. No dysuria or hematuria. No bleeding tendency. PHYSICAL EXAMINATION: VITAL SIGNS: Temperature today 97.3. EYES: No icterus. Pupils equal and reactive. HENT: No oral thrush seen. Moist oral mucosa. NECK: Supple. No JVD or thyromegaly. LUNGS: Good air entry. No rales. No rhonchi. CARDIOVASCULAR: S1 and S2, regular. No murmur heard. ABDOMEN: Full, soft. Bowel sounds present. . CENTRAL NERVOUS SYSTEM: Awake, alert and oriented x3. No focal deficits. SKIN: No rashes. LYMPHATICS: No peripheral lymphadenopathy. BACK: No deformity. No pressure ulcer. LABORATORY DATA: ____. ASSESSMENT: A 69-year-old male admitted with: * ____ possible spontaneous bacterial peritonitis. * Ascites. * Possible SVT. * Liver cirrhosis. * ____. PLAN: * Continue ____. * Continue pain management. * Continue ____. * Continue nutritional support * Continue GI prophylaxis. * Monitor electrolytes. * The patient will be followed closely. TID: [id number] RECEIPT: [id number]
[2025-01-14 03:25] VITALS: BP 112/57; PULSE 91; RESP 20; TEMP 98.9
--- NOTE | 2025-01-14 03:47 | PN ---
INFECTIOUS DISEASE FOLLOWUP NOTE DATE OF SERVICE: 01/12/2025. SUBJECTIVE: The patient was seen and examined at bedside today. The patient has no fever and no chills. No nausea. No vomiting. Abdominal pain is better. No depression. No suicidal ideation. No heat or cold intolerance. No dysuria or hematuria. No bleeding tendency. PHYSICAL EXAMINATION: VITAL SIGNS: Temperature today 97.3. EYES: No icterus. Pupils equal and reactive. HENT: No oral thrush seen. Moist oral mucosa. NECK: Supple. No JVD or thyromegaly. LUNGS: Good air entry. No rales. No rhonchi. CARDIOVASCULAR: S1 and S2, regular. No murmur heard. ABDOMEN: Full, soft. Bowel sounds present. CENTRAL NERVOUS SYSTEM: Awake, alert and oriented x3. No focal deficits. SKIN: No rashes. LYMPHATICS: No peripheral lymphadenopathy. BACK: No deformity. No pressure ulcer. EXTREMITIES: . LABORATORY DATA: WBC 14.1, hemoglobin 8.7, and platelets 347. ASSESSMENT: A 69-year-old male admitted with abnorma lab. Current problem include: * Possible spontaneous bacterial peritonitis. * Alcoholic liver cirrhosis. * Ascites. * Cellulitis. * Dementia. * Leukocytosis. PLAN: * Continue pain management. * Continue Zosyn. * Continue nutritional as above. * Continue DVT prophylaxis. * Continue antiemetics. * Monitor electrolytes. * The patient will be followed closely. TID: [id number] RECEIPT: [id number]
[2025-01-14 04:19] LABS: IMMATURE GRANULOCYTE ABSOLUTE 0.60 K/uL (0-1); NUCLEATED RED BLOOD CELLS 0.0 % (0.0-0.19); PLATELET COUNT (AUTO) 407 K/uL (130-400); RED BLOOD CELL COUNT(AUTO) 2.69 MIL/uL (4.50-6.20); RED CELL DISTRIBUTION WIDTH 16.5 % (11.0-15.5); WHITE BLOOD COUNT (AUTO) 11.1 K/uL (4.8-10.8)
[2025-01-14 04:23] LABS: INR 1.22 (0.85-1.15)
[2025-01-14 04:31] LABS: ASPARTATE AMINOTRANSFERASE 23.0 U/L (10-37); CREATININE 1.2 mg/dL (0.5-1.3); GLOMERULAR FILTR. RATE CALC 65.0 mL/min (>90); GLUCOSE,RANDOM 180.0 mg/dL (70-105); SODIUM SERUM 140.0 mmol/L (136-145); TOTAL PROTEIN, SERUM 7.0 g/dL (6.0-8.3); UREA NITROGEN, BLOOD 20.0 mg/dL (7-18)
[2025-01-14 07:30] VITALS: BP 117/58; PULSE 94; RESP 20; TEMP 98.6
[2025-01-14 08:00] VITALS: O2SAT 96
[2025-01-14] MEDS: ZOSYN 3.375GM +NS 50ML IVPB SCH (10:40)
[2025-01-14 12:00] VITALS: BP 151/55; PULSE 92; RESP 20; TEMP 98.6
--- NOTE | 2025-01-14 12:38 | PN ---
[facility] PROGRESS NOTE Date of Service: Jan 14, 2025 Time of Service: 12:27 SUBJECTIVE: This is a 69-year-old male past medical history of diabetes type 2, CKD stage III, alcohol liver cirrhosis with recurrent paracentesis, debility and umbilical hernia presents to the ED for evaluation of abnormal lab results.Patient reports he went to see his PCP at [facility] and lab works were done and was told his WBC was elevated and was instructed to come to the Ed for evaluation.Patient was recently admitted in this facility on 01/01/2025 for left lower extremity cellulitis and patient received antibiotic treatment and was discharged home on 01/03/2025.Patient states he had Paracentesis done on 01/02/2025 and 4.5 L of fluid was removed.Ascitic fluid WBC 16,324 ,RBC 235 and neutrophils Patient also reports he used to be a heavy cigarette smoker (1pack /day and a heavy alcohol drinker( 6pcks beer/day) x 40 years and quit on both 5 years ago. Patient denies fever,chills,cough,chest pain,palpitation,shortness of breath,nausea,vomiti ng,bloody emesis ,bloody stool,diarrhea and abdominal pain.Patient reports he feels fine he denies any symptoms .Primary nurse was at bedside during my evaluation. Latest vital signs temperature 97.5, heart rate 73, blood pressure 133/62 saturation 98% on room air. Labs: WBC 24 with negative left shift of neutrophils 90, hemoglobin 8, hematocrit 26, platelet count 298. Sodium 130, potassium 4.2, chloride 94, CO2 27, BUN 41, creatinine 1.6, GFR 46 glucose 419 lactic acid two total CK 21 troponin six albumin 2.8. ABG result: PH 7.46, CO2 35, PO2 82, bicarb 24, O2 saturation 95 base excess one. Urinalysis is significant with urine glucose above 1000 otherwise unremarkable. Chest x-ray result revealed no acute cardiopulmonary pathology is evident. While in the ER patient received, patient received Rocephin 1 g IV and insulin 15 units. We will admit patient for further medical management 01/11/2025: Patient was seen and evaluated bedside in ED 17. Case discussed with RN, no acute overnight events. He is awake alert oriented x3, denies abdominal pain, shortness of breath, chest pain, palpitations. Lab shows white count of 24.4, lactic acid 2.8, procal 0.14. CT abdomen and pelvis showed liver cirrhosis, portal cavernoma with multiple dilated tortuous venous collateral vessels in abdomen and pelvis. Pending paracentesis. Patient received 1st dose of albumin for spontaneous bacterial peritonitis yesterday. Rocephin was stopped, Patient was started on Zosyn and ID was consulted . 01/12/2025: Patient was seen and evaluated bedside in room 204. Patient is awake alert oriented x3, denies abdominal pain, shortness of breath, confusion. White count has trended down to 14.1, ammonia 20, iron 26,% saturation 12. Patient will receive Venofer 300 mg IV today, lactulose 20 mg b.i.d. has been started. Patient is scheduled for therapeutic paracentesis by IR on Tuesday. Continue IV antibiotics, venofer, lactulose, insulin sliding scale. 01/13/2025: Patient was seen and evaluated bedside in room 204. Patient is awake alert oriented x3, denies abdominal pain, shortness of breath, confusion. White count has trended down to 9.3, and his ammonia 20, iron 26,% saturation 12. Patient received 2 bags of 300 mg IV Venofer since yesterday. Patient is awaiting therapeutic paracentesis by IR on Tuesday. Continue IV antibiotics, lactulose, insulin sliding scale. 01/14/2025: Patient was seen and evaluated bedside in room 204. Patient is awake, alert, oriented x3. patient is currently on NPO, scheduled for therapeut ic paracentesis by IR this afternoon. Blood culture shows no growth after3 days. Continue IV antibiotics, lactulose, insulin sliding scale, diuretics. We will follow up with the patient after paracentesis. REVIEW OF SYSTEMS CONSTITUTIONAL: Denies fevers, chills, or night sweats. No unintentional weight loss reported. NEUROLOGICAL: Denies headache, amaurosis fugax, motor weakness, sensory deficit, vertigo/spinning sensation, gait abnormalities, or tremors. ENT: No hearing loss, otalgia, otorrhea, rhinitis, rhinorrhea, hoarseness, or sore throat. CARDIOVASCULAR: Denies any exertional angina, dyspnea on exertion, orthopnea, paroxysmal nocturnal dyspnea, palpitations, life-threatening arrhythmias, claudication. PULMONARY: Denies any shortness of breath, cough, phlegm/sputum, hemoptysis, pleuritic chest pain. SLEEP: Denies morning headaches, daytime somnolence or napping. Denies difficulty falling asleep, staying asleep, waking from sleep. Denies knowledge of snoring. GASTROINTESTINAL: Denies any type of dysphagia to either liquids or solids. Denies nausea, vomiting, pyrosis, early satiety, abdominal pain, diarrhea, constipation, or changes in stool consistency or caliber. Denies coffee-ground emesis, hematemesis, hematochezia, or melanotic stools. GENITOURINARY: Denies frequency, urgency, nocturia, hematuria or incontinence (Storage/Irritative symptoms.) Low urinary stream, straining to void, urinary intermittency or hesitancy, splitting of the voiding stream, terminal dribbling. ENDOCRINOLOGIC: Denies polyuria, polydipsia, polyphagia or heat/cold intolerances. HEMATOLOGIC: Denies thrombophilia/previous clots, or coagulopathy/bleeding disorders. ONCOLOGIC: Denies personal history of malignancy. DERMATOLOGIC: Denies rashes or pruritus. PSYCHIATRIC: Denies any suicidal or homicidal ideation. Denies hallucinations. PHYSICAL EXAM GENERAL APPEARANCE: The patient is awake, alert, and oriented, in no acute cardiopulmonary distress. NEUROLOGICAL: Cranial nerves II-XII grossly intact. Motor is 5/5 in bilateral upper and lower extremities proximal to distal. No sensory deficits. HEENT: Face is symmetric. Pupils are equal and reactive. Extraocular movements are intact. NECK: Supple. No JVD. No thyromegaly. No submental, submandibular, pre- /postauricular, occipital or supraclavicular lymphadenopathy. CHEST: Normal chest expansion. No Telemetry. LUNGS: Absence of any rales, rhonchi or any wheezing. CARDIOVASCULAR: Regular. S1 and S2 normal. No appreciable rubs, murmurs or gallops. ABDOMEN: Soft, nontender and round . There is no rebound, voluntary guarding, or rigidity. : Deferred. No Rayo. EXTREMITIES: Left leg slightly swollen and with erythema recent left leg cellulitis . SKIN: Petechiae to both arms Vital Signs (last 8hr) Date Time Temp Pulse Resp B/P (MAP) Pulse Ox O2 Delivery O2 Flow Rate FiO2 01/14/25 07:30 98.6 94 20 117/58 96 Room Air LABS: Laboratory: Test 01/14/25 11:19 01/14/25 03:49 01/13/25 00:11 Range/Units Whole Blood Glucose 267 #H 70-110 MG/DL White Blood Count 11.1 H 4.8-10.8 K/uL Red Blood Count 2.69 L 4.50-6.20 MIL/uL Hemoglobin 9.1 L 14.0-18.0 g/dL Hematocrit 27.9 L 42-54 % Mean Corpuscular Volume 103.7 H 79-99 fL Mean Corpuscular Hemoglobin 33.8 H 27.0-33.0 pg Mean Corpuscular Hemoglobin Concent 32.6 32.0-36.0 g/dL Red Cell Distribution Width 16.5 H 11.0-15.5 % Platelet Count 407 H 130-400 K/uL Mean Platelet Volume 9.7 7.5-10.5 fL Immature Granulocyte % (Auto) 5.4 H 0-1 % Neutrophils (%) (Auto) 69.5 40.0-77.0 % Lymphocytes (%) (Auto) 12.8 L 21.0-51.0 % Monocytes (%) (Auto) 9.1 3.0-13.0 % Eosinophils (%) (Auto) 1.5 0.0-8.0 % Basophils (%) (Auto) 1.7 0.0-5.0 % Neutrophils # (Auto) 7.7 1.8-7.7 K/uL Lymphocytes # (Auto) 1.4 1.0-4.8 K/uL Monocytes # (Auto) 1.0 0.1-1.0 K/uL Eosinophils # (Auto) 0.17 0.00-0.70 K/uL Basophils # (Auto) 0.19 0.00-0.20 K/uL Absolute Immature Granulocyte (auto 0.60 0-1 K/uL Nucleated Red Blood Cells 0.0 0.0-0.19 % Prothrombin Time 12.7 H 9.6-11.6 SEC Prothromb Time International Ratio 1.22 H 0.85-1.15 Activated Partial Thromboplast Time 32.4 26.3-35.5 SEC Sodium Level 140 136-145 mmol/L Potassium Level 3.6 3.5-5.1 mmol/L Chloride Level 102 101-111 mmol/L Carbon Dioxide Level 29 21-32 mmol/L Blood Urea Nitrogen 20 H 7-18 mg/dL Creatinine 1.2 0.5-1.3 mg/dL Glomerular Filtration Rate Calc 65 >90 mL/min Random Glucose 180 H 70-105 mg/dL Total Calcium 8.7 8.5-10.1 mg/dL Magnesium Level 1.60 L 1.80-2.40 mg/dL Total Bilirubin 1.0 0.2-1.0 mg/dL Aspartate Amino Transf (AST/SGOT) 23 10-37 U/L Alanine Aminotransferase (ALT/SGPT) 33 12-78 U/L Alkaline Phosphatase 110 50-136 U/L Total Protein 7.0 6.0-8.3 g/dL Albumin 3.0 L 3.5-5.0 g/dL Bedside Glucose Comment Notified Nurse Current Medications Medications (Trade) Dose Ordered Sig/Azael Route PRN Reason Start Time Stop Time Status Last Admin Dose Admin Acetaminophen (TYLenol 325MG TAB) 650 mg Q4H PRN PO MILD PAIN (1-3) 01/11/25 00:00 02/10/25 00:00 Acetaminophen (TYLenol 325MG TAB) 650 mg Q6H PRN PO TEMPERATURE GREATER THAN 101.5 01/11/25 00:00 02/10/25 00:00 Albumin Human 100 ml @ 0 mls/hr Q6H IV 01/11/25 00:00 01/11/25 06:01 DC 01/11/25 06:33 100 MLS/HR Ceftriaxone Sodium 1 gm/ Sodium Chloride 50 ml @ 100 mls/hr Q24H IV 01/11/25 00:00 01/10/25 23:55 DC Ceftriaxone Sodium (ROCEphine 1G INJ) 1 gm ONCE IVPB 01/10/25 19:00 01/10/25 23:46 DC 01/10/25 22:20 1 GM Ceftriaxone Sodium (ROCEphine 1G INJ) 1 gm Q24H IVPB 01/11/25 23:45 01/11/25 10:20 DC Dextrose (D50w) 50 ml AD PRN IV HYPOGLYCEMIA PROTOCOL 01/11/25 00:00 02/10/25 00:00 Furosemide (LASix 40MG TAB) 40 mg BID PO 01/12/25 21:00 02/11/25 20:59 01/13/25 20:24 40 MG Glucagon (Glucagon 1mg Kit) 1 mg AD PRN IM HYPOGLYCEMIA PROTOCOL 01/11/25 00:00 02/10/25 00:00 Insulin Human Regular (humuLIN R 100 UNIT/ML 3ML) INSULIN SLIDING SCAL... ACHS SQ 01/14/25 11:30 02/10/25 00:00 Insulin Human Regular (humuLIN R 100 UNIT/ML 3ML) INSULIN SLIDING SCAL... Q4H SQ 01/11/25 00:00 01/14/25 08:19 DC 01/13/25 20:23 7 UNIT Iron Sucrose (VenoFER) 300 mg Q24H IVP 01/12/25 13:30 01/12/25 13:29 DC Iron Sucrose 300 mg/Sodium Chloride 250 ml @ 83 mls/hr Q24H IV 01/12/25 14:00 01/13/25 17:01 DC 01/13/25 13:11 83 MLS/HR Lactulose (Constulose 20gm/ 30ml Udcup) 20 gm BID PRN PO CONSTIPATION 01/12/25 13:30 02/11/25 13:29 Lactulose (Constulose 20gm/ 30ml Udcup) 20 gm TID PO 01/12/25 14:00 01/12/25 13:23 DC Magnesium Sulfate 50 ml @ 0 mls/hr PROTOCOL PRN IV OTHER [SEE ORDER COMMENTS] 01/11/25 00:00 02/10/25 00:00 01/14/25 06:44 25 MLS/HR Ondansetron HCl (zoFRAN 4MG INJ) 4 mg Q6H PRN IV NAUSEA/VOMITING 01/11/25 00:00 02/10/25 00:00 Pantoprazole Sodium (PROTonix 40MG TAB) 40 mg DAILY PO 01/11/25 09:00 02/10/25 08:59 01/13/25 08:25 40 MG Piperacillin Sod/ Tazobactam Sod (Zosyn 3.375gm+NS 50ml) 3.375 gm Q8H IVPB 01/11/25 10:30 01/14/25 08:16 DC 01/14/25 01:44 3.375 GM Piperacillin Sod/ Tazobactam Sod (Zosyn 3.375gm+NS 50ml) 3.375 gm Q8H IVPB 01/14/25 10:30 01/24/25 10:29 01/14/25 10:40 3.375 GM Potassium Chloride 100 ml @ 100 mls/hr AD PRN IV POTASSIUM PROTOCOL 01/11/25 00:00 02/10/25 00:00 Potassium Chloride (K-Dur/Klor-Con 20meq) 20 meq AD PRN PO POTASSIUM PROTOCOL 01/11/25 00:00 02/10/25 00:00 01/13/25 08:26 20 MEQ Potassium Chloride (KCl 10% Elixir 20meq/15ml) 20 meq AD PRN PO POTASSIUM PROTOCOL 01/11/25 00:00 02/10/25 00:00 Propranolol HCl (Inderal) 10 mg TID PO 01/12/25 21:00 02/11/25 20:59 01/13/25 20:23 10 MG Spironolactone (Aldactone 25mg) 50 mg DAILY PO 01/13/25 09:00 02/12/25 08:59 01/13/25 08:26 50 MG DIAGNOSTICS / RADIOLOGY: [ ] ASSESSMENT: Spontaneous bacterial peritonitis 2/2 recurrent paracentesis(ascitic fluid WBC 16,324 on 01/02/2025) POA Alcoholic liver cirrhosis with ascites POA Acute Kidney injury in cirrhosis POA Uncontrolled Diabetes type 2 with hyperglycemia POA Severe Acute leukocytosis POA Acute on chronic anemia POA Recent Left leg cellulitis POA Pseudohyponatremia secondary to hyperglycemia, resolved Protein calorie malnutrition, poa Umbilical hernia POA Right inguinal scrotal hernia POA PLAN: Spontaneous bacterial peritonitis 2/2 recurrent paracentesis(ascitic fluid WBC 16,324 on 01/02/2025) POA * Patient is known case of liver cirrhosis with recurrent paracentesis and the recent one done on 01/02/2025 * Cell count from last paracentesis shows WBC count 10231, neutrophils 86, RBC 235 * On presentation CBC showed white count of 24.5, trended down to 14.1 On 01/12/2025 * Received 1st dose of albumin for prophylaxis of spontaneous bacterial peritonitis on 01/10/2025 * 2nd dose of albumin for SBP prophylaxis given on 01/12/2025 * Continue IV Zosyn 3.75 g day 4 * GI On board, we will follow up with the recommendations. Alcoholic liver cirrhosis with ascites POA * Patient is known case of alcoholic liver cirrhosis with MELD score 10. * Patient had therapeutic paracentesis on 01/02/2025, cell count showed WBC 23213, neutrophils 86, RBC 235 * Patient was discharged on oral antibiotics, however presented back on 01/10 as his PCP prompted due to elevated WBC * Patient currently on NPO, scheduled for therapeutic paracentesis by Interventional Radiology this afternoon * Repeat labs tomorrow Severe Acute leukocytosis POA * Patient came to ED for evaluation of increased white count which was recommended by his PCP * On arrival CBC showed white count of 24.5 * White Count trended down to 11.1 On 01/13/2025 * Continue IV antibiotics, we will trend WBC. Recent Left leg cellulitis POA * Patient was admitted to this facility for lower extremity cellulitis on 01/01/2025 * He was discharged home on Ceftin 500 mg p.o. twice daily fluconazole 200 mg p.o. daily * Patient admitted that he did not complete the prescribed antibiotics after discharge * New IV Zosyn 3.375 g day 4 * ID on board we will follow up with the recommendations Protonix 40 mg IV daily for GI prophylaxis We will replace electrolytes as needed per protocol We will start on insulin sliding scale q.4 hours with hypoglycemia protocol We will add prn medication for fever,pain,cough , nausea and vomiting ATTESTATION BY PHYSICIAN I have seen and examined the patient. I reviewed the documentation, medical decision making, and treatment plan as noted by the resident above. I agree with the findings and plan of care. Jerry Lindsey IV, MD, ADIL SHAH QUADRI MD Jan 14, 2025 12:38
--- NOTE | 2025-01-14 13:30 | NUR ---
RE: PARACENTESIS IMAGES TAKEN AND REVIEWED BY DR Leanna SOLORZANO. NOT ENOUGH FLUID SEEN FOR PROCEDURE TO BE DONE SAFELY. PROCEDURE CANCELLED. PROCEDURE OUTCOME REPORTED PATIENT AND VERBALIZED UNDERSTANDING. REPORT GIFEN TO TOAN, RN AND PATIENT TRANSPORTED TO [facility] [place] [facility] [place] VIA BED AT 1330.
--- NOTE | 2025-01-14 15:01 | DS ---
Discharge Summary Hospital Course Summary: This is a 69-year-old male past medical history of diabetes type 2, CKD stage III, alcohol liver cirrhosis with recurrent paracentesis, debility and umbilical hernia presents to the ED for evaluation of abnormal lab results.Patient reports he went to see his PCP at the [facility] and lab works were done and was told his WBC was elevated and was instructed to come to the Ed for evaluation.Patient was recently admitted in this facility on 01/01/2025 for left lower extremity cellulitis and patient received antibiotic treatment and was discharged home on 01/03/2025.Patient states he had Paracentesis done on 01/02/2025 and 4.5 L of fluid was removed. Ascitic fluid WBC 16,324 ,RBC 235 and neutrophils Patient also reports he used to be a heavy cigarette smoker (1pack /day and a heavy alcohol drinker( 6pcks beer/day) x 40 years and quit on both 5 years ago. Patient is ambulatory using a cane. Patient appears comfortable.Patient denies fever,chills,cough,chest pain,palpitation,shortness of breath,nausea,vomiting,bloody emesis ,bloody stool,diarrhea and abdominal pain.Patient reports he feels fine he denies any symptoms .Primary nurse was at bedside during my evaluation. vital signs temperature 97.5, heart rate 73, blood pressure 133/62 saturation 98% on room air. Labs: WBC 24 with negative left shift of neutrophils 90, hemoglobin 8, hematocrit 26, platelet count 298. Sodium 130, potassium 4.2, chloride 94, CO2 27, BUN 41, creatinine 1.6, GFR 46 glucose 419 lactic acid two total CK 21 troponin six albumin 2.8. ABG result: PH 7.46, CO2 35, PO2 82, bicarb 24, O2 saturation 95 base excess one. Urinalysis is significant with urine glucose above 1000 otherwise unremarkable. Chest x-ray result revealed no acute cardiopulmonary pathology is evident. While in the ER patient received, patient received Rocephin 1 g IV and insulin 15 units. Patient got admitted for further medical management. On admission patient received spontaneous bacterial peritonitis prophylaxis with albumin on 01/10/2025 and 01/12/2025. IV Rocephin has been stopped and patient was started on IV Zosyn, lactulose 20 mg b.i.d. iron panel showed iron 26, TIBC 216,% saturation 12. Patient received2 bags of IV Venofer. Patient was scheduled for diagnostic paracentesis by IR on 01/14/2025 for evaluation of possible spontaneous bacterial peritonitis. Paracentesis was attempted but no significant ascitic fluid was present for analysis. The patient remained clinically stable throughout hospitalization with no signs of infection or decompensation. He is being discharged home in stable condition. We advised the patient to take oral antibiotics at home, return to ED if fever, confusion, abdominal pain, or signs of recurrent fluid accumulation occur. We advised the patient to follow up with PCP in 1-2 weeks, follow up with GI in 1-2 weeks. Production Shift Supervisor(s): CONSULTATION REPORT Name: EDWAR LOPEZ JR Acct: [id number] MR: [id number] : 1955 Admit Date: 01/10/25 CLAUDIO ESTEBAN [employer] [facility] [address] [place] [id number] GASTROENTEROLOGY CONSULTATION NOTE Date of Consultation: Jan 11, 2025 Time of Consultation: 16:55 History of Present Illness: 69-year-old with past medical history of chronic kidney disease stage III, alcoholic liver cirrhosis and recurrent paracentesis presents to the emergency room for evaluation of abnormal labs and generalized weakness. We are consulted due to concern for spontaneous bacterial peritonitis due to recurrent par acentesis. Patient seen and examined at bedside. Patient is awake alert and oriented x 3. He reports last EtOH intake was 5 years ago. Abdomen is rounded and distended. Per RN, patient is scheduled to undergo paracentesis on Tuesday. Patient denies any fever chills nausea or vomiting, hematochezia/melena. Review of Systems: CONSTITUTIONAL: No malaise or change in sensation of wellbeing. ENMT: No rhinorrhea, otorrhea, sinus pain, ear ache. CARDIOVASCULAR: No angina, palpitations, orthopnea or paroxysmal dyspnea. RESPIRATORY: No SOB. GASTROINTESTINAL: No abdominal pain, nausea, vomiting, diarrhea, hematemesis, melena or change in the patient's habitual bowel movements consistency/number. GENITOURINARY: No dysuria, hematuria or change in bladder continence. MUSCULOSKELETAL: No new muscle pain or decrease in muscular strength. No new joint swelling, redness or tenderness. SKIN: No new rash. Past Medical History: [ ] Past Surgical History: [ ] Past Social History: [ ] Family History: [ ] Coded Allergies: No Known Allergies (Unverified Allergy, Unknown, 10/13/21) Physical Exam: GEN: Awake, alert, oriented in person, time and place, and in no acute distress. HEENT: No sinus tenderness. Tympanic membranes were not examined. No rhinorrhea. Oral pharyngeal mucosa is pink, moist and within normal limits. Neck is supple with no cervical lymphadenopathy, thyromegaly or JVD. CHEST: Inspection, palpation and percussion of the chest were unremarkable. Lung auscultation revealed normal breath sounds bilaterally. CARDIAC: PMI is within normal limits. Heart sounds are regular. Normal S1, S2. No gallop or murmur. ABD: Soft, non-tender and not distended. No peritoneal signs on palpation. No organomegaly. Normal bowel sounds. EXT: No cyanosis or clubbing. No edema. SKIN: Intact. No rashes. JOINTS: No evidence of synovitis or acute arthritis. NEURO: Alert and oriented to name, place and person. Cranial nerve examination is unremarkable. No focal motor deficits. Normal speech. Gait is normal. Strength is normal. Vital Sign (Last 24 Hours) 01/11/25 16:52 Temp 98.2 Pulse 71 Resp 12 B/P (MAP) 117/52 Pulse Ox 100 O2 Delivery Room Air* O2 Flow Rate 0 FiO2 21 Intake & Output (last 24hrs) 01/10/25 01/10/25 01/11/25 15:00 23:00 07:00 Output Total 550 ml Balance -550 ml Laboratory: [ ] Laboratory: Test 01/11/25 16:49 01/11/25 09:43 01/11/25 05:52 01/10/25 21:40 Range/Units Whole Blood Glucose 136 H 70-110 MG/DL Lactic Acid Level 1.6 0.8-2.5 mmol/L Ammonia 20 11-32 umol/L White Blood Count 24.4 H 4.8-10.8 K/uL Red Blood Count 2.51 L 4.50-6.20 MIL/uL Hemoglobin 8.7 L 14.0-18.0 g/dL Hematocrit 25.6 L 42-54 % Mean Corpuscular Volume 102.0 H 79-99 fL Mean Corpuscular Hemoglobin 34.7 H 27.0-33.0 pg Mean Corpuscular Hemoglobin Concent 34.0 32.0-36.0 g/dL Red Cell Distribution Width 16.5 H 11.0-15.5 % Platelet Count 329 130-400 K/uL Mean Platelet Volume 10.1 7.5-10.5 fL Immature Granulocyte % (Auto) 1.4 H 0-1 % Neutrophils (%) (Auto) 91.8 H 40.0-77.0 % Lymphocytes (%) (Auto) 2.7 L 21.0-51.0 % Monocytes (%) (Auto) 3.2 3.0-13.0 % Eosinophils (%) (Auto) 0.7 0.0-8.0 % Basophils (%) (Auto) 0.2 0.0-5.0 % Neutrophils # (Auto) 22.4 H 1.8-7.7 K/uL Lymphocytes # (Auto) 0.7 L 1.0-4.8 K/uL Monocytes # (Auto) 0.8 0.1-1.0 K/uL Eosinophils # (Auto) 0.17 0.00-0.70 K/uL Basophils # (Auto) 0.06 0.00-0.20 K/uL Absolute Immature Granulocyte (auto 0.35 0-1 K/uL Nucleated Red Blood Cells 0.0 0.0-0.19 % Sodium Level 136 136-145 mmol/L Potassium Level 3.9 3.5-5.1 mmol/L Chloride Level 100 L 101-111 mmol/L Carbon Dioxide Level 29 21-32 mmol/L Blood Urea Nitrogen 31 H 7-18 mg/dL Creatinine 1.1 0.5-1.3 mg/dL Glomerular Filtration Rate Calc 72 >90 mL/min Random Glucose 103 # 70-105 mg/dL Total Calcium 8.8 8.5-10.1 mg/dL Magnesium Level 1.70 L 1.80-2.40 mg/dL Total Bilirubin 0.7 0.2-1.0 mg/dL Direct Bilirubin 0.3 0.0-0.3 mg/dL Aspartate Amino Transf (AST/SGOT) 27 10-37 U/L Alanine Aminotransferase (ALT/SGPT) 31 12-78 U/L Alkaline Phosphatase 136 50-136 U/L Total Protein 7.1 6.0-8.3 g/dL Albumin 3.0 L 3.5-5.0 g/dL Procalcitonin 0.14 0.05-0.5 ng/mL Urine Color YELLOW YELLOW Urine Appearance CLEAR CLEAR Urine pH 6.0 5.0-8.0 Urine Specific Fletcher 1.009 1.001-1.031 Urine Protein NEGATIVE NEGATIVE mg/dL Urine Glucose (UA) >=1000 H NEGATIVE mg/dL Urine Ketones NEGATIVE NEGATIVE mg/dL Urine Occult Blood NEGATIVE NEGATIVE Urine Nitrate NEGATIVE NEGATIVE Urine Bilirubin NEGATIVE NEGATIVE mg/dL Urine Urobilinogen 0.2 0.2-1.0 mg/dL Urine Leukocyte Esterase NEGATIVE NEGATIVE Shelby/uL Urine RBC None 0-1 /HPF Urine WBC 0-1 0-1 /HPF Urine Squamous Epithelial Cells FEW 0-2 /HPF Urine Bacteria RARE None Seen /HPF Urine Hyaline Casts 0-1 0-1 /LPF /LPF Urine Other Casts 1 None Seen /LPF Test 01/10/25 19:56 01/10/25 17:44 Range/Units Blood Gas Specimen Type Arterial Arterial Blood pH 7.466 H 7.350-7.450 Arterial Blood Partial Pressure CO2 35 35-48 mmHg Arterial Blood Partial Pressure O2 82.7 L 83.0-108.0 mmHg Arterial Blood HCO3 24.5 21.0-28.0 mmol/L Arterial Blood Oxygen Saturation 95.9 94.0-98.0 % Arterial Blood Base Excess 1.0 -2.0-3.0 mmol/L Hemoglobin (Blood Gas) 9.6 L 13.5-17.5 g/dL Sodium (Blood Gas) 129 L 136-145 MMOL/L Bedside Potassium (Blood Gas) 4.4 3.4-4.5 MMOL/L Bedside Chloride (Blood Gas) 97 L 98-107 MMOL/L Bedside Glucose (Blood Gas) 430 *H 65-95 MG/DL Bedside Ionized Calcium (Blood Gas) 1.20 1.15-1.33 MMOL/L Bedside Lactic Acid (Blood Gas) 1.88 H 0.36-0.75 MMOL/L Blood Gas Temperature 37.0 35.5-37.0 CELSIUS Blood Gas Vent Mode RA ROOM AIR FiO2 21.0 % Blood Gas Specimen Comment RR White Cell Morphology Comment See comments Prothrombin Time 11.6 9.6-11.6 SEC Prothromb Time International Ratio 1.11 0.85-1.15 Hemoglobin A1c 7.9 H 4.0-6.0 % Estimated Average Glucose (eAG) 180 H 70-126 mg/dL Total Creatine Kinase 21 # 21-232 U/L Troponin I High Sensitivity 6 4-75 ng/L Current Medications Medications (Trade) Dose Ordered Sig/Azael Route PRN Reason Start Time Stop Time Status Last Admin Dose Admin Acetaminophen (TYLenol 325MG TAB) 650 mg Q4H PRN PO MILD PAIN (1-3) 01/11/25 00:00 02/10/25 00:00 Acetaminophen (TYLenol 325MG TAB) 650 mg Q6H PRN PO TEMPERATURE GREATER THAN 101.5 01/11/25 00:00 02/10/25 00:00 Albumin Human 100 ml @ 0 mls/hr Q6H IV 01/11/25 00:00 01/11/25 06:01 DC 01/11/25 06:33 100 MLS/HR Ceftriaxone Sodium 1 gm/ Sodium Chloride 50 ml @ 100 mls/hr Q24H IV 01/11/25 00:00 01/10/25 23:55 DC Ceftriaxone Sodium (ROCEphine 1G INJ) 1 gm ONCE IVPB 01/10/25 19:00 01/10/25 23:46 DC 01/10/25 22:20 1 GM Ceftriaxone Sodium (ROCEphine 1G INJ) 1 gm Q24H IVPB 01/11/25 23:45 01/11/25 10:20 DC Dextrose (D50w) 50 ml AD PRN IV HYPOGLYCEMIA PROTOCOL 01/11/25 00:00 02/10/25 00:00 Glucagon (Glucagon 1mg Kit) 1 mg AD PRN IM HYPOGLYCEMIA PROTOCOL 01/11/25 00:00 02/10/25 00:00 Insulin Human Regular (humuLIN R 100 UNIT/ML 3ML) INSULIN SLIDING SCAL... Q4H SQ 01/11/25 00:00 02/10/25 00:00 Magnesium Sulfate 50 ml @ 0 mls/hr PROTOCOL PRN IV OTHER [SEE ORDER COMMENTS] 01/11/25 00:00 02/10/25 00:00 Ondansetron HCl (zoFRAN 4MG INJ) 4 mg Q6H PRN IV NAUSEA/VOMITING 01/11/25 00:00 02/10/25 00:00 Pantoprazole Sodium (PROTonix 40MG TAB) 40 mg DAILY PO 01/11/25 09:00 02/10/25 08:59 01/11/25 09:35 40 MG Piperacillin Sod/ Tazobactam Sod (Zosyn 3.375gm+NS 50ml) 3.375 gm Q8H IVPB 01/11/25 10:30 01/21/25 10:29 01/11/25 12:26 3.375 GM Potassium Chloride 100 ml @ 100 mls/hr AD PRN IV POTASSIUM PROTOCOL 01/11/25 00:00 02/10/25 00:00 Potassium Chloride (K-Dur/Klor-Con 20meq) 20 meq AD PRN PO POTASSIUM PROTOCOL 01/11/25 00:00 02/10/25 00:00 Potassium Chloride (KCl 10% Elixir 20meq/15ml) 20 meq AD PRN PO POTASSIUM PROTOCOL 01/11/25 00:00 02/10/25 00:00 Diagnostics / Radiology: [COPY/PASTE HERE IF NO REPORTS PLEASE DELETE SECTION] Assessment: Liver cirrhosis Ascites Concern for spontaneous bacterial peritonitis Leukocytosis Plan: Recommend therapeutic paracentesis. If more than 5 liters are removed, please give albumin 50 g IV Send ascites fluid for cell count with differential, albumin, total protein, cultures,and cytology Ceftriaxone 1 g IV q 24 hours for infection prophylaxis Will continue to monitor closely CLAUDIO ESTEBAN [facility] Jan 11, 2025 17:00 Electronically Signed by: CLAUDIO ESTEBAN [facility] 1700 Electronically Co-Signed by: CONSULTATION REPORT Name: EDWAR LOPEZ JR Acct: [id number] MR: [id number] : 1955 Admit Date: 01/10/25 JERRY BERG MD [address] [place] [id number] REFERRING PHYSICIAN: Dr. Mukherjee. REASON FOR CONSULTATION: Renal failure. HISTORY OF PRESENT ILLNESS: A 69-year-old male with a history of diabetes mellitus and hypertension. He has a history of known cirrhosis. The patient with previous paracentesis. The patient was just recently admitted to the hospital with cellulitis and was found to have significant renal dysfunction. The patient presents to the hospital with complaints of increasing abdominal pain. In the Emergency Room, the patient was found to have significant leukocytosis and started on antibiotics. The patient with ascites and is scheduled for paracentesis. He has had [id number] renal failure in the hospital and he is being seen in consultation for all the above. PAST MEDICAL HISTORY: Diabetes mellitus, hypertension, cirrhosis. PAST SURGICAL HISTORY: Paracentesis. SOCIAL HISTORY: He has a history of alcohol use. FAMILY HISTORY: No renal disease in the family. ALLERGIES: There are no allergies. MEDICATIONS: Noted. REVIEW OF SYSTEMS: GENERAL: The patient is feeling weak and tired. HEENT: No change in vision. No change in hearing. CARDIOVASCULAR: There are no current chest pains or palpitations. PULMONARY: He has got chronic shortness of breath. GASTROINTESTINAL: As described above. MUSCULOSKELETAL: Complains of weakness. NEUROLOGIC: No seizures or focal deficits. PSYCHIATRIC: No history of hallucinations or psychosis. ENDOCRINE: Diabetes mellitus. No history of thyroid disease. HEME: History of anemia. No history of malignancy. PHYSICAL EXAMINATION: VITAL SIGNS: Blood pressure is 105/42, pulse 80, he is afebrile. GENERAL: Chronically ill male, elderly, laying in bed on the medical floor. HEENT: Head is atraumatic. Pupils are equal, round, and reactive to light. Oropharynx without exudate. Nares are clear. NECK: There is no JVP. There is no thyromegaly. No masses. CARDIOVASCULAR: Regular. There is no S3 or S4 gallop. LUNGS: Coarse with equal thoracic movement. ABDOMEN: Soft. He does have ascites. EXTREMITIES: Reveal no clubbing, no cyanosis. NEUROLOGICAL: He is awake. He is alert. He is oriented. SKIN: Reveals no rashes or nodules. BACK: There is no CVA tenderness. No back deformities. LABORATORY DATA: CT scan reveals cirrhosis with the ascites. Sodium is 136, BUN 31, creatinine 1.1. Hemoglobin 8.7, hematocrit 25, white cell count is 24,000. Urinalysis revealed glucose in the urine. IMPRESSION: * [id number]-mj-[id number] renal failure. * Peritonitis. * Cirrhosis. * Anemia. * Hypertension. PLAN: The patient does present with significant renal dysfunction. Workup is consistent with peritonitis and he remains on the antibiotics. The patient is scheduled for the paracentesis. He does have underlying renal dysfunction. Creatinine is noted. We will continue to monitor chemistries closely. Electrolytes have all been aggressively repleted. The patient does have significant anemia. We will check iron levels for completeness. We will continue to follow closely. All labs will be repeated in the morning. TID: [id number] RECEIPT: [id number] Electronically Signed by: Electronically Co-Signed by: CONSULTATION REPORT Name: EDWAR LOPEZ JR Acct: [id number] MR: [id number] : 1955 Admit Date: 01/10/25 JACINTA VEGA MD [facility] [address] [place] [id number] INFECTIOUS DISEASE CONSULTATION NOTE Date of Service: Jan 11, 2025 Reason for Consultation: Spontaneous bacterial peritonitis Requesting Physician: GILDARDO KHOURY HISTORY OF PRESENT ILLNESS: This is a 69-year-old male with a past medical history significant for diabetes mellitus type 2, CKD stage III, alcoholic liver cirrhosis, and recurrent paracentesis, who presented to the ER for evaluation of abnormal laboratory results and general weakness. The patient was recently hospitalized from 01/03/2025 to 01/05/2025 for left lower extremity cellulitis, during which he was treated with IV antibiotic and underwent a therapeutic paracentesis with removal of 4 liters of ascitic fluid, which revealed WBC 16,324. Discharged on Ceftin 500 mg p.o. twice daily and fluconazole 200 mg p.o. daily. He admits he did not complete the prescribed antibiotic after discharge. No abdominal pain, cough, chest pain, shortness of breath, or urinary symptoms. No confusion or encephalopathy reported. Currently, he feels well and denies fever, chills, worsening leg pain, redness, or drainage. On examination today, the left lower extremity shows persistent erythema over the distal anterior tibial area. The skin is warm to touch but nontender, with no induration, fluctuance, open wounds, or drainage. Peripheral pulses are palpable and sensation is intact. ID was consulted for evaluation and management of spontaneous bacterial peritonitis and to provide recommendations regarding ongoing antibiotic therapy. REVIEW OF SYSTEMS CONSTITUTIONAL: Denies fever, chills, or fatigue. HEAD/FACE: No signs of trauma. EENT: Denies eye pain, blurred vision, double vision, or light sensitivity. RESPIRATORY: Denies shortness of breath, cough, wheezing CARDIOVASCULAR: Denies chest pain, palpitation, syncope GASTROINTESTINAL/ABDOMINAL: Denies abdominal pain, constipation, diarrhea, nausea or vomiting GENITOURINARY: Denies dysuria or hematuria. MUSCULOSKELETAL: Denies joint pain, tenderness, or trauma. INTEGUMENTARY: Denies rash or itchiness NEUROLOGICAL/PSYCH: Denies anxiety, depression, heat or cold intolerance. PAST MEDICAL HISTORY: DM type 2 CKD stage III ETOH liver cirrhosis with recurrent paracentesis debility and umbilical hernia PAST SURGICAL HISTORY: Multiple recurrent paracentesis PAST SOCIAL HISTORY: lives alone former heavy smoker former heavy ETOH consumption - quit 5 years ago denies illicit drug use FAMILY HISTORY: Noncontributory Coded Allergies: No Known Allergies (Unverified Allergy, Unknown, 10/13/21) PHYSICAL EXAM EYES: Anicteric. Pupils equal and reactive. HENT: No oral thrush seen, moist Oral mucosa NECK: Supple, no JVD or thyromegaly. LUNGS: Good air entry. No rales, no rhonchi. CARDIOVASCULAR: S1, S2 regular. No murmur heard. ABDOMEN: Soft, non tender, bowel sounds present, no organomegaly, distended, umbilical hernia CENTRAL NERVOUS SYSTEM: Awake, alert, oriented x 3. No focal deficits. SKIN: upper extremity bilateral petechiae. LYMPHATICS: No peripheral lymphadenopathy MUSCULOSKELETAL: No joint swelling, erythema or tenderness. EXTREMITIES: Left leg swollen with erythema and recurrent left leg cellulitis BACK: No deformity, no pressure ulcer. GENITOURINARY: No dysuria or hematuria Vital Sign (Last 24 Hours) 01/11/25 11:20 Temp 97.5 Pulse 71 Resp 17 B/P (MAP) 113/48 Pulse Ox 98 O2 Delivery Room Air* O2 Flow Rate 0 FiO2 21 Intake & Output (last 24hrs) 01/10/25 01/10/25 01/11/25 15:00 23:00 07:00 Output Total 550 ml Balance -550 ml LABS: Laboratory: Test 01/11/25 12:24 01/11/25 09:43 01/11/25 05:52 01/10/25 21:40 Range/Units Whole Blood Glucose 122 H 70-110 MG/DL Lactic Acid Level 1.6 0.8-2.5 mmol/L Ammonia 20 11-32 umol/L White Blood Count 24.4 H 4.8-10.8 K/uL Red Blood Count 2.51 L 4.50-6.20 MIL/uL Hemoglobin 8.7 L 14.0-18.0 g/dL Hematocrit 25.6 L 42-54 % Mean Corpuscular Volume 102.0 H 79-99 fL Mean Corpuscular Hemoglobin 34.7 H 27.0-33.0 pg Mean Corpuscular Hemoglobin Concent 34.0 32.0-36.0 g/dL Red Cell Distribution Width 16.5 H 11.0-15.5 % Platelet Count 329 130-400 K/uL Mean Platelet Volume 10.1 7.5-10.5 fL Immature Granulocyte % (Auto) 1.4 H 0-1 % Neutrophils (%) (Auto) 91.8 H 40.0-77.0 % Lymphocytes (%) (Auto) 2.7 L 21.0-51.0 % Monocytes (%) (Auto) 3.2 3.0-13.0 % Eosinophils (%) (Auto) 0.7 0.0-8.0 % Basophils (%) (Auto) 0.2 0.0-5.0 % Neutrophils # (Auto) 22.4 H 1.8-7.7 K/uL Lymphocytes # (Auto) 0.7 L 1.0-4.8 K/uL Monocytes # (Auto) 0.8 0.1-1.0 K/uL Eosinophils # (Auto) 0.17 0.00-0.70 K/uL Basophils # (Auto) 0.06 0.00-0.20 K/uL Absolute Immature Granulocyte (auto 0.35 0-1 K/uL Nucleated Red Blood Cells 0.0 0.0-0.19 % Sodium Level 136 136-145 mmol/L Potassium Level 3.9 3.5-5.1 mmol/L Chloride Level 100 L 101-111 mmol/L Carbon Dioxide Level 29 21-32 mmol/L Blood Urea Nitrogen 31 H 7-18 mg/dL Creatinine 1.1 0.5-1.3 mg/dL Glomerular Filtration Rate Calc 72 >90 mL/min Random Glucose 103 # 70-105 mg/dL Total Calcium 8.8 8.5-10.1 mg/dL Magnesium Level 1.70 L 1.80-2.40 mg/dL Total Bilirubin 0.7 0.2-1.0 mg/dL Direct Bilirubin 0.3 0.0-0.3 mg/dL Aspartate Amino Transf (AST/SGOT) 27 10-37 U/L Alanine Aminotransferase (ALT/SGPT) 31 12-78 U/L Alkaline Phosphatase 136 50-136 U/L Total Protein 7.1 6.0-8.3 g/dL Albumin 3.0 L 3.5-5.0 g/dL Procalcitonin 0.14 0.05-0.5 ng/mL Urine Color YELLOW YELLOW Urine Appearance CLEAR CLEAR Urine pH 6.0 5.0-8.0 Urine Specific Fletcher 1.009 1.001-1.031 Urine Protein NEGATIVE NEGATIVE mg/dL Urine Glucose (UA) >=1000 H NEGATIVE mg/dL Urine Ketones NEGATIVE NEGATIVE mg/dL Urine Occult Blood NEGATIVE NEGATIVE Urine Nitrate NEGATIVE NEGATIVE Urine Bilirubin NEGATIVE NEGATIVE mg/dL Urine Urobilinogen 0.2 0.2-1.0 mg/dL Urine Leukocyte Esterase NEGATIVE NEGATIVE Shelby/uL Urine RBC None 0-1 /HPF Urine WBC 0-1 0-1 /HPF Urine Squamous Epithelial Cells FEW 0-2 /HPF Urine Bacteria RARE None Seen /HPF Urine Hyaline Casts 0-1 0-1 /LPF /LPF Urine Other Casts 1 None Seen /LPF Test 01/10/25 19:56 01/10/25 17:44 Range/Units Blood Gas Specimen Type Arterial Arterial Blood pH 7.466 H 7.350-7.450 Arterial Blood Partial Pressure CO2 35 35-48 mmHg Arterial Blood Partial Pressure O2 82.7 L 83.0-108.0 mmHg Arterial Blood HCO3 24.5 21.0-28.0 mmol/L Arterial Blood Oxygen Saturation 95.9 94.0-98.0 % Arterial Blood Base Excess 1.0 -2.0-3.0 mmol/L Hemoglobin (Blood Gas) 9.6 L 13.5-17.5 g/dL Sodium (Blood Gas) 129 L 136-145 MMOL/L Bedside Potassium (Blood Gas) 4.4 3.4-4.5 MMOL/L Bedside Chloride (Blood Gas) 97 L 98-107 MMOL/L Bedside Glucose (Blood Gas) 430 *H 65-95 MG/DL Bedside Ionized Calcium (Blood Gas) 1.20 1.15-1.33 MMOL/L Bedside Lactic Acid (Blood Gas) 1.88 H 0.36-0.75 MMOL/L Blood Gas Temperature 37.0 35.5-37.0 CELSIUS Blood Gas Vent Mode RA ROOM AIR FiO2 21.0 % Blood Gas Specimen Comment RR White Cell Morphology Comment See comments Prothrombin Time 11.6 9.6-11.6 SEC Prothromb Time International Ratio 1.11 0.85-1.15 Hemoglobin A1c 7.9 H 4.0-6.0 % Estimated Average Glucose (eAG) 180 H 70-126 mg/dL Total Creatine Kinase 21 # 21-232 U/L Troponin I High Sensitivity 6 4-75 ng/L DIAGNOSTICS / RADIOLOGY: [place] [id number] [id number] IMAGING REPORT Signed PATIENT: EDWAR LOPEZ JR MR#: [id number] : 1955 SEX: M AGE: 69 LOCATION: [facility] ORDER 44 STATUS: [facility] REPORT#: [id number] SERVICE 42 REASON: sepsis ORDERING PHYSICIAN: ESTELA FINCH MD PROCEDURE: CXR1VW - CHEST 1VW EXAM: CR Chest, 1 View. CLINICAL HISTORY: sepsis COMPARISON: None provided. FINDINGS: LUNGS: The lungs show no infiltrate or other acute finding. PLEURAL SPACES: No evidence of pleural effusion or pneumothorax. MEDIASTINUM: The cardiomediastinal silhouette is within normal limits. BONES: No aggressive appearing osseous lesion seen. IMPRESSION: No acute cardiopulmonary pathology is evident. /[place] DICTATED BY: JACK BERNSTEIN Jr., MD DATE: 01/10/252099 ELECTRONICALLY SIGNED BY: JACK BERNSTEIN Jr., MD DATE: 01/10/252099 [place] [id number] [id number] IMAGING REPORT Signed PATIENT: EDWAR LOPEZ JR MR#: [id number] : 1955 SEX: M AGE: 69 [facility] STATUS: ADM IN REPORT#: [id number] SERVICE 53 REASON: cirrhosis ORDERING PHYSICIAN: ANTWAN LEARY MD PROCEDURE: ABD PELWWO - CT ABDOMEN/PELVIS W/WO CONTRAS EXAM: CT Abdomen and Pelvis without and with IV contrast. CLINICAL HISTORY: Cirrhosis. TECHNIQUE: Thin collimated axial CT images of the abdomen and pelvis were obtained, with sagittal and coronal reformatted images also submitted. A CT scan is done according to ALARA (As Low As Reasonably Achievable). CONTRAST: Omnipaque 350 COMPARISON: None. FINDINGS: Mild right pleural effusion. No focal abnormality within the pancreas, spleen, adrenals, or kidneys. The liver is small with diffuse surface nodularity, suggesting liver cirrhosis. The portal vein is replaced by a portal cavernoma. Multiple dilated tortuous venous collateral vessels in the abdomen and pelvis, predominantly in the right intrahepatic location. An 8 mm gallbladder calculus with no acute cholecystitis. Mild colonic diverticulosis with no acute diverticulitis. There is no obvious bowel wall thickening. Bowel loops are normal in caliber without evidence of obstruction or ileus. The appendix is normal. There is no abnormality within the urinary bladder. Unremarkable reproductive organs. Abdominal and pelvic vessels are patent. Scattered atherosclerotic wall calcifications in the abdominal aorta and its branches No lymphadenopathy. Mild ascites. Large right inguinal hernia containing omental fat and fluid. Small umbilical hernia containing omental fat and fluid. There is no acute osseous abnormality. Multilevel thoracolumbar spondylosis. IMPRESSIONS: Liver cirrhosis. Portal cavernoma with multiple dilated tortuous venous collateral vessels in the abdomen and pelvis. Cholelithiasis with no acute cholecystitis. Mild colonic diverticulosis with no acute diverticulitis. Mild ascites. Right inguinal and umbilical hernias. Mild right pleural effusion. /[place]grad[place] DICTATED BY: JACK BERNSTEIN Jr., MD DATE: 01/11/25148 ELECTRONICALLY SIGNED BY: JACK BERNSTEIN Jr., MD DATE: 01/11/25148 ASSESSMENT: Spontaneous bacterial peritonitis 2/2 recurrent paracentesis(ascitic fluid WBC 16,324 on 01/02/2025) POA Alcoholic liver cirrhosis with ascites POA Acute Kidney injury in cirrhosis POA Uncontrolled Diabetes type 2 with hyperglycemia POA Severe Acute leukocytosis POA Acute on chronic anemia POA Recent Left leg cellulitis POA POA Pseudohyponatremia secondary to hyperglycemia POA Protein calorie malnutrition POA Umbilical hernia POA Right inguinal scrotal hernia POA PLAN: Continue Zosyn Monitor labs in the AM Continue medical management per primary team Continue pain medications as needed Blood culture results pending Urine culture results pending ATTESTATION BY PHYSICIAN I have seen and examined the patient. I reviewed the documentation, medical decision making, and treatment plan as noted by the resident physician above. I agree with the findings and plan of care. Jay Wesley MD, GERARDO MD Jan 11, 2025 13:54 Electronically Signed by: JACINTA VEGA MD01/11/251534 Electronically Co-Signed by: Procedure(s): [place] [id number] [place] [address] [id number] IMAGING REPORT Signed PATIENT: EDWAR LOPEZ JR MR#: [id number] : 1955 SEX: M AGE: 69 LOCATION: [facility] ORDER 44 STATUS: [facility] REPORT#: [id number] SERVICE 42 REASON: sepsis ORDERING PHYSICIAN: ESTELA FINCH MD PROCEDURE: CXR1VW - CHEST 1VW EXAM: CR Chest, 1 View. CLINICAL HISTORY: sepsis COMPARISON: None provided. FINDINGS: LUNGS: The lungs show no infiltrate or other acute finding. PLEURAL SPACES: No evidence of pleural effusion or pneumothorax. MEDIASTINUM: The cardiomediastinal silhouette is within normal limits. BONES: No aggressive appearing osseous lesion seen. IMPRESSION: No acute cardiopulmonary pathology is evident. /[place] DICTATED BY: JACK BERNSTEIN Jr., MD DATE: 01/10/252099 ELECTRONICALLY SIGNED BY: JACK BERNSTEIN Jr., MD DATE: 01/10/252099 [place] [id number] [place] [id number] IMAGING REPORT Signed PATIENT: EDWAR LOPEZ JR MR#: [id number] : 1955 SEX: M AGE: 69 LOCATION: [facility] ORDER 53 STATUS: ADM IN REPORT#: [id number] SERVICE 53 REASON: cirrhosis ORDERING PHYSICIAN: ANTWAN LEARY MD PROCEDURE: ABD PELWWO - CT ABDOMEN/PELVIS W/WO CONTRAS EXAM: CT Abdomen and Pelvis without and with IV contrast. CLINICAL HISTORY: Cirrhosis. TECHNIQUE: Thin collimated axial CT images of the abdomen and pelvis were obtained, with sagittal and coronal reformatted images also submitted. A CT scan is done according to ALARA (As Low As Reasonably Achievable). CONTRAST: Omnipaque 350 COMPARISON: None. FINDINGS: Mild right pleural effusion. No focal abnormality within the pancreas, spleen, adrenals, or kidneys. The liver is small with diffuse surface nodularity, suggesting liver cirrhosis. The portal vein is replaced by a portal cavernoma. Multiple dilated tortuous venous collateral vessels in the abdomen and pelvis, predominantly in the right intrahepatic location. An 8 mm gallbladder calculus with no acute cholecystitis. Mild colonic diverticulosis with no acute diverticulitis. There is no obvious bowel wall thickening. Bowel loops are normal in caliber without evidence of obstruction or ileus. The appendix is normal. There is no abnormality within the urinary bladder. Unremarkable reproductive organs. Abdominal and pelvic vessels are patent. Scattered atherosclerotic wall calcifications in the abdominal aorta and its branches No lymphadenopathy. Mild ascites. Large right inguinal hernia containing omental fat and fluid. Small umbilical hernia containing omental fat and fluid. There is no acute osseous abnormality. Multilevel thoracolumbar spondylosis. IMPRESSIONS: Liver cirrhosis. Portal cavernoma with multiple dilated tortuous venous collateral vessels in the abdomen and pelvis. Cholelithiasis with no acute cholecystitis. Mild colonic diverticulosis with no acute diverticulitis. Mild ascites. Right inguinal and umbilical hernias. Mild right pleural effusion. /[place]grad[place] DICTATED BY: JACK BERNSTEIN Jr., MD DATE: 01/11/25148 ELECTRONICALLY SIGNED BY: JACK BERNSTEIN Jr., MD DATE: 01/11/25148 [address] [address] IMAGING REPORT Signed PATIENT: EDWAR LOPEZ JR MR#: [id number] : 1955 SEX: M AGE: 69 LOCATION: 2AH ORDER 2300 STATUS: ADM IN REPORT#: [id number] SERVICE 0700 REASON: liver chirrosis with ascitis ORDERING PHYSICIAN: FIDENCIO ROCA MD PROCEDURE: ABD WALL - US ABD LIMITED/ABD WALL Ascites SCAN History: Abdominal distention FINDINGS: There is no ascites seen throughout all 4 quadrants. IMPRESSION: No ascites identified. Therefore paracentesis was not performed DICTATED BY: LAYTON SOLORZANO MD DATE: 01/14/258 ELECTRONICALLY SIGNED BY: LAYTON SOLORZANO MD DATE: 01/14/251520 Assessment/Plan: ASSESSMENT: Spontaneous bacterial peritonitis 2/2 recurrent paracentesis(ascitic fluid WBC 16,324 on 01/02/2025) POA Alcoholic liver cirrhosis with ascites POA Acute Kidney injury in cirrhosis POA Uncontrolled Diabetes type 2 with hyperglycemia POA Severe Acute leukocytosis POA Acute on chronic anemia POA Recent Left leg cellulitis POA Pseudohyponatremia secondary to hyperglycemia, resolved Protein calorie malnutrition, poa Umbilical hernia POA Right inguinal scrotal hernia POA PLAN: Spontaneous bacterial peritonitis 2/2 recurrent paracentesis(ascitic fluid WBC 16,324 on 01/02/2025) POA * Patient is known case of liver cirrhosis with recurrent paracentesis and the recent one done on 01/02/2025 * Cell count from last paracentesis shows WBC count 49614, neutrophils 86, RBC 235 * On presentation CBC showed white count of 24.5, trended down to 14.1 On 01/12/2025 * Received 1st dose of albumin for prophylaxis of spontaneous bacterial peritonitis on 01/10/2025 * 2nd dose of albumin for SBP prophylaxis given on 01/12/2025 * Continue IV Zosyn 3.75 g day 4 * GI On board, we will follow up with the recommendations. Alcoholic liver cirrhosis with ascites POA * Patient is known case of alcoholic liver cirrhosis with MELD score 10. * Patient had therapeutic paracentesis on 01/02/2025, cell count showed WBC 58920, neutrophils 86, RBC 235 * Patient was discharged on oral antibiotics, however presented back on 01/10 as his PCP prompted due to elevated WBC * Patient currently on NPO, scheduled for therapeutic paracentesis by Interventional Radiology this afternoon * Repeat labs tomorrow Severe Acute leukocytosis POA * Patient came to ED for evaluation of increased white count which was recommended by his PCP * On arrival CBC showed white count of 24.5 * White Count trended down to 11.1 On 01/13/2025 * Continue IV antibiotics, we will trend WBC. Recent Left leg cellulitis POA * Patient was admitted to this facility for lower extremity cellulitis on 01/01/2025 * He was discharged home on Ceftin 500 mg p.o. twice daily fluconazole 200 mg p.o. daily * Patient admitted that he did not complete the prescribed antibiotics after discharge * New IV Zosyn 3.375 g day 4 * ID on board we will follow up with the recommendations Protonix 40 mg IV daily for GI prophylaxis We will replace electrolytes as needed per protocol We will start on insulin sliding scale q.4 hours with hypoglycemia protocol We will add prn medication for fever,pain,cough , nausea and vomiting Discharge Instructions: The patient was admitted for evaluation of possible spontaneous bacterial peritonitis (SBP). Diagnostic paracentesis was attempted but no significant ascitic fluid was present for analysis. The patient remained clinically stable throughout hospitalization with no signs of infection or decompensation. He is being discharged home in stable condition. Cefuroxime Axetil 500 mg Take one tablet by mouth twice daily until course is completed. Fluconazole 150 mg Take one tablet by mouth once daily until course is completed. Propranolol 10 mg Take one tablet by mouth once daily. Furosemide 20 mg Take one tablet by mouth once daily. Spironolactone 50 mg Take one tablet by mouth once daily. Lactulose Take by mouth twice daily; adjust dose to achieve 23 soft bowel movements per day. Primary Care Physician: Within 1 week for general follow-up and medication review. Gastroenterology/Hepatology: Within 12 weeks for ongoing management of cirrhosis and ascites. Return to ED if fever, confusion, abdominal pain, or signs of recurrent fluid ac cumulation occur. Home Medications: Reported Medications Fluconazole (Fluconazole) 150 Mg Tablet, 150 MG PO 7 DAYS, TAB 01/12/25 Cefuroxime Axetil (Cefuroxime) 500 Mg Tablet, 1 TAB PO BID for 14 Days, #14 TAB 0 Refills 01/12/25 Propranolol HCl (Propranolol HCl) 10 Mg Tablet, 10 MG PO TID, TAB 01/12/25 Propranolol HCl (Propranolol HCl) 10 Mg Tablet, 1 TAB PO TID for 30 Days, #60 TAB 0 Refills 01/01/25 Lactulose (Lactulose) 10 Gram/15 Ml Solution, 30 ML PO TID for constipation, #500 ML 0 Refills 01/01/25 Insulin Glargine,Hum.rec.anlog (Lantus Solostar) 100 Unit/Ml (3 Ml) Insuln.pen, 35 UNIT SQ DAILY for 30 Days, #15 ML 0 Refills 01/01/25 Furosemide (Furosemide) 20 Mg Tablet, 40 MG PO BID, TAB 01/01/25 Pantoprazole Sodium (Pantoprazole Sodium) 40 Mg Tablet.dr, 40 MG PO DAILY, TAB 10/14/21 Spironolactone (Spironolactone) 50 Mg Tablet, 50 MG PO DAILY, TAB 10/14/21 Discontinued Reported Medications Hydroxyzine HCl (Hydroxyzine HCl) 25 Mg Tablet, 25 MG PO HS, TAB 01/01/25 Continued Medications: Cefuroxime Axetil (Cefuroxime) 500 Mg Tablet 1 TAB PO BID for 14 Days, #14 TAB 0 Refills Fluconazole (Fluconazole) 150 Mg Tablet 150 MG PO 7 DAYS, TAB Furosemide (Furosemide) 20 Mg Tablet 40 MG PO BID, TAB Insulin Glargine,Hum.rec.anlog (Lantus Solostar) 100 Unit/Ml (3 Ml) Insuln.pen 35 UNIT SQ DAILY for 30 Days, #15 ML 0 Refills Lactulose (Lactulose) 10 Gram/15 Ml Solution 30 ML PO TID for constipation, #500 ML 0 Refills Pantoprazole Sodium (Pantoprazole Sodium) 40 Mg Tablet.dr 40 MG PO DAILY, TAB Propranolol HCl (Propranolol HCl) 10 Mg Tablet 1 TAB PO TID for 30 Days, #60 TAB 0 Refills Propranolol HCl (Propranolol HCl) 10 Mg Tablet 10 MG PO TID, TAB Spironolactone (Spironolactone) 50 Mg Tablet 50 MG PO DAILY, TAB Time spent arranging discharge: 1-30 minutes ATTESTATION BY PHYSICIAN I have seen and examined the patient. I reviewed the documentation, medical decision making, and treatment plan as noted by the resident above. I agree with the findings and plan of care. Jerry Lindsey IV, MD, ADIL SHAH QUADRI MD Jan 14, 2025 15:01
--- NOTE | 2025-01-14 15:21 | HMCIMG ---
Ascites SCAN History: Abdominal distention FINDINGS: There is no ascites seen throughout all 4 quadrants. IMPRESSION: No ascites identified. Therefore paracentesis was not performed
--- NOTE | 2025-01-14 15:40 | PN ---
GASTROENTEROLOGY PROGRESS NOTE Date of Visit: Jan 14, 2025 Time of Visit: 15:37 Events / Notes: [ 69-year-old with past medical history of chronic kidney disease stage III, alcoholic liver cirrhosis and recurrent paracentesis presents to the emergency room for evaluation of abnormal labs and generalized weakness. We are consulted due to concern for spontaneous bacterial peritonitis due to recurrent parac entesis. Patient seen and examined at bedside. Patient is awake alert and oriented x 3. He reports last EtOH intake was 5 years ago. Abdomen is rounded and distended. Per RN, patient is scheduled to undergo paracentesis on Tuesday. Patient denies any fever chills nausea or vomiting, hematochezia/melena. 01/14/25: Patient underwent abdominal ultrasound today showing no ascites and does paracentesis was not performed. Patient remains hemodynamically stable. T-max of 99.0. WBC at 11.1, hemoglobin 9.1, platelets 407. BUN of 20, glucose 180, magnesium 1.60, albumin 3.0. PT 12.7 INR 1.22. ] Review of Systems: CONSTITUTIONAL: No malaise or change in sensation of wellbeing. ENMT: No rhinorrhea, otorrhea, sinus pain, ear ache. CARDIOVASCULAR: No angina, palpitations, orthopnea or paroxysmal dyspnea. RESPIRATORY: No SOB. GASTROINTESTINAL: No abdominal pain, nausea, vomiting, diarrhea, hematemesis, melena or change in the patient's habitual bowel movements consistency/number. GENITOURINARY: No dysuria, hematuria or change in bladder continence. MUSCULOSKELETAL: No new muscle pain or decrease in muscular strength. No new joint swelling, redness or tenderness. SKIN: No new rash. Physical Exam: GEN: Awake, alert, oriented in person, time and place, and in no acute distress. HEENT: No rhinorrhea. Oral pharyngeal mucosa is pink, moist and within normal limits. CHEST: Lung auscultation revealed normal breath sounds bilaterally. CARDIAC:Heart sounds are regular. ABD: Soft, non-tender and not distended. No peritoneal signs on palpation. Normal bowel sounds. Last bm EXT: No cyanosis or clubbing. No edema. SKIN: Intact. No rashes. NEURO: Alert and oriented to name, place and person.No focal motor deficits. Normal speech. Vital Signs (last 8hr) Date Time Temp Pulse Resp B/P (MAP) Pulse Ox O2 Delivery O2 Flow Rate FiO2 10/20/25 12:00 98.6 92 20 151/55 93 Nasal Cannula 2.0 01/14/25 08:00 96 Room Air* 0 21 Laboratory: [ ] Laboratory: Test 01/14/25 11:19 01/14/25 03:49 01/13/25 00:11 Range/Units Whole Blood Glucose 267 #H 70-110 MG/DL White Blood Count 11.1 H 4.8-10.8 K/uL Red Blood Count 2.69 L 4.50-6.20 MIL/uL Hemoglobin 9.1 L 14.0-18.0 g/dL Hematocrit 27.9 L 42-54 % Mean Corpuscular Volume 103.7 H 79-99 fL Mean Corpuscular Hemoglobin 33.8 H 27.0-33.0 pg Mean Corpuscular Hemoglobin Concent 32.6 32.0-36.0 g/dL Red Cell Distribution Width 16.5 H 11.0-15.5 % Platelet Count 407 H 130-400 K/uL Mean Platelet Volume 9.7 7.5-10.5 fL Immature Granulocyte % (Auto) 5.4 H 0-1 % Neutrophils (%) (Auto) 69.5 40.0-77.0 % Lymphocytes (%) (Auto) 12.8 L 21.0-51.0 % Monocytes (%) (Auto) 9.1 3.0-13.0 % Eosinophils (%) (Auto) 1.5 0.0-8.0 % Basophils (%) (Auto) 1.7 0.0-5.0 % Neutrophils # (Auto) 7.7 1.8-7.7 K/uL Lymphocytes # (Auto) 1.4 1.0-4.8 K/uL Monocytes # (Auto) 1.0 0.1-1.0 K/uL Eosinophils # (Auto) 0.17 0.00-0.70 K/uL Basophils # (Auto) 0.19 0.00-0.20 K/uL Absolute Immature Granulocyte (auto 0.60 0-1 K/uL Nucleated Red Blood Cells 0.0 0.0-0.19 % Prothrombin Time 12.7 H 9.6-11.6 SEC Prothromb Time International Ratio 1.22 H 0.85-1.15 Activated Partial Thromboplast Time 32.4 26.3-35.5 SEC Sodium Level 140 136-145 mmol/L Potassium Level 3.6 3.5-5.1 mmol/L Chloride Level 102 101-111 mmol/L Carbon Dioxide Level 29 21-32 mmol/L Blood Urea Nitrogen 20 H 7-18 mg/dL Creatinine 1.2 0.5-1.3 mg/dL Glomerular Filtration Rate Calc 65 >90 mL/min Random Glucose 180 H 70-105 mg/dL Total Calcium 8.7 8.5-10.1 mg/dL Magnesium Level 1.60 L 1.80-2.40 mg/dL Total Bilirubin 1.0 0.2-1.0 mg/dL Aspartate Amino Transf (AST/SGOT) 23 10-37 U/L Alanine Aminotransferase (ALT/SGPT) 33 12-78 U/L Alkaline Phosphatase 110 50-136 U/L Total Protein 7.0 6.0-8.3 g/dL Albumin 3.0 L 3.5-5.0 g/dL Bedside Glucose Comment Notified Nurse Current Medications Medications (Trade) Dose Ordered Sig/Azael Route PRN Reason Start Time Stop Time Status Last Admin Dose Admin Acetaminophen (TYLenol 325MG TAB) 650 mg Q4H PRN PO MILD PAIN (1-3) 01/11/25 00:00 02/10/25 00:00 Acetaminophen (TYLenol 325MG TAB) 650 mg Q6H PRN PO TEMPERATURE GREATER THAN 101.5 01/11/25 00:00 02/10/25 00:00 Albumin Human 100 ml @ 0 mls/hr Q6H IV 01/11/25 00:00 01/11/25 06:01 DC 01/11/25 06:33 100 MLS/HR Ceftriaxone Sodium 1 gm/ Sodium Chloride 50 ml @ 100 mls/hr Q24H IV 01/11/25 00:00 01/10/25 23:55 DC Ceftriaxone Sodium (ROCEphine 1G INJ) 1 gm ONCE IVPB 01/10/25 19:00 01/10/25 23:46 DC 01/10/25 22:20 1 GM Ceftriaxone Sodium (ROCEphine 1G INJ) 1 gm Q24H IVPB 01/11/25 23:45 01/11/25 10:20 DC Dextrose (D50w) 50 ml AD PRN IV HYPOGLYCEMIA PROTOCOL 01/11/25 00:00 02/10/25 00:00 Furosemide (LASix 40MG TAB) 40 mg BID PO 01/12/25 21:00 02/11/25 20:59 01/14/25 13:40 40 MG Glucagon (Glucagon 1mg Kit) 1 mg AD PRN IM HYPOGLYCEMIA PROTOCOL 01/11/25 00:00 02/10/25 00:00 Insulin Human Regular (humuLIN R 100 UNIT/ML 3ML) INSULIN SLIDING SCAL... ACHS SQ 01/14/25 11:30 02/10/25 00:00 01/14/25 13:51 5 UNIT Insulin Human Regular (humuLIN R 100 UNIT/ML 3ML) INSULIN SLIDING SCAL... Q4H SQ 01/11/25 00:00 01/14/25 08:19 DC 01/13/25 20:23 7 UNIT Iron Sucrose (VenoFER) 300 mg Q24H IVP 01/12/25 13:30 01/12/25 13:29 DC Iron Sucrose 300 mg/Sodium Chloride 250 ml @ 83 mls/hr Q24H IV 01/12/25 14:00 01/13/25 17:01 DC 01/13/25 13:11 83 MLS/HR Lactulose (Constulose 20gm/ 30ml Udcup) 20 gm BID PRN PO CONSTIPATION 01/12/25 13:30 02/11/25 13:29 Lactulose (Constulose 20gm/ 30ml Udcup) 20 gm TID PO 01/12/25 14:00 01/12/25 13:23 DC Magnesium Sulfate 50 ml @ 0 mls/hr PROTOCOL PRN IV OTHER [SEE ORDER COMMENTS] 01/11/25 00:00 02/10/25 00:00 01/14/25 06:44 25 MLS/HR Ondansetron HCl (zoFRAN 4MG INJ) 4 mg Q6H PRN IV NAUSEA/VOMITING 01/11/25 00:00 02/10/25 00:00 Pantoprazole Sodium (PROTonix 40MG TAB) 40 mg DAILY PO 01/11/25 09:00 02/10/25 08:59 01/14/25 13:41 40 MG Piperacillin Sod/ Tazobactam Sod (Zosyn 3.375gm+NS 50ml) 3.375 gm Q8H IVPB 01/11/25 10:30 01/14/25 08:16 DC 01/14/25 01:44 3.375 GM Piperacillin Sod/ Tazobactam Sod (Zosyn 3.375gm+NS 50ml) 3.375 gm Q8H IVPB 01/14/25 10:30 01/24/25 10:29 01/14/25 10:40 3.375 GM Potassium Chloride 100 ml @ 100 mls/hr AD PRN IV POTASSIUM PROTOCOL 01/11/25 00:00 02/10/25 00:00 Potassium Chloride (K-Dur/Klor-Con 20meq) 20 meq AD PRN PO POTASSIUM PROTOCOL 01/11/25 00:00 02/10/25 00:00 01/13/25 08:26 20 MEQ Potassium Chloride (KCl 10% Elixir 20meq/15ml) 20 meq AD PRN PO POTASSIUM PROTOCOL 01/11/25 00:00 02/10/25 00:00 Propranolol HCl (Inderal) 10 mg TID PO 01/12/25 21:00 02/11/25 20:59 01/14/25 13:40 10 MG Spironolactone (Aldactone 25mg) 50 mg DAILY PO 01/13/25 09:00 02/12/25 08:59 01/14/25 13:40 50 MG Diagnostics / Radiology: [COPY/PASTE HERE IF NO REPORTS PLEASE DELETE SECTION] Assessment: Liver cirrhosis Ascites Abdominal distention Concern for spontaneous bacterial peritonitis Leukocytosis Plan: Case discussed with Dr. Lockhart Ascites not significant enough for paracentesis. Continue with IV antibiotic therapy. Will continue to monitor closely Home questions, concerns, and change in clinical status. Thank you for this consult CM SINGLETON Jan 14, 2025 15:40
--- NOTE | 2025-01-14 15:50 | NUR ---
DISCHARGE VERBAL& WRITTEN DC INSTRUCTIONS REVIEWED & GIVEN TO PT @ THIS TIME. QUESTIONS ENCOURAGED & CLARIFIED. PT TO CONTINUE HOME MEDICATIONS, NO NEW PRESCRIPTIONS. PT TO F/U W/PCP IN 1 WEEK. PT STATES HAVING AN APPT [facility] @ [facility] W/DR REDDY. TELE SHADE REMOVED. IV DC'D. PERSONAL BELONGINGS GATHERED. PT TO NOTIFY STAFF WHEN READY TO BE TAKEN TO PRIVATE VEHICLE.
[2025-01-14 16:00] VITALS: BP 110/65; PULSE 95; RESP 20; TEMP 98.6
--- NOTE | 2025-01-14 16:20 | NUR ---
DISCHARGE PT TAKEN TO PRIVATE VEHICLE VIA WC BY PRIMARY RN, Daniel GRIFFIN. NO DISTRESS NOTED.
--- NOTE | 2025-01-14 16:36 | PN ---
INFECTIOUS DISEASE PROGRESS NOTE Date of Service: Jan 14, 2025 SUBJECTIVE: [ ] PHYSICAL EXAM EYES: Anicteric. Pupils equal and reactive. HENT: No oral thrush seen, moist Oral mucosa NECK: Supple, no JVD or thyromegaly. LUNGS: Good air entry. No rales, no rhonchi. CARDIOVASCULAR: S1, S2 regular. No murmur heard. ABDOMEN: Soft, non tender, bowel sounds present, no organomegaly, distended, umbilical hernia CENTRAL NERVOUS SYSTEM: Awake, alert, oriented x 3. No focal deficits. SKIN: upper extremity bilateral petechiae. LYMPHATICS: No peripheral lymphadenopathy MUSCULOSKELETAL: No joint swelling, erythema or tenderness. EXTREMITIES: Left leg swollen with erythema and recurrent left leg cellulitis BACK: No deformity, no pressure ulcer. GENITOURINARY: No dysuria or hematuria Vital Sign (Last 12 Hours) 01/14/25 01/14/25 01/14/25 01/14/25 07:30 08:00 12:00 16:00 Temp 98.6 98.6 98.6 Pulse 94 92 95 Resp 20 20 20 B/P (MAP) 117/58 151/55 110/65 Pulse Ox 96 96 93 99 O2 Delivery Room Air Room Air* Nasal Cannula Room Air O2 Flow Rate 0 2.0 FiO2 21 Intake & Output (last 24hrs) 01/13/25 01/13/25 01/14/25 15:00 23:00 07:00 Intake Total 340.0 ml Output Total 100 ml 875 ml 400 ml Balance -100 ml -875 ml -60.0 ml LABS: Laboratory: Test 01/14/25 11:19 01/14/25 03:49 01/13/25 00:11 Range/Units Whole Blood Glucose 267 #H 70-110 MG/DL White Blood Count 11.1 H 4.8-10.8 K/uL Red Blood Count 2.69 L 4.50-6.20 MIL/uL Hemoglobin 9.1 L 14.0-18.0 g/dL Hematocrit 27.9 L 42-54 % Mean Corpuscular Volume 103.7 H 79-99 fL Mean Corpuscular Hemoglobin 33.8 H 27.0-33.0 pg Mean Corpuscular Hemoglobin Concent 32.6 32.0-36.0 g/dL Red Cell Distribution Width 16.5 H 11.0-15.5 % Platelet Count 407 H 130-400 K/uL Mean Platelet Volume 9.7 7.5-10.5 fL Immature Granulocyte % (Auto) 5.4 H 0-1 % Neutrophils (%) (Auto) 69.5 40.0-77.0 % Lymphocytes (%) (Auto) 12.8 L 21.0-51.0 % Monocytes (%) (Auto) 9.1 3.0-13.0 % Eosinophils (%) (Auto) 1.5 0.0-8.0 % Basophils (%) (Auto) 1.7 0.0-5.0 % Neutrophils # (Auto) 7.7 1.8-7.7 K/uL Lymphocytes # (Auto) 1.4 1.0-4.8 K/uL Monocytes # (Auto) 1.0 0.1-1.0 K/uL Eosinophils # (Auto) 0.17 0.00-0.70 K/uL Basophils # (Auto) 0.19 0.00-0.20 K/uL Absolute Immature Granulocyte (auto 0.60 0-1 K/uL Nucleated Red Blood Cells 0.0 0.0-0.19 % Prothrombin Time 12.7 H 9.6-11.6 SEC Prothromb Time International Ratio 1.22 H 0.85-1.15 Activated Partial Thromboplast Time 32.4 26.3-35.5 SEC Sodium Level 140 136-145 mmol/L Potassium Level 3.6 3.5-5.1 mmol/L Chloride Level 102 101-111 mmol/L Carbon Dioxide Level 29 21-32 mmol/L Blood Urea Nitrogen 20 H 7-18 mg/dL Creatinine 1.2 0.5-1.3 mg/dL Glomerular Filtration Rate Calc 65 >90 mL/min Random Glucose 180 H 70-105 mg/dL Total Calcium 8.7 8.5-10.1 mg/dL Magnesium Level 1.60 L 1.80-2.40 mg/dL Total Bilirubin 1.0 0.2-1.0 mg/dL Aspartate Amino Transf (AST/SGOT) 23 10-37 U/L Alanine Aminotransferase (ALT/SGPT) 33 12-78 U/L Alkaline Phosphatase 110 50-136 U/L Total Protein 7.0 6.0-8.3 g/dL Albumin 3.0 L 3.5-5.0 g/dL Bedside Glucose Comment Notified Nurse DIAGNOSTICS / RADIOLOGY: [facility] [address] [place] [address] [id number] IMAGING REPORT Signed PATIENT: EDWAR LOPEZ JR MR#: [id number] : 1955 SEX: M AGE: 69 LOCATION: [facility] ORDER 44 STATUS: REG ER REPORT#: [id number] SERVICE 42 REASON: sepsis ORDERING PHYSICIAN: ESTELA FINCH MD PROCEDURE: CXR1VW - CHEST 1VW EXAM: CR Chest, 1 View. CLINICAL HISTORY: sepsis COMPARISON: None provided. FINDINGS: LUNGS: The lungs show no infiltrate or other acute finding. PLEURAL SPACES: No evidence of pleural effusion or pneumothorax. MEDIASTINUM: The cardiomediastinal silhouette is within normal limits. BONES: No aggressive appearing osseous lesion seen. IMPRESSION: No acute cardiopulmonary pathology is evident. /[place] DICTATED BY: JACK BERNSTEIN Jr., MD DATE: 01/10/252099 ELECTRONICALLY SIGNED BY: JACK BERNSTEIN Jr., MD DATE: 01/10/252099 [facility] [address] [id number] IMAGING REPORT Signed PATIENT: EDWAR LOPEZ JR MR#: [id number] : 1955 SEX: M AGE: 69 LOCATION: [facility] ORDER 53 STATUS: ADM IN REPORT#: [id number] SERVICE 53 REASON: cirrhosis ORDERING PHYSICIAN: ANTWAN LEARY MD PROCEDURE: ABD PELWWO - CT ABDOMEN/PELVIS W/WO CONTRAS EXAM: CT Abdomen and Pelvis without and with IV contrast. CLINICAL HISTORY: Cirrhosis. TECHNIQUE: Thin collimated axial CT images of the abdomen and pelvis were obtained, with sagittal and coronal reformatted images also submitted. A CT scan is done according to ALARA (As Low As Reasonably Achievable). CONTRAST: Omnipaque 350 COMPARISON: None. FINDINGS: Mild right pleural effusion. No focal abnormality within the pancreas, spleen, adrenals, or kidneys. The liver is small with diffuse surface nodularity, suggesting liver cirrhosis. The portal vein is replaced by a portal cavernoma. Multiple dilated tortuous venous collateral vessels in the abdomen and pelvis, predominantly in the right intrahepatic location. An 8 mm gallbladder calculus with no acute cholecystitis. Mild colonic diverticulosis with no acute diverticulitis. There is no obvious bowel wall thickening. Bowel loops are normal in caliber without evidence of obstruction or ileus. The appendix is normal. There is no abnormality within the urinary bladder. Unremarkable reproductive organs. Abdominal and pelvic vessels are patent. Scattered atherosclerotic wall calcifications in the abdominal aorta and its branches No lymphadenopathy. Mild ascites. Large right inguinal hernia containing omental fat and fluid. Small umbilical hernia containing omental fat and fluid. There is no acute osseous abnormality. Multilevel thoracolumbar spondylosis. IMPRESSIONS: Liver cirrhosis. Portal cavernoma with multiple dilated tortuous venous collateral vessels in the abdomen and pelvis. Cholelithiasis with no acute cholecystitis. Mild colonic diverticulosis with no acute diverticulitis. Mild ascites. Right inguinal and umbilical hernias. Mild right pleural effusion. /[place] DICTATED BY: JACK BERNSTEIN Jr., MD DATE: 01/11/25148 ELECTRONICALLY SIGNED BY: JACK BERNSTEIN Jr., MD DATE: 01/11/25148 ASSESSMENT: Spontaneous bacterial peritonitis 2/2 recurrent paracentesis(ascitic fluid WBC 16,324 on 01/02/2025) POA Leukocytosis. Alcoholic liver cirrhosis with ascites POA Acute Kidney injury in cirrhosis, resolving. Uncontrolled Diabetes type 2. Acute on chronic anemia. Protein calorie malnutrition POA Umbilical hernia POA Right inguinal scrotal hernia POA PLAN: Continue Zosyn Continue home antibiotic, cefuroxime on discharge. This case was reviewed and discussed with my supervising physician Dr. Wesley and the above assessment and plan was formulated and agreed upon. ATTESTATION BY PHYSICIAN I have seen and examined the patient. I reviewed the documentation, medical decision making, and treatment plan as noted by the mid-level provider above. I agree with the findings and plan of care. REINIER WESLEY MD, [facility] Jan 14, 2025 16:36
--- NOTE | 2025-01-14 23:02 | PN ---
FOLLOWUP PROGRESS NOTE SUBJECTIVE: A 69-year-old male with a history of known cirrhosis initially presented with acute on chronic renal failure. The patient also with peritonitis. Remains on the antibiotics. The patient is scheduled for a paracentesis later today. He has had acute on chronic renal failure in the hospital. Creatinine has been fairly stable overnight and he is being seen as a followup visit for all the above. REVIEW OF SYSTEMS: GENERAL: He is feeling weak and tired. HEENT: No change in vision. No change in hearing. CARDIOVASCULAR: No recurrent chest pain, palpitations, pulmonary embolus or shortness of breath. GASTROINTESTINAL: He is tolerating a diet. MUSCULOSKELETAL: Complaints of weakness. NEUROLOGIC: He is awake. He is alert. PHYSICAL EXAMINATION: VITAL SIGNS: Blood pressure is 117/58, pulse 90. GENERAL: He is a chronically ill male lying in bed on the medical floor. HEENT: Head is atraumatic. Pupils are equal, round and reactive to light. Oropharynx is without exudate. Nares clear. NECK: There is no JVP. There is no thyromegaly, no mass. CARDIOVASCULAR: Regular. There is no S3, S4, gallop. LUNGS: Coarse with equal thoracic movement. ABDOMEN: Soft and nondistended. EXTREMITIES: Reveal no clubbing, no cyanosis. NEUROLOGICAL: He is awake. He is alert. LABORATORY DATA: BUN 20, creatinine 1.2, sodium 140. Hemoglobin 9.1, hematocrit is 27, and white cell count is 11,000. IMPRESSION: * Acute on chronic renal failure. * Peritonitis. * Cirrhosis. * Anemia. PLAN: The patient will continue with the antibiotics as prescribed. Creatinine has remained fairly stable. He remains hemodynamically stable. We will continue to monitor the chemistries closely. The patient's electrolytes have all been aggressively repleted. He is scheduled for paracentesis later today. The patient is being seen by case management for final disposition. We will follow closely. TID: [id number] RECEIPT: [id number]
== END 2025-01-14 16:15 | disposition home or self-care (01) | DRG 862 ==
LOC: EDH 15:37 → EDHIP 23:33 → 2AH 01-12 01:00
PROVIDERS: ADMIT Hospitalist; ATTEND Hospitalist
DX: T81.40XA Infection following a procedure, unspecified, initial encounter (principal); K65.2 Spontaneous bacterial peritonitis; E46 Unspecified protein-calorie malnutrition; N17.9 Acute kidney failure, unspecified; K70.31 Alcoholic cirrhosis of liver with ascites; N18.30 Chronic kidney disease, stage 3 unspecified; I12.9 Hypertensive chronic kidney disease with stage 1 through stage 4 chronic kidney disease, or unspecified chronic kidney disease; E11.65 Type 2 diabetes mellitus with hyperglycemia; E11.22 Type 2 diabetes mellitus with diabetic chronic kidney disease; D64.9 Anemia, unspecified; K42.9 Umbilical hernia without obstruction or gangrene; K40.90 Unilateral inguinal hernia, without obstruction or gangrene, not specified as recurrent; D72.829 Elevated white blood cell count, unspecified; E78.00 Pure hypercholesterolemia, unspecified; Z79.4 Long term (current) use of insulin; Z87.891 Personal history of nicotine dependence; Z68.24 Body mass index [BMI] 24.0-24.9, adult
CPT/HCPCS: 36415; 36600; 71045; 74178; 76705; 80048; 80053; 80076; 81001; 82140; 82435; 82550; 82803; 82947; 82948; 83036; 83540; 83550; 83605; 83735; 84100; 84132; 84145; 84295; 84484; 85018; 85025; 85027; 85610; 85730; 87040; 87086; 96374; 99285; G0378; J0696; J1756; J1815; J2543; J3475; J7050; P9046; P9047; Q9967